=== PATIENT | female | born 1940 | race Caucasian/White ===

== ENCOUNTER 2020-01-30 03:41 | Inpatient (IN) | payer MEDICARE, OTHER ==
--- NOTE | 2020-01-30 04:22 | ED ---
General Adult HPI - General Chief complaint: Weakness Stated complaint: Dizziness, Weakness Time Seen by Provider: 01/30/20 04:09 Source: patient, EMS Mode of arrival: EMS Limitations: no limitations - History of Present Illness Initial comments: This patient is 79-year-old woman who presents to be evaluated for constellation of symptoms. She notes that she was feeling somewhat dizzy or lightheaded, she was having some nausea, and she states that her vision seemed off. She was seeing double. The symptoms occurred approximate 1-2 hours ago. She denies chest pain. She may have had a little bit of diaphoresis. Patient called EMS and brought here for evaluation. In addition, patient states she is feeling anxious and is having some bilateral perioral numbness. -: hour(s) Location: face Severity scale (1-10): 0 Consistency: constant Improves with: none Worsens with: none Associated Symptoms: diaphoresis, nausea/vomiting - Related Data Home Medications Medication Instructions Recorded Confirmed Acetaminophen-Codeine 300-30mg 1 tab PO Q6H PRN 01/30/20 01/30/20 [Tylenol w/codeine #3] Calcium Carbonate [Calcium] 600 mg PO DAILY 01/30/20 01/30/20 Etanercept [Enbrel Sureclick] 50 mg SQ SA 01/30/20 01/30/20 Fexofenadine HCl [Jackeline Allergy] 90 mg PO BID 01/30/20 01/30/20 Ondansetron [Zofran] 4 mg PO Q8H PRN 01/30/20 01/30/20 Previous Rx's Medication Instructions Recorded Aspirin 81 mg PO DAILY #30 chew 02/02/20 Atorvastatin [Lipitor] 40 mg PO HS #30 tab 02/02/20 Nitroglycerin Sl Tabs [Nitrostat] 0.4 mg SUBLINGUAL Q5M PRN #20 tab 02/02/20 Ticagrelor [Brilinta] 90 mg PO BID #30 tab 02/02/20 amLODIPine [Norvasc] 5 mg PO DAILY #30 tab 02/02/20 lisinopriL [Zestril] 20 mg PO DAILY #30 tab 02/02/20 Allergies Allergy/AdvReac Type Severity Reaction Status Date / Time Sulfa (Sulfonamide Allergy Rash/Hives Verified 01/30/20 08:51 Antibiotics) Review of Systems ROS Statement: Those systems with pertinent positive or pertinent negative responses have been documented in the HPI. ROS Other: All systems not noted in ROS Statement are negative. Constitutional: Denies: fever, chills, weakness Eyes: Reports: vision change. Denies: eye pain ENT: Denies: ear pain Respiratory: Reports: dyspnea. Denies: cough, wheezes Cardiovascular: Denies: chest pain, palpitations, orthopnea, edema, syncope Gastrointestinal: Reports: nausea. Denies: abdominal pain, vomiting Past Medical History Past Medical History: Hypertension Additional Past Medical History / Comment(s): Neuropathy, Arthritis History of Any Multi-Drug Resistant Organisms: None Reported Past Surgical History: Hysterectomy, Orthopedic Surgery Smoking Status: Never smoker Past Alcohol Use History: None Reported Past Drug Use History: None Reported - Past Family History Mother Family Medical History: Myocardial Infarction ([place]) Father Family Medical History: CVA/TIA General Exam General appearance: alert, in no apparent distress Head exam: Present: atraumatic, normocephalic, normal inspection Eye exam: Present: normal appearance, PERRL, EOMI. Absent: scleral icterus, conjunctival injection, nystagmus ENT exam: Present: normal oropharynx Neck exam: Present: normal inspection, full ROM Respiratory exam: Present: normal lung sounds bilaterally. Absent: respiratory distress, wheezes, rales, rhonchi, stridor Cardiovascular Exam: Present: regular rate, normal rhythm, normal heart sounds. Absent: systolic murmur, diastolic murmur, rubs, gallop GI/Abdominal exam: Present: soft. Absent: distended, tenderness, guarding, rebound, rigid, mass Extremities exam: Present: normal inspection, normal capillary refill. Absent: pedal edema, calf tenderness Back exam: Present: normal inspection. Absent: CVA tenderness (R), CVA tenderness (L) Neurological exam: Present: alert, oriented X3, CN II-XII intact. Absent: motor sensory deficit Skin exam: Present: warm, dry, intact, normal color. Absent: rash Course Vital Signs 01/30/20 01/30/20 01/30/20 04:01 05:56 09:01 Temperature 97.8 F 97.8 F Pulse Rate 73 71 85 Respiratory 18 18 16 Rate Blood Pressure 184/80 166/80 152/76 O2 Sat by Pulse 100 96 97 Oximetry EKG Findings - EKG Results: EKG: interpreted by NOÉ, sinus rhythm (Rate 72 bpm), normal axis, normal QRS - Blocks, [place], Hypertrophy, ST Abn: Repolarization changes or abnormalities: nonspecific abnormality, ST segment, and/or T wave Medical Decision Making - Medical Decision Making This patient is 79-year-old woman with constellation of symptoms including lightheadedness, dyspnea, nausea, [id number] numbness and diplopia. After my initial evaluation, I did send the patient for CT and also labs. The CT does not reveal evidence of stroke. On reevaluation, the patient's symptoms have all resolved. She states that she is no longer having diplopia. Workup does reveal minimally elevated troponin and patient will be kept for serial cardiac enzymes and telemetry monitoring. - Lab Data Result diagrams: 02/02/20 06:46 02/02/20 06:46 Lab Results 01/30/20 01/30/20 01/30/20 Range/Units 04:45 04:45 04:45 WBC 9.0 (3.8-10.6) k/uL RBC 4.48 (3.80-5.40) m/uL Hgb 13.4 (11.4-16.0) gm/dL Hct 41.1 (34.0-46.0) % MCV 91.6 (80.0-100.0) fL MCH 30.0 (25.0-35.0) pg MCHC 32.7 (31.0-37.0) g/dL RDW 12.9 (11.5-15.5) % Plt Count 216 (150-450) k/uL Neutrophils % 82 % Lymphocytes % 11 % Monocytes % 5 % Eosinophils % 1 % Basophils % 0 % Neutrophils # 7.4 (1.3-7.7) k/uL Lymphocytes # 1.0 (1.0-4.8) k/uL Monocytes # 0.5 (0-1.0) k/uL Eosinophils # 0.1 (0-0.7) k/uL Basophils # 0.0 (0-0.2) k/uL PT 10.2 (9.0-12.0) sec INR 1.0 (<1.2) APTT 20.7 L (22.0-30.0) sec Sodium (137-145) mmol/L Potassium (3.5-5.1) mmol/L Chloride (98-107) mmol/L Carbon Dioxide (22-30) mmol/L Anion Gap mmol/L BUN (7-17) mg/dL Creatinine (0.52-1.04) mg/dL Est GFR (CKD-EPI)AfAm (>60 ml/min/1.73 sqM) Est GFR (CKD-EPI)NonAf (>60 ml/min/1.73 sqM) Glucose (74-99) mg/dL Lactic Ac Sepsis Rflx Plasma Lactic Acid Burt (0.7-2.0) mmol/L Calcium (8.4-10.2) mg/dL Magnesium (1.6-2.3) mg/dL Total Bilirubin (0.2-1.3) mg/dL AST (14-36) U/L ALT (4-34) U/L Alkaline Phosphatase (38-126) U/L Troponin I (0.000-0.034) ng/mL Total Protein (6.3-8.2) g/dL Albumin (3.5-5.0) g/dL Urine Color Yellow Urine Appearance Clear (Clear) Urine pH 6.5 (5.0-8.0) Ur Specific Carlin 1.013 (1.001-1.035) Urine Protein Negative (Negative) Urine Glucose (UA) Negative (Negative) Urine Ketones 1+ H (Negative) Urine Blood Negative (Negative) Urine Nitrite Negative (Negative) Urine Bilirubin Negative (Negative) Urine Urobilinogen <2.0 (<2.0) mg/dL Ur Leukocyte Esterase Large H (Negative) Urine RBC 4 (0-5) /hpf Urine WBC 8 H (0-5) /hpf Ur Squamous Epith Cells 1 (0-4) /hpf Urine Bacteria Rare H (None) /hpf 01/30/20 01/30/20 01/30/20 Range/Units 04:45 04:45 04:45 WBC (3.8-10.6) k/uL RBC (3.80-5.40) m/uL Hgb (11.4-16.0) gm/dL Hct (34.0-46.0) % MCV (80.0-100.0) fL MCH (25.0-35.0) pg MCHC (31.0-37.0) g/dL RDW (11.5-15.5) % Plt Count (150-450) k/uL Neutrophils % % Lymphocytes % % Monocytes % % Eosinophils % % Basophils % % Neutrophils # (1.3-7.7) k/uL Lymphocytes # (1.0-4.8) k/uL Monocytes # (0-1.0) k/uL Eosinophils # (0-0.7) k/uL Basophils # (0-0.2) k/uL PT (9.0-12.0) sec INR (<1.2) APTT (22.0-30.0) sec Sodium 131 L (137-145) mmol/L Potassium 3.3 L (3.5-5.1) mmol/L Chloride 95 L (98-107) mmol/L Carbon Dioxide 24 (22-30) mmol/L Anion Gap 12 mmol/L BUN 24 H (7-17) mg/dL Creatinine 0.63 (0.52-1.04) mg/dL Est GFR (CKD-EPI)AfAm >90 (>60 ml/min/1.73 sqM) Est GFR (CKD-EPI)NonAf 87 (>60 ml/min/1.73 sqM) Glucose 161 H (74-99) mg/dL Lactic Ac Sepsis Rflx Plasma Lactic Acid Burt 2.2 H* (0.7-2.0) mmol/L Calcium 10.3 H (8.4-10.2) mg/dL Magnesium 1.2 L (1.6-2.3) mg/dL Total Bilirubin 0.7 (0.2-1.3) mg/dL AST 30 (14-36) U/L ALT 27 (4-34) U/L Alkaline Phosphatase 76 (38-126) U/L Troponin I 0.148 H* (0.000-0.034) ng/mL Total Protein 7.2 (6.3-8.2) g/dL Albumin 4.4 (3.5-5.0) g/dL Urine Color Urine Appearance (Clear) Urine pH (5.0-8.0) Ur Specific Carlin (1.001-1.035) Urine Protein (Negative) Urine Glucose (UA) (Negative) Urine Ketones (Negative) Urine Blood (Negative) Urine Nitrite (Negative) Urine Bilirubin (Negative) Urine Urobilinogen (<2.0) mg/dL Ur Leukocyte Esterase (Negative) Urine RBC (0-5) /hpf Urine WBC (0-5) /hpf Ur Squamous Epith Cells (0-4) /hpf Urine Bacteria (None) /hpf 01/30/20 Range/Units 05:40 WBC (3.8-10.6) k/uL RBC (3.80-5.40) m/uL Hgb (11.4-16.0) gm/dL Hct (34.0-46.0) % MCV (80.0-100.0) fL MCH (25.0-35.0) pg MCHC (31.0-37.0) g/dL RDW (11.5-15.5) % Plt Count (150-450) k/uL Neutrophils % % Lymphocytes % % Monocytes % % Eosinophils % % Basophils % % Neutrophils # (1.3-7.7) k/uL Lymphocytes # (1.0-4.8) k/uL Monocytes # (0-1.0) k/uL Eosinophils # (0-0.7) k/uL Basophils # (0-0.2) k/uL PT (9.0-12.0) sec INR (<1.2) APTT (22.0-30.0) sec Sodium (137-145) mmol/L Potassium (3.5-5.1) mmol/L Chloride (98-107) mmol/L Carbon Dioxide (22-30) mmol/L Anion Gap mmol/L BUN (7-17) mg/dL Creatinine (0.52-1.04) mg/dL Est GFR (CKD-EPI)AfAm (>60 ml/min/1.73 sqM) Est GFR (CKD-EPI)NonAf (>60 ml/min/1.73 sqM) Glucose (74-99) mg/dL Lactic Ac Sepsis Rflx Y Plasma Lactic Acid Burt (0.7-2.0) mmol/L Calcium (8.4-10.2) mg/dL Magnesium (1.6-2.3) mg/dL Total Bilirubin (0.2-1.3) mg/dL AST (14-36) U/L ALT (4-34) U/L Alkaline Phosphatase (38-126) U/L Troponin I (0.000-0.034) ng/mL Total Protein (6.3-8.2) g/dL Albumin (3.5-5.0) g/dL Urine Color Urine Appearance (Clear) Urine pH (5.0-8.0) Ur Specific Carlin (1.001-1.035) Urine Protein (Negative) Urine Glucose (UA) (Negative) Urine Ketones (Negative) Urine Blood (Negative) Urine Nitrite (Negative) Urine Bilirubin (Negative) Urine Urobilinogen (<2.0) mg/dL Ur Leukocyte Esterase (Negative) Urine RBC (0-5) /hpf Urine WBC (0-5) /hpf Ur Squamous Epith Cells (0-4) /hpf Urine Bacteria (None) /hpf Critical Care Time Critical Care Time: Yes (40 minutes) Disposition Clinical Impression: Acute coronary syndrome with high troponin, Transient diplopia, Hypomagnesemia, Hyponatremia Disposition: ADMITTED IP TO THIS [facility] Condition: Serious
[2020-01-30] MEDS ORDERED: ONDANSETRON 4 MG/2 ML VIAL IVP STA ×2 (04:59→07:08)
[2020-01-30 05:06] LABS: Basophils % (A) 0 %; Eosinophils # (A) 0.1 k/uL (0-0.7); Eosinophils % (A) 1 %; HCT 41.1 % (34.0-46.0); HGB 13.4 gm/dL (11.4-16.0); Lymphocytes % (A) 11 %; MCHC 32.7 g/dL (31.0-37.0); MCV 91.6 fL (80.0-100.0); Mean Platelet Volume 7.9; Monocytes # (A) 0.5 k/uL (0-1.0); Monocytes % (A) 5 %; Neutrophils # (A) 7.4 k/uL (1.3-7.7); Neutrophils % (A) 82 %; Platelet Count 216 k/uL (150-450); RBC 4.48 m/uL (3.80-5.40); RDW 12.9 % (11.5-15.5)
--- NOTE | 2020-01-30 05:07 | XR ---
EXAMINATION TYPE: XR chest 1V DATE OF EXAM: 01/30/2020 COMPARISON: NONE HISTORY: Weakness TECHNIQUE: FINDINGS: There are multiple old right-sided healed rib fractures. Lungs are clear of infiltrate. The re is no heart failure. Thoracic aorta is atheromatous. There are chest leads. Costophrenic angles ar e clear. There are old upper left side rib fractures also. IMPRESSION: No active cardiopulmonary disease. Minimal fibrotic changes. No heart failure.
[2020-01-30 05:19] LABS: Appearance,Urine Clear (Clear); Bacteria,Urine Rare /hpf; Bilirubin,Urine Negative (Negative); Blood,Urine Negative (Negative); Color,Urine Yellow; Glucose,Urine (UA) Negative (Negative); Ketones,Urine 1+ (Negative); Leukocyte Esterase,Urine Large (Negative); Nitrite,Urine Negative (Negative); PH, Urine 6.5 (5.0-8.0); Protein,Urine Negative (Negative); RBC,Urine 4 /hpf (0-5); Specific Gravity,Urine 1.013 (1.001-1.035); Squamous Epithelial Cell,Urine 1 /hpf (0-4); Urobilinogen,Urine <2.0 mg/dL (<2.0); WBC,Urine 8 /hpf (0-5)
[2020-01-30 05:21] LABS: ALT 27 U/L (4-34); AST 30 U/L (14-36); African American GFR (CKD) >90 (>60 ml/min/1.73 sqM); Albumin 4.4 g/dL (3.5-5.0); Alkaline Phosphatase 76 U/L (38-126); Anion Gap 12 mmol/L; Blood Urea Nitrogen 24 mg/dL (7-17); Calcium 10.3 mg/dL (8.4-10.2); Carbon Dioxide 24 mmol/L (22-30); Chloride 95 mmol/L (98-107); Glucose 161 mg/dL (74-99); Magnesium 1.2 mg/dL (1.6-2.3); Non-African American GFR(CKD) 87 (>60 ml/min/1.73 sqM); Potassium 3.3 mmol/L (3.5-5.1); Sodium 131 mmol/L (137-145); Total Bilirubin 0.7 mg/dL (0.2-1.3); Total Protein 7.2 g/dL (6.3-8.2)
--- NOTE | 2020-01-30 05:24 | CT ---
EXAMINATION TYPE: CT brain wo con DATE OF EXAM: 01/30/2020 COMPARISON: None HISTORY: Dizziness, N&V CT DLP: 1085 mGycm Automated exposure control for dose reduction was used. Images were obtained of the brain without contrast. There is extensive hypodensity in the periventricular white matter. There is no mass effect nor midli ne shift. There is no sign of intracranial hemorrhage. There is cerebral atrophy. Calvarium is intact . IMPRESSION: Cerebral atrophy. Extensive white matter hypodensity consistent with chronic small vessel ischemia.
[2020-01-30 05:25] LABS: Prothrombin Time 10.2 sec (9.0-12.0)
--- NOTE | 2020-01-30 05:27 | CT ---
EXAMINATION TYPE: CT angio head neck DATE OF EXAM: 01/30/2020 COMPARISON: None HISTORY: dizziness, N&V CT DLP: 327.8 mGycm Automated exposure control for dose reduction was used. CONTRAST: Performed with IV Contrast, patient injected with 65 mL of Isovue 370. Images were obtained from the aortic arch to the vertex of the brain with IV contrast. There are 3-D post processed images. There is normal branching pattern of the great vessels on the aortic arch. There is bilateral arteria l flow in the subclavian arteries. There is bilateral arterial flow in the common internal and skylights assembler al carotid arteries. The carotid artery bifurcations are widely patent. There is bilateral arterial f low in the vertebral arteries. There is arterial flow in the vertebrobasilar artery system. There is no evidence of carotid artery aneurysm or dissection. There is no evidence of stenosis. There is arterial flow in the anterior middle and posterior cerebral arteries. There is normal contra st opacification of the venous sinuses. I see no sign of intracranial aneurysm or neovascularity. The re is normal opacification of the venous sinuses. There is no mass effect. There is no evidence of in tracranial arterial stenosis. IMPRESSION: Negative CT angiogram of the neck. Negative CT angiogram of the brain.
[2020-01-30] MEDS ORDERED: SODIUM CHLORIDE 0.9% 500 ML 500 ML IV STA (05:44)
[2020-01-30] MEDS ORDERED: MAGNESIUM SULFATE-D5W PMX 1 GM in DEXTROSE/WATER 1 100ML.BAG IVPB ONE (05:44)
[2020-01-30] MEDS ORDERED: POTASSIUM CHLORIDE ER 20 MEQ TAB.ER PO STA ×2 (05:45→15:37)
[2020-01-30 06:08] LABS: Partial Thromboplastin Time 20.7 sec (22.0-30.0)
[2020-01-30] MEDS ORDERED: NITROGLYCERIN OINT 1 INCH/GM PACKET TOPICAL STA (06:34)
[2020-01-30] MEDS ORDERED: HEPARIN SODIUM,PORCINE 5,000 UNIT/ML 1 ML VIAL IV ONE (08:18)
[2020-01-30] MEDS ORDERED: NITROGLYCERIN SL TABS 0.4 MG TAB SUBLINGUAL PRN (08:18)
[2020-01-30] MEDS: HEPARIN SOD,PORK IN 0.45% NACL 25,000 UNIT in 0.45% NACL 1 250ML.BAG IV SCH (08:59)
--- NOTE | 2020-01-30 12:32 | P.CRDCN ---
History of Present Illness Consult date: 01/30/20 History of present illness: CHIEF COMPLAINT: Elevated troponins HISTORY OF PRESENT ILLNESS: 79-year-old female with a history of hypertension and hyperlipidemia who presented to the emergency room with a chief complaint of lightheadedness nausea, and double vision. Patient states she follows in the office with Dr. Redd. Patient reports she woke up this morning and was feeling lightheaded and nauseous. She states her lightheadedness has improved but she is still having some nausea. She also reports having some double vision this morning which has resolved. She denies any chest pain or pressure. Denies shortness of breath. Denies palpitations. Patient reports she was supposed to have a stress test done but it was canceled on a few occasions and she has not had it completed yet. She denies alcohol use or history of smoking. DIAGNOSTICS: EKG reveals sinus rhythm with ST depression Chest xray negative for acute process Laboratory data: W BC 9.0. Hemoglobin 13.4. Platelet count 216. Sodium 131. Potassium 3.3. BUN 24. Creatinine 0.63. Lactic acid 2.2. Repeat 1.1. Magnesium 1.2. Troponin 0.148. 1.050. 1.270. Current home cardiac medications include Zocor 5 mg daily, hydrochlorothiazide 25 mg daily, and Vasotec 10 mg daily REVIEW OF SYSTEMS: CONSTITUTIONAL: Denies fever or chills. HEENT: Denies blurred vision, vision changes, or eye pain. Denies hemoptysis CARDIOVASCULAR: Denies chest pain, orthopnea, PND or palpitations RESPIRATORY: No shortness of breath. GASTROINTESTINAL: Denies abdominal pain. Denies nausea or vomiting. HEMATOLOGIC: Denies bleeding disorders. GENITOURINARY: Denies any blood in urine. SKIN: Denies pruitis. Denies rash. PHYSICAL EXAM: VITAL SIGNS: Reviewed. GENERAL: Well-developed in no acute distress. HEENT: Head is normocephalic. Pupils are equal, round. Sclerae anicteric. Mucous membranes of the mouth are moist. Neck supple. No JVD or thyromegaly LUNGS: Respirations even and unlabored. Lungs essentially clear to auscultation bilaterally. HEART: Regular rate and rhythm. S1 and S2 heard. ABDOMEN: Soft. Nondistended. Nontender. EXTREMITIES: Normal range of motion. No clubbing or cyanosis. Peripheral pulses intact. No lower extremity edema NEUROLOGIC: Awake and alert. Oriented x 3. ASSESSMENT: Non-ST elevated myocardial infarction Hypertension Hyperlipidemia PLAN: Continue IV heparin drip Resume home antihypertensive medications. Monitor blood pressure Begin aspirin 81 mg daily Continue nitro paste every 6 hours Obtain 2-D echo to assess cardiac structure and function Nothing by mouth at midnight Patient will be reevaluated tomorrow morning for possible cardiac catheterization Nurse practitioner note has been reviewed by physician. Signing provider agrees with the documented findings, assessment, and plan of care. Past Medical History Past Medical History: Hypertension Additional Past Medical History / Comment(s): Neuropathy, Arthritis History of Any Multi-Drug Resistant Organisms: None Reported Past Surgical History: Hysterectomy, Orthopedic Surgery Smoking Status: Never smoker Past Alcohol Use History: None Reported Past Drug Use History: None Reported Medications and Allergies Home Medications Medication Instructions Recorded Confirmed Type Acetaminophen-Codeine 300-30mg 1 tab PO Q6H PRN 01/30/20 01/30/20 History [Tylenol w/codeine #3] Calcium Carbonate [Calcium] 600 mg PO DAILY 01/30/20 01/30/20 History Enalapril Maleate [Vasotec] 10 mg PO DAILY 01/30/20 01/30/20 History Etanercept [Enbrel Sureclick] 50 mg SQ SA 01/30/20 01/30/20 History Fexofenadine HCl [Jackeline Allergy] 90 mg PO BID 01/30/20 01/30/20 History Nitrofurantoin Monohyd/M-Cryst 100 mg PO W/BRKFST 01/30/20 01/30/20 History [Macrobid] Ondansetron [Zofran] 4 mg PO Q8H PRN 01/30/20 01/30/20 History Simvastatin [Zocor] 5 mg PO HS 01/30/20 01/30/20 History hydroCHLOROthiazide [Hydrodiuril] 25 mg PO DAILY 01/30/20 01/30/20 History Allergies Allergy/AdvReac Type Severity Reaction Status Date / Time Sulfa (Sulfonamide Allergy Rash/Hives Verified 01/30/20 08:51 Antibiotics) Physical Exam Vitals: Vital Signs Temp Pulse Resp BP Pulse Ox 01/30/20 09:01 97.8 F 85 16 152/76 97 01/30/20 05:56 71 18 166/80 96 01/30/20 04:01 97.8 F 73 18 184/80 100 Intake and Output 01/29/20 01/30/20 01/30/20 22:59 06:59 14:59 Other: Weight 58.967 kg Results 01/30/20 04:45 01/30/20 04:45 Cardiac Enzymes 01/30/20 01/30/20 01/30/20 Range/Units 04:45 04:45 08:37 AST 30 (14-36) U/L Troponin I 0.148 H* 1.050 H* (0.000-0.034) ng/mL 01/30/20 Range/Units 11:21 AST (14-36) U/L Troponin I 1.270 H* (0.000-0.034) ng/mL Coagulation 01/30/20 Range/Units 04:45 PT 10.2 (9.0-12.0) sec APTT 20.7 L (22.0-30.0) sec CBC 01/30/20 Range/Units 04:45 WBC 9.0 (3.8-10.6) k/uL RBC 4.48 (3.80-5.40) m/uL Hgb 13.4 (11.4-16.0) gm/dL Hct 41.1 (34.0-46.0) % Plt Count 216 (150-450) k/uL Comprehensive Metabolic Panel 01/30/20 Range/Units 04:45 Sodium 131 L (137-145) mmol/L Potassium 3.3 L (3.5-5.1) mmol/L Chloride 95 L (98-107) mmol/L Carbon Dioxide 24 (22-30) mmol/L BUN 24 H (7-17) mg/dL Creatinine 0.63 (0.52-1.04) mg/dL Glucose 161 H (74-99) mg/dL Calcium 10.3 H (8.4-10.2) mg/dL AST 30 (14-36) U/L ALT 27 (4-34) U/L Alkaline Phosphatase 76 (38-126) U/L Total Protein 7.2 (6.3-8.2) g/dL Albumin 4.4 (3.5-5.0) g/dL Current Medications Generic Name Dose Route Start Last Admin Trade Name Freq PRN Reason Stop Dose Admin Aspirin 81 mg 01/31/20 09:00 Aspirin PO DAILY [facility] Heparin Sodium/Sodium Chloride 250 mls @ 7.076 mls/hr 01/30/20 08:30 01/30/20 08:59 25,000 unit/ Sodium Chloride IV 12 units/kg/hr .Q24H MARCUS 7.076 mls/hr Administration Protocol 12 UNITS/KG/HR Lisinopril 20 mg 01/30/20 11:45 Zestril PO DAILY [facility] Nitroglycerin 0.4 mg 01/30/20 08:18 Nitrostat SUBLINGUAL Q5M PRN Chest Pain Intake and Output 01/29/20 01/30/20 01/30/20 22:59 06:59 14:59 Other: Weight 58.967 kg 01/30/20 04:45 01/30/20 04:45
[2020-01-30] MEDS: lisinopriL 20 MG TAB PO SCH (13:07)
[2020-01-30] MEDS ORDERED: POTASSIUM CHLORIDE ER 20 MEQ TAB.ER PO SCH (17:00)
[2020-01-30] MEDS ORDERED: lisinopriL 20 MG TAB PO STA (21:12)
[2020-01-30] MEDS: ATORVASTATIN 10 MG TAB PO SCH (21:25)
[2020-01-30] MEDS: DOCUSATE 100 MG CAP PO PRN (21:25)
[2020-01-30] MEDS: hydroCHLOROthiazide 25 MG TAB PO SCH (21:25)
[2020-01-30] MEDS: MELATONIN 3 MG TABLET PO PRN (21:26)
[2020-01-31 06:37] LABS: Cholesterol 173 mg/dL (<200); HDL Cholesterol 76 mg/dL (40-60); LDL Cholesterol,Calculated 85 mg/dL (0-99); Triglycerides 59 mg/dL (<150)
[2020-01-31] MEDS: ASPIRIN 81 MG PO SCH (08:43)
[2020-01-31] MEDS: hydroCHLOROthiazide 25 MG TAB PO SCH (08:43)
[2020-01-31] MEDS: lisinopriL 20 MG TAB PO SCH (08:43)
[2020-01-31] MEDS: FAMOTIDINE 20 MG/2 ML VIAL IV SCH ×2 (08:43→20:55)
[2020-01-31] MEDS ORDERED: ASPIRIN 325 MG TAB PO SCH (09:00)
--- NOTE | 2020-01-31 09:19 | ECHOF ---
Referral Reason:LV function MEASUREMENTS -------- HEIGHT: 157.5 cm WEIGHT: 59.0 kg BP: 166/80 IVSd: 1.2 cm (0.6 - 1.1) LVIDd: 3.3 cm (3.9 - 5.3) LVPWd: 1.4 cm (0.6 - 1.1) EDV(Teich): 43 ml IVSs: 1.6 cm LVIDs: 1.8 cm LVPWs: 1.6 cm %IVS Thck: 35 % ESV(Teich): 10 ml EF(Teich): 76 % %FS: 44 % SV(Teich): 33 ml RVIDd: 3.2 cm (< 3.3) IVC: 22.15 mm RA Diam: 3.7 cm SALOMON Planimetry: 1.6 cm LALs A4C: 4.7 cm LAAs A4C: 17.7 cm LAESV A-L A4C: 56 ml LAESV MOD A4C: 55 ml LALs A2C: 5.4 cm LAAs A2C: 17.5 cm LAESV A-L A2C: 48 ml LAESV MOD A2C: 47 ml LAESV(A-L): 56 ml LAESV Index (A-L): 34.91 ml/m Ao Diam: 2.6 cm (2.0 - 3.7) AV Cusp: 1.0 cm (1.5 - 2.6) EPSS: 0.1 cm MV E William: 1.26 m/s MV DecT: 139 ms MV Dec Frontier: 9.1 m/s MV A William: 1.46 m/s MV E/A Ratio: 0.86 MV PHT: 40 ms LVOT Vmax: 1.28 m/s LVOT maxP.57 mmHg AV Vmax: 1.74 m/s AV maxP.10 mmHg AR Vmax: 4.40 m/s AR maxP.56 mmHg AR PHT: 372 ms AR Dec Time: 1281 ms AR Dec Frontier: 3.4 m/s TR Vmax: 3.69 m/s TR maxP.61 mmHg RAP: 20.00 mmHg RVSP: 74.61 mmHg MV EF SLOPE: 50.94 mm/s (70 - 150) MV EXCURSION: 12.41 mm (> 18.000) FINDINGS -------- This was a technically adequate study. The left ventricular size is normal. There is mild concentric left ventricular hypertrophy. Overa ll left ventricular systolic function is normal with, an EF between 55 - 60 %. Both the mean atrial pressure as well as the LV end diastolic pressure is elevated 16.87. The right ventricle is normal in size. LA is moderately dilated 34-39 ml/m2 The right atrial size is normal. Interatrial and interventricular septum intact. The aortic valve is trileaflet and appears structurally normal. 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 There is mild aortic regurgitation. There is no evidence of aortic stenosis. Moderate mitral regurgitation is present. Moderate to severe tricuspid regurgitation present. There is severe pulmonary hypertension. The r ight ventricular systolic pressure, as measured by Doppler, is 74.61mmHg. There is no pulmonic regurgitation present. The aortic root size is normal. The inferior vena cava is dilated with poor inspiratory collapse which is consistent with estimated r ight atrial pressure of 20 mmHg. There is no pericardial effusion. CONCLUSIONS -------- 1. The left ventricular size is normal. 2. There is mild concentric left ventricular hypertrophy. 3. Overall left ventricular systolic function is normal with, an EF between 55 - 60 %. 4. Both the mean atrial pressure as well as the LV end diastolic pressure is elevated 16.87. 5. LA is moderately dilated 34-39 ml/m2 6. There is mild aortic valve sclerosis. 7. There is mild aortic regurgitation. 8. Moderate mitral regurgitation is present. 9. Moderate to severe tricuspid regurgitation present. 10. There is modetae pulmonary hypertension. 11. The right ventricular systolic pressure, as measured by Doppler, is 74.61mmHg is 60 mm 12. The inferior vena cava is dilated with poor inspiratory collapse which is consistent with estimat ed right atrial pressure of 20 mmHg. IT AUDITOR: Emmy Mckee RDCS
--- NOTE | 2020-01-31 10:30 | P.PN ---
Subjective Progress Note Date: 01/31/20 CHIEF COMPLAINT: Elevated troponins HISTORY OF PRESENT ILLNESS: Patient examined this morning the bedside. Patient denies chest pain. Denies shortness of breath. Denies dizziness this morning. Vital signs are stable. Echocardiogram completed yesterday reveals ejection fraction between 55 and 60%, mild aortic regurg, moderate mitral regurgitation, moderate to severe tricuspid regurgitation and moderate pulmonary hypertension. PHYSICAL EXAM: VITAL SIGNS: Reviewed. GENERAL: Well-developed in no acute distress. HEENT: Head is normocephalic. Pupils are equal, round. Sclerae anicteric. Mucous membranes of the mouth are moist. Neck supple. No JVD or thyromegaly LUNGS: Respirations even and unlabored. Lungs essentially clear to auscultation bilaterally. HEART: Regular rate and rhythm. S1 and S2 heard. ABDOMEN: Soft. Nondistended. Nontender. EXTREMITIES: Normal range of motion. No clubbing or cyanosis. Peripheral pulses intact. No lower extremity edema NEUROLOGIC: Awake and alert. Oriented x 3. ASSESSMENT: Non-ST elevated myocardial infarction Hypertension Hyperlipidemia Moderate to severe tricuspid regurgitation Moderate pulmonary hypertension PLAN: Continue IV heparin drip Continue current cardiac medications Resume diet today. Nothing by mouth at midnight Patient to undergo cardiac cath tomorrow with Dr. Yen Stop heparin drip at 0600 Nurse practitioner note has been reviewed by physician. Signing provider agrees with the documented findings, assessment, and plan of care. Objective - Vital Signs Vital signs: Vital Signs Temp 99.2 F 01/31/20 08:00 Pulse 70 01/31/20 08:00 Resp 16 01/31/20 08:00 BP 129/60 01/31/20 08:00 Pulse Ox 97 01/31/20 08:00 Intake & Output 01/30/20 01/31/20 01/31/20 18:59 06:59 18:59 Intake Total 526 Output Total 750 300 Balance 526 -750 -300 Weight 58.967 kg 52.8 kg Intake: Intake, IV Titration 50 Amount Heparin Sod,Pork in 0.45% 50 NaCl 25,000 unit In 0.45 % NaCl 1 250ml.bag @ 12 UNITS/KG/HR 7.076 mls/hr IV .Q24H MARCUS Rx#: [id number] Oral 476 Output: Urine 750 300 Other: Voiding Method Bedside Commode Bedside Commode # Voids 3 1 2 # Bowel Movements 1 2 - Labs CBC & Chem 7: 01/30/20 04:45 01/30/20 04:45 Labs: Abnormal Lab Results - Last 24 Hours (Table) 01/30/20 01/30/20 01/30/20 Range/Units 11:21 12:11 21:15 APTT 45.9 H (22.0-30.0) sec D-Dimer 0.69 H (<0.60) mg/L FEU Troponin I 1.270 H* (0.000-0.034) ng/mL HDL Cholesterol (40-60) mg/dL 01/31/20 01/31/20 Range/Units 05:47 05:47 APTT 42.2 H (22.0-30.0) sec D-Dimer (<0.60) mg/L FEU Troponin I (0.000-0.034) ng/mL HDL Cholesterol 76 H (40-60) mg/dL
--- NOTE | 2020-01-31 17:28 | P.HPIM ---
History of Present Illness This is a pleasant 79 years old female with past medical history of hypertension and arthritis.she is a pt of . She presents because yesterday she felt double vision which lasted for an hour and it is associated with nausea and sweating which happened about 2:00 in the morning after she woke up. So she decided to come to the emergency room Patient denies headache, blurred vision is improved now, no weakness or numbness , no blurred vision currently, no slurred speech Patient denies chest pain or dyspnea, no abdominal pain, no change in urine or bowel habits. No fever Vitas looks stable. CBC is unremarkable. INR is 1.0. Troponin is elevated at 0.1, 1.0, 1.2, low sodium 131 and potassium 3.3, creatinine normal 0.6, lactic acid is high-risk 2.2 came back to normal at 1.1, magnesium level I.2. Liver enzymes not elevated D-dimer is at 0.6 Chest x-ray: No acute process. CTA of the brain is negative for head and neck. CT of the brain: Negligible process. Patient is on heparin drip, and aspirin Review of Systems CONSTITUTIONAL: No fever, no malaise, no fatigue. HEENT: No recent visual problems or hearing problems. Denied any sore throat. CARDIOVASCULAR: No orthopnea, PND, no palpitations, no syncope. PULMONARY: No shortness of breath, no cough, no hemoptysis. GASTROINTESTINAL: No diarrhea, no nausea, no vomiting, no abdominal pain. Normoactive bowel sounds. NEUROLOGICAL: No headaches, no weakness, no numbness. HEMATOLOGICAL: Denies any bleeding or petechiae. GENITOURINARY: Denies any burning micturition, frequency, or urgency. MUSCULOSKELETAL/RHEUMATOLOGICAL: Denies any joint pain, swelling, or any muscle pain. ENDOCRINE: Denies any polyuria or polydipsia. Past Medical History Past Medical History: Hypertension Additional Past Medical History / Comment(s): Neuropathy, Arthritis History of Any Multi-Drug Resistant Organisms: None Reported Past Surgical History: Hysterectomy, Orthopedic Surgery Additional Past Surgical History / Comment(s): bilat shoulder surgey Smoking Status: Never smoker Past Alcohol Use History: None Reported Past Drug Use History: None Reported - Past Family History Mother Family Medical History: Myocardial Infarction (DE) Father Family Medical History: CVA/TIA Medications and Allergies Home Medications Medication Instructions Recorded Confirmed Type Acetaminophen-Codeine 300-30mg 1 tab PO Q6H PRN 01/30/20 01/30/20 History [Tylenol w/codeine #3] Calcium Carbonate [Calcium] 600 mg PO DAILY 01/30/20 01/30/20 History Enalapril Maleate [Vasotec] 10 mg PO DAILY 01/30/20 01/30/20 History Etanercept [Enbrel Sureclick] 50 mg SQ SA 01/30/20 01/30/20 History Fexofenadine HCl [Jackeline Allergy] 90 mg PO BID 01/30/20 01/30/20 History Nitrofurantoin Monohyd/M-Cryst 100 mg PO W/BRKFST 01/30/20 01/30/20 History [Macrobid] Ondansetron [Zofran] 4 mg PO Q8H PRN 01/30/20 01/30/20 History Simvastatin [Zocor] 5 mg PO HS 01/30/20 01/30/20 History hydroCHLOROthiazide [Hydrodiuril] 25 mg PO DAILY 01/30/20 01/30/20 History Allergies Allergy/AdvReac Type Severity Reaction Status Date / Time Sulfa (Sulfonamide Allergy Rash/Hives Verified 01/30/20 08:51 Antibiotics) Physical Exam Vitals: Vital Signs Temp Pulse Pulse Resp BP BP Pulse Ox 01/31/20 03:30 98.1 F 75 16 144/67 96 01/31/20 03:11 18 01/30/20 23:00 97.9 F 79 18 133/63 96 01/30/20 19:50 97.8 F 84 20 165/67 97 01/30/20 19:45 18 01/30/20 16:00 86 16 141/65 97 01/30/20 12:00 90 16 163/75 98 01/30/20 09:01 97.8 F 85 16 152/76 97 Intake and Output 01/30/20 01/31/20 01/31/20 22:59 06:59 14:59 Intake Total 236 Output Total 150 600 Balance 86 -600 Intake: Oral 236 Output: Urine 150 600 Other: Voiding Method Bedside Commode Bedside Commode # Voids 1 1 2 # Bowel Movements 1 2 Weight 52.8 kg GENERAL: The patient is alert and oriented x3, not in any acute distress. Well developed, well nourished. HEENT: Pupils are round and equally reacting to light. EOMI. No scleral icterus. No conjunctival pallor. Normocephalic, atraumatic. No pharyngeal erythema. No thyromegaly. CARDIOVASCULAR: S1 and S2 present. No murmurs, rubs, or gallops. PULMONARY: Chest is clear to auscultation, no wheezing or crackles. ABDOMEN: Soft, nontender, nondistended, normoactive bowel sounds. No palpable organomegaly. MUSCULOSKELETAL: No joint swelling or deformity. EXTREMITIES: No cyanosis, clubbing, or pedal edema. NEUROLOGICAL: Gross neurological examination did not reveal any focal deficits. SKIN: No rashes. No petechiae Results CBC & Chem 7: 01/30/20 04:45 01/30/20 04:45 Labs: Abnormal Lab Results - Last 24 Hours (Table) 01/30/20 01/30/20 01/30/20 Range/Units 08:37 11:21 12:11 APTT (22.0-30.0) sec D-Dimer 0.69 H (<0.60) mg/L FEU Troponin I 1.050 H* 1.270 H* (0.000-0.034) ng/mL HDL Cholesterol (40-60) mg/dL 01/30/20 01/31/20 01/31/20 Range/Units 21:15 05:47 05:47 APTT 45.9 H 42.2 H (22.0-30.0) sec D-Dimer (<0.60) mg/L FEU Troponin I (0.000-0.034) ng/mL HDL Cholesterol 76 H (40-60) mg/dL Thrombosis Risk Factor Assmnt - Choose All That Apply Each Risk Factor Represents 3 Points: Age 75 years or older Other congenital or acquired thrombophilia - If yes, enter type in comment: No Thrombosis Risk Factor Assessment Total Risk Factor Score: 3 Thrombosis Risk Factor Assessment Level: Moderate Risk Assessment and Plan Assessment: Elevated troponin, non STEMI Mild hyponatremia Elevated lactic acid came back to normal Double vision for 1 hour yesterday, resolved. Rule out TIA. Electrolyte abnormalities with low potassium and magnesium Hypertension Arthritis Plan: This is a pleasant 79 years old female who presents with non-STEMI, continue with heparin drip, continue with aspirin. Check echocardiogram. Cardiology consult Also she had double vision for 1 hour yesterday, was concern for TIA, I explained to the patient the risk of progression to stroke, I told her there is no neurologist in the hospital and she appears to be transferred to a tertiary care center for neurological evaluation and she opted to wait until Saturday where our hospital neurologist will be back, in the meantime we'll check carotid Doppler, echocardiogram, lipid profile, TSH and hemoglobin A1c. She was started on aspirin and we will continue with that, she got a dose on the day of admission Labs and medication were reviewed.. Continue same treatment. Continue with symptomatic treatment. Resume home medication. Monitor lytes and vitals. DVT and GI prophylaxis. Further recommendations of the clinical course of the patient DVT prophylaxis: heparin GI Prophylaxis: Pepcid Prognosis is guarded
[2020-01-31] MEDS: MELATONIN 3 MG TABLET PO PRN (20:55)
[2020-01-31] MEDS: ATORVASTATIN 10 MG TAB PO SCH (20:55)
[2020-01-31] MEDS: HEPARIN SOD,PORK IN 0.45% NACL 25,000 UNIT in 0.45% NACL 1 250ML.BAG IV SCH (21:00)
[2020-02-01] MEDS: ASPIRIN 81 MG PO SCH (04:34)
[2020-02-01] MEDS ORDERED: Acetaminophen-Codeine 300-30mg TAB PO PRN (05:00)
[2020-02-01] MEDS ORDERED: SODIUM CHLORIDE 0.9% 1,000 ML in EMPTY BAG 1 BAG IV ONE (06:00)
[2020-02-01] MEDS ORDERED: NITROGLYCERIN SL TABS 0.4 MG TAB SUBLINGUAL PRN ×2 (06:00→10:48)
[2020-02-01] MEDS ORDERED: ASPIRIN 325 MG TAB PO ONE (06:00)
[2020-02-01] MEDS ORDERED: ATORVASTATIN 80 MG TAB PO ONE (06:00)
[2020-02-01] MEDS ORDERED: ALPRAZolam 0.5 MG TAB PO PRN (06:00)
[2020-02-01] MEDS ORDERED: ALPRAZolam 0.25 MG TAB PO PRN (06:00)
[2020-02-01] MEDS: hydroCHLOROthiazide 25 MG TAB PO SCH (06:02)
[2020-02-01] MEDS: lisinopriL 20 MG TAB PO SCH (06:02)
[2020-02-01] MEDS: FAMOTIDINE 20 MG/2 ML VIAL IV SCH ×2 (06:02→20:58)
[2020-02-01] MEDS: HEPARIN SOD,PORK IN 0.45% NACL 25,000 UNIT in 0.45% NACL 1 250ML.BAG IV SCH (08:48)
[2020-02-01] MEDS ORDERED: LORATADINE 10 MG TAB PO SCH ×2 (09:00→21:00)
[2020-02-01] MEDS ORDERED: IV FLUID CONTINUATION 1,000 ML IV ONE (09:31)
[2020-02-01] MEDS ORDERED: MIDAZOLAM 2 MG/2 ML VIAL IV ONE (09:44)
[2020-02-01] MEDS ORDERED: LIDOCAINE 1% INJ 10MG/ML (20 ML MDV) SQ ONE (09:46)
[2020-02-01] MEDS ORDERED: TICAGRELOR 90 MG TAB PO ONE (10:14)
[2020-02-01] MEDS ORDERED: NITROGLYCERIN 1000MCG/10ML SYRINGE INTRACORON ONE (10:28)
[2020-02-01] MEDS ORDERED: IOPAMIDOL-370 125ML BTL INJ ONE (10:34)
[2020-02-01] MEDS ORDERED: IOPAMIDOL-370 100ML BTL INJ ONE (10:39)
[2020-02-01] MEDS ORDERED: MAG HYDROX/AL HYDROX/SIMETH 30 ML CUP PO PRN (10:48)
[2020-02-01] MEDS ORDERED: RX INFO: IV CONTRAST WAS GIVEN 1 EACH MISC MISCELLANE PRN (10:48)
[2020-02-01] MEDS ORDERED: ZOLPIDEM 5 MG TAB PO PRN (10:48)
[2020-02-01] MEDS ORDERED: ATROPINE SULFATE 0.1 MG/ML 10ML SYRINGE IV PRN (10:48)
--- NOTE | 2020-02-01 10:56 | P.PRCINT ---
Percutaneous Coronary Int. - Percutaneous Coronary Intervention Percutaneous Coronary Intervention: Procedures performed: Left coronary angiography, PCI of proximal LAD with a Xience 3.0 x 15mm JEMAL, post dilated with a 3.5 NC balloon, Angioseal Procedure performed by: Dr Gurwinder Hutchins DO Indications: Non-STEMI, coronary artery disease HPI: Patient is a pleasant 79-year-old female with history of hypertension, hyperlipidemia, pulmonary hypertension and tricuspid regurgitation who presented secondary to chest pain and was found to have non-STEMI. A diagnostic heart catheterization was performed by my partner to further assess, please see separate dictation for full details. The patient was found to have mild disease of the RCA, normal left main and mild circumflex disease with a proximal LAD focal 80% stenosis. I was asked to perform intervention to the LAD. Conscious sedation: Conscious sedation was performed under the direct supervion of myself using Versed and Fentanyl for a total of 46 mins. Description of procedure: The risks, benefits and alternatives of heart catheterization and PCI were explained in detail to the patient before the procedure and informed consent was obtained. Patient had diagnostic coronary angiography performed by my partner and was left on the catheterization table. Patient had been prepped and draped in the usual fashion and a 6Fr sheath had been placed in the right femoral artery by my partner. A decision was made to intervene on the proximal LAD. Heparin was given. A 6Fr Voda 3.5 guide was used to engage the left main. A 0.014 BMW wire was placed in the distal vessel. Next predilation was performed using a 2.5 x 12 balloon. A 3.0 x 15 Xience JEMAL stent was then placed. The stent was postdilated with a 3.5 x 12 mm noncompliant balloon. Angiograms were obtained in multiple views. Pre intervention there was 80 % stenosis and VANESSA 3 flow and post intervention there was 0 % residual stenosis, and VANESSA 3 flow, mild distal step down however no evidence of any dissection. The wire was then removed and final angiograms were obtained. A right femoral angiogram was performed which showed adequate anatomy for closure. A 6-Wolof Angio-Seal was placed with hemostasis achieved. The patient tolerated the procedure well. The patient was transferred to the post catheterization holding area in stable condition. Conclusions: 1. Successful PCI of proximal LAD with a 3.0 x 15 mm Xience JEMAL, postdilated with a 3.5 noncompliant balloon. 2. Non-STEMI Plan: 1. Aggressive risk factor modifications per most recent ACC/AHA guidelines. 2. Continue dual antiplatelets for 12 months.
--- NOTE | 2020-02-01 11:07 | CC ---
CARDIAC CATHETERIZATION REPORT PROCEDURE: Cardiac catheterization. INDICATION: Unstable angina. REFERRING PHYSICIAN: Dr. Emerson. PROCEDURE NOTE: After obtaining informed consent, left heart catheterization and coronary angiogram was performed via the right femoral artery using standard Chelita catheters. Patient tolerated the procedure well without any obvious immediate complications. ANESTHESIA: The patient received moderate conscious sedation. Total sedation time was 9 minutes. FINDINGS: HEMODYNAMICS: Left ventricular end-diastolic pressure is 10 to 12 mm. There is no significant gradient across the aortic valve. LEFT VENTRICULOGRAM: Not performed. ANGIOGRAPHIC DATA: The left main coronary artery is a normal-sized vessel, appears calcified but is free of significant stenosis. Divides into left anterior descending coronary artery and circumflex coronary artery. Proximal LAD shows a 70-80 percent focal stenosis. Circumflex coronary artery and its branches are free of significant disease. Right coronary artery is a dominant vessel with significant stenosis. CONCLUSION: A 70-80% focal stenosis involving the left anterior descending. PLAN: Patient will undergo angioplasty with stent placement of the same. She has calcified coronaries. MMODL / IJN: [id number] /
--- NOTE | 2020-02-01 11:10 | LTR ---
Dave Emerson M.D. RE: Chanel Jarrett Dear Dr. Emerson: I performed cardiac catheterization on Chanel Jarrett. A detail catheterization note is enclosed for your records. In brief cardiac catheterization reveals a focal 70-80% stenosis involving proximal LAD and the patient will undergo angioplasty with stent placement of the same. Thank you for giving us the privilege to participate in the care of this pleasant lady. Sincerely, Heron Yen M.D. LEFTY / CHACORTA: [id number] /
[2020-02-01] MEDS: NITROFURANTOIN MONOHYD/M-CRYST 100 MG CAP PO SCH (12:21)
[2020-02-01 13:03] LABS: African American GFR (CKD) >90 (>60 ml/min/1.73 sqM); Anion Gap 7 mmol/L; Blood Urea Nitrogen 13 mg/dL (7-17); Calcium 8.3 mg/dL (8.4-10.2); Carbon Dioxide 26 mmol/L (22-30); Chloride 92 mmol/L (98-107); Glucose 102 mg/dL (74-99); Non-African American GFR(CKD) >90 (>60 ml/min/1.73 sqM); Potassium 3.3 mmol/L (3.5-5.1); Sodium 125 mmol/L (137-145)
[2020-02-01 13:07] LABS: Basophils % (A) 0 %; Eosinophils % (A) 1 %; HCT 36.5 % (34.0-46.0); HGB 11.9 gm/dL (11.4-16.0); Lymphocytes # (A) 1.1 k/uL (1.0-4.8); Lymphocytes % (A) 12 %; MCHC 32.6 g/dL (31.0-37.0); MCV 92.1 fL (80.0-100.0); Monocytes # (A) 0.8 k/uL (0-1.0); Monocytes % (A) 8 %; Neutrophils # (A) 7.2 k/uL (1.3-7.7); Neutrophils % (A) 78 %; Platelet Count 206 k/uL (150-450); RBC 3.96 m/uL (3.80-5.40); RDW 13.1 % (11.5-15.5); WBC 9.2 k/uL (3.8-10.6)
[2020-02-01 13:49] VITALS: BMI 21.4
--- NOTE | 2020-02-01 13:53 | US ---
EXAMINATION TYPE: US carotid duplex BILAT DATE OF EXAM: 02/01/2020 COMPARISON: NONE CLINICAL HISTORY: 79-year-old female double vision TECHNIQUE: Carotid duplex ultrasound examination. Indirect Doppler criteria was utilized. FINDINGS: EXAM MEASUREMENTS: RIGHT: Peak Systolic Velocity (PSV) cm/sec ----- Right CCA: 90.0 ----- Right ICA: 97.3 ----- Right ECA: 87.1 ICA/CCA ratio: 1.1 RIGHT: End Diastole cm/sec ----- Right CCA: 0 ----- Right ICA: 5.7 ----- Right ECA: 4.2 LEFT: Peak Systolic Velocity (PSV) cm/sec ----- Left CCA: 89.4 ----- Left ICA: 109.4 ----- Left ECA: 100.2 ICA/CCA ratio: 1.2 LEFT: End Diastole cm/sec ----- Left CCA: 10.6 ----- Left ICA: 0 ----- Left ECA: 0 VERTEBRALS (direction of flow): Right Vertebral: Antegrade Left Vertebral: Antegrade Rhythm: Normal Blackener notes: Vessels dive deep. No significant stenosis seen IMPRESSION: No hemodynamically significant internal carotid artery stenosis on either side. Criteria for Assigning % of Stenosis / Diameter reduction (Estimation based on the indirect measurements of the internal carotid artery velocities (ICA PSV). 1. Normal (no stenosis)=ICA PSV < 125 cm/s: ratio < 2.0: ICA EDV<40 cm/s. 2. Less than 50% stenosis=ICA PSV < 125 cm/s: ratio < 2.0: ICA EDV<40 cm/s. 3. 50 to 69% stenosis=ICA PSV of 125 to 230 cm/s: ration 2.0 ? 4.0: ICA EDV 40-100 cm/s. 4. Greater than 70% stenosis to near occlusion= ICA PSV > 230 cm/s: ratio > 4.0: ICA EDV > 100 cm/s. 5. Near occlusion= ICA PSV velocities may be low or undetectable: variable ratio and ICA EDV. 6. Total occlusion=unable to detect flow.
--- NOTE | 2020-02-01 15:45 | P.CNNES ---
History of Present Illness Consult date: 02/01/20 Requesting physician: Ajit E Sheet Reason for Consult: doulbe vision History of Present Illness: This is a 79-year-old right-handed female with medical history of hypertension and arthritis (Osteoarthritis and Rheumatoid) that presented to the emergency department on 01/30/2020 for double vision that lasted the 1 hour. He stated double vision the was associate with nausea and sweating which happened at 2:00 in the morning after waking-up. She stated that that the she noticed that she's having diplopia as her initial presentation and the diplopia was on both eyes and that was [id number]. When she covered either eye that did not resolve. Patient denies blurry vision associated with this. There is no headache associated with this. She felt the later diaphoretic and had a vomiting episode upon arrival with EMS. She also had oral numbness. She didn't have any weakness or any difficulty getting her words out. She didn't complain of dizziness upon asking her but was reported that that she was having dizziness and lightheadedness. The episode lasted 1 hour and after that she did have any further diplopia or numbness around her mouth. Currently she feels like she is back at baseline. Workup in the hospital consisted of: Initial vital sign is blood pressure of 184/80, heart rate of 73, temperature of 97.8 Fahrenheit, respiratory rate of 18 and pulse ox of 100 at room air. The patient had CT of the head which was reported as cerebral atrophy. Extensive white matter hypodensity consistent with chronic small vessel ischemia. I personally reviewed the CT of the head and I didn't see any acute ischemia hemorrhage I didn't appreciate the small vessel ischemic changes. CT Angiogram of the head and neck was reported as negative.. EKG was reported as normal sinus rhythm. Possible left atrial enlargement. Ventricular rate of 72. Nonspecific ST and T-wave abnormality. Bilateral carotid duplex was reported as no hemodynamically significant internal carotid artery stenosis on either side. Patient had elevated troponin levels: Initially 0.148 then the repeated was 1.050. Patient was started on heparin drip patient was taken for cardiac cath. She had PCI of proximal LAD on 02/01/20 Of note patient is not on any aspirin or Plavix at home. She is on simvastatin but she does not recall the dose. She does not have any history of strokes or TIA as in the past. Patient also complaining of numbness and tingling of bilateral feet up to the midcalf that's been going on for last 2 months. She sometimes has lower extremity and edema that she noticed. There is no associated lower back pain with this but does have chronic lower back pain intermittently without any radiation to the back. Currently she has no lower back pain that. She denies any urinary bowel incontinence. Review of Systems Review of system: The 12 point system was reviewed and apparent positive and negative per HPI. Past Medical History Past Medical History: Hypertension Additional Past Medical History / Comment(s): Neuropathy, Arthritis History of Any Multi-Drug Resistant Organisms: None Reported Past Surgical History: Hysterectomy, Orthopedic Surgery Additional Past Surgical History / Comment(s): bilat shoulder surgey Smoking Status: Never smoker Past Alcohol Use History: None Reported Past Drug Use History: None Reported - Past Family History Mother Family Medical History: Myocardial Infarction ([place]) Father Family Medical History: CVA/TIA Medications and Allergies Home Medications Medication Instructions Recorded Confirmed Type Acetaminophen-Codeine 300-30mg 1 tab PO Q6H PRN 01/30/20 01/30/20 History [Tylenol w/codeine #3] Calcium Carbonate [Calcium] 600 mg PO DAILY 01/30/20 01/30/20 History Enalapril Maleate [Vasotec] 10 mg PO DAILY 01/30/20 01/30/20 History Etanercept [Enbrel Sureclick] 50 mg SQ SA 01/30/20 01/30/20 History Fexofenadine HCl [Jackeline Allergy] 90 mg PO BID 01/30/20 01/30/20 History Nitrofurantoin Monohyd/M-Cryst 100 mg PO W/BRKFST 01/30/20 01/30/20 History [Macrobid] Ondansetron [Zofran] 4 mg PO Q8H PRN 01/30/20 01/30/20 History Simvastatin [Zocor] 5 mg PO HS 01/30/20 01/30/20 History hydroCHLOROthiazide [Hydrodiuril] 25 mg PO DAILY 01/30/20 01/30/20 History Allergies Allergy/AdvReac Type Severity Reaction Status Date / Time Sulfa (Sulfonamide Allergy Rash/Hives Verified 01/30/20 08:51 Antibiotics) Physical Examination - Vital Signs Vital Signs: Vital Signs Temp Pulse Resp BP Pulse Ox 02/01/20 11:18 83 16 158/72 98 02/01/20 11:03 87 16 166/78 95 02/01/20 10:48 82 16 172/74 98 02/01/20 08:00 98.1 F 70 16 149/68 98 02/01/20 04:00 80 18 150/68 94 L 02/01/20 00:00 74 18 144/66 98 01/31/20 20:00 98.0 F 75 16 138/64 97 01/31/20 16:00 16 Intake and Output 02/01/20 02/01/20 02/01/20 06:59 14:59 22:59 Intake Total 73.414 206 Output Total 500 Balance 73.414 -294 Intake: IV 100 Intake, IV Titration 73.414 106 Amount Heparin Sod,Pork in 0.45% 73.414 NaCl 25,000 unit In 0.45 % NaCl 1 250ml.bag @ 12 UNITS/KG/HR 7.076 mls/hr IV .Q24H [facility] Rx#: [id number] Sodium Chloride 0.9% 1, 106 000 ml In Empty Bag 1 bag @ 1 ML/KG/HR 52.8 mls/hr IV .[id number] ONE Rx#: [id number] Output: Urine 500 Other: Voiding Method Bedside Commode Bedside Commode # Voids 3 Weight 53.1 kg 53.1 kg GENERAL: The patient is lying in bed and is not in acute distress. CHEST: The heart rate is regular rate rhythm. No murmurs to auscultation. No carotid bruit bilaterally. LUNG: Clear to auscultation bilaterally no wheezing noted throughout. Not labored breathing. ABDOMEN/GI: Bowel sounds present in all 4 quadrants. No tenderness to palpation throughout. NEUROLOGICAL: Higher mental function: The patient is awake, alert, oriented to self, place and time. Patient is following commands. No aphasia and no neglect. Cranial nerves: The pupils are round, equal and reactive to light and accommodation. Visual lozada are full to confrontation throughout. Extraocular movement is intact no nystagmus is noted. Facial sensation is normal to touch throughout. The facial strength is normal throughout. Hearing is normal bilaterally to hand rub. Tongue is midline and moved [id number] without any difficulty. No dysarthria is noted. Shoulder shrug is normal bilaterally. Motor: Gait defered since patient just had cardiac procedure. The strength in right lower extremity could not be assessed because of recent procedure. Otherwise strength is 5 over 5 throughout. Normal tone and bulk. Cerebellum: Normal finger to nose bilaterally. Sensation: Sensation is normal to touch throughout. Reflexes (right/left): Unable to assess right lower extremity because of recent procedure. Otherwise 2+ throughout except left patellar is 3+ and ankle is 1+. Plantars are downgoing bilaterally. - Constitutional General appearance: cooperative Results Calcium of 10.3. Magnesium is 1.2. Initial sodium 131 repeated is 125. Initial troponin was 0.148 repeated is 1.05 TSH of 2.19 Lipid panel of LDL of 85, HDL 76, TG 59, Cholestrol 85 Initial crack study the PT is 10.2, INR 1.0, PTT of 20.7. 2-D echo was done and was reported as mild concentric left ventricular hypertrophy. Ejection fraction 55-60%. Both the mean atrial pressure as well as the left ventricular end-diastolic pressure is elevated. Left atrial is moderately dilated. Moderate to severe tricuspid regurgitation present. Moderate pulmonary hypertension. - Laboratory Findings CBC and BMP: 02/01/20 03:43 02/01/20 03:43 Abnormal Lab Findings: Abnormal Labs 01/30/20 01/30/20 01/30/20 04:45 04:45 04:45 APTT 20.7 L D-Dimer Sodium 131 L Potassium 3.3 L Chloride 95 L BUN 24 H Creatinine Glucose 161 H Plasma Lactic Acid Burt Calcium 10.3 H Magnesium 1.2 L Troponin I HDL Cholesterol Urine Ketones 1+ H Ur Leukocyte Esterase Large H Urine WBC 8 H Urine Bacteria Rare H 01/30/20 01/30/20 01/30/20 04:45 04:45 08:37 APTT D-Dimer Sodium Potassium Chloride BUN Creatinine Glucose Plasma Lactic Acid Burt 2.2 H* Calcium Magnesium Troponin I 0.148 H* 1.050 H* HDL Cholesterol Urine Ketones Ur Leukocyte Esterase Urine WBC Urine Bacteria 01/30/20 01/30/20 01/30/20 11:21 12:11 21:15 APTT 45.9 H D-Dimer 0.69 H Sodium Potassium Chloride BUN Creatinine Glucose Plasma Lactic Acid Burt Calcium Magnesium Troponin I 1.270 H* HDL Cholesterol Urine Ketones Ur Leukocyte Esterase Urine WBC Urine Bacteria 01/31/20 01/31/20 01/31/20 05:47 05:47 21:31 APTT 42.2 H 33.5 H D-Dimer Sodium Potassium Chloride BUN Creatinine Glucose Plasma Lactic Acid Burt Calcium Magnesium Troponin I HDL Cholesterol 76 H Urine Ketones Ur Leukocyte Esterase Urine WBC Urine Bacteria 02/01/20 02/01/20 03:43 03:43 APTT 55.4 H D-Dimer Sodium 125 L Potassium 3.3 L Chloride 92 L BUN Creatinine 0.49 L Glucose 102 H Plasma Lactic Acid Burt Calcium 8.3 L Magnesium Troponin I HDL Cholesterol Urine Ketones Ur Leukocyte Esterase Urine WBC Urine Bacteria Assessment and Plan Assessment: Transient episode of diplopia possibly due to cardiac etiology, NON-STEMI. Peripheral neuropathy (2month episode of numbness and tingling of bilateral feet) Electrolyte imbalance (Hyponatremia--unsure if chronic or acute, hypercalcemia) PCI of the proximal LAD (02/01/20) Non-STEMI Elevated hypertension Significant history of Arthritis (Osteoarthritis and Rheumatoid) Plan: CT of the head which was reported as cerebral atrophy. Extensive white matter hypodensity consistent with chronic small vessel ischemia. I personally reviewed the CT of the head and I didn't see any acute ischemia hemorrhage I didn't appreciate the small vessel ischemic changes. CT Angiogram of the head and neck was reported as negative.. Bilateral carotid duplex was reported as no hemodynamically significant internal carotid artery stenosis on either side. 2-D echo was done and was reported as mild concentric left ventricular hypertrophy. Ejection fraction 55-60%. Both the mean atrial pressure as well as the left ventricular end-diastolic pressure is elevated. Left atrial is moderately dilated. Moderate to severe tricuspid regurgitation present. Moderate pulmonary hypertension. TSH of 2.19 Lipid panel of LDL of 85, HDL 76, TG 59, Cholestrol 85. Currently the patient is on aspirin 81 mg, Brilinta 90mg bid and Lipitor 10mg. From a neurology perspective Aspirin is sufficient for secondary stroke prophylaxis (since was not on antiplateletes at home) but will defer use of antiplatelet to cardiology. Regarding the patient's history of a two-month numbness of her lower feet up to the ankles associate with numbness and sometimes swelling of the lower extremity likely she has peripheral neuropathy. Patient was notified that the she needs an EMG with nerve conduction as an outpatient. I'll start the patient on gabapentin 100 mg a daily at bedtime and can go up 100 mg every 8 up until 300 mg at night to see if the patient tolerated the medication that helps. Patient did state that she has arthritis that significant and sometimes she gets some back pain without any radiation or bladder bowel problems she did have hyperalert reflexia she was told that that she likely needs imaging of her lower back possibly consider MRI lumbar spine to rule out any myelopathy and spondylosis. Regarding the patient hyponatremia and the mild the hypercalcemia will lead defer the management to the primary team. I will order ionized calcium. Regarding the patient and Non-STEMI and we'll defer to cardiology. Thank you for the consult. Anjum Steiner M.D. Neuro-hospitalist Time with Patient: Greater than 30
[2020-02-01 19:48] LABS: Hemoglobin A1C 5.8 % (4.0-6.0)
[2020-02-01] MEDS: DOCUSATE 100 MG CAP PO PRN (20:58)
[2020-02-01] MEDS: ATORVASTATIN 10 MG TAB PO SCH (20:59)
[2020-02-01] MEDS: MELATONIN 3 MG TABLET PO PRN (20:59)
[2020-02-01] MEDS: TICAGRELOR 90 MG TAB PO SCH (20:59)
--- NOTE | 2020-02-01 21:44 | P.PN ---
Subjective This is a pleasant 79 years old female with past medical history of hypertension and arthritis.she is a pt of . She presents because yesterday she felt double vision which lasted for an hour and it is associated with nausea and sweating which happened about 2:00 in the morning after she woke up. So she decided to come to the emergency room Patient denies headache, blurred vision is improved now, no weakness or numbness, no blurred vision currently, no slurred speech Patient denies chest pain or dyspnea, no abdominal pain, no change in urine or bowel habits. No fever Vitas looks stable. CBC is unremarkable. INR is 1.0. Troponin is elevated at 0.1, 1.0, 1.2, low sodium 131 and potassium 3.3, creatinine normal 0.6, lactic acid is high-risk 2.2 came back to normal at 1.1, magnesium level I.2. Liver enzymes not elevated D-dimer is at 0.6 Chest x-ray: No acute process. CTA of the brain is negative for head and neck. CT of the brain: Negligible process. Patient is on heparin drip, and aspirin Patient is awake and alert, no chest pain or dyspnea, no more episodes of blurred vision She had noticed STEMI and she underwent cardiac cath with stent placement in the LAD, she is currently on aspirin and Plavix and heparin drip was stopped Neurologist evaluated the patient for her double vision, workup has been negat akbar so far including CT of the brain, CTA of the head and neck and carotid duplex. No further workup and neurologist recommended to continue with aspirin 81 mg 4 prophylaxis for future stroke as she was not on aspirin at home , The top of that she will be also on Plavix for cardiac reason which will help further prevent a stroke also Patient was having back pain with hyperreflexia by neurologist recommended MRI of the spine, we will discuss with the neurologist about his recommendations to be done as inpatient or outpatient. Objective - Vital Signs Vital signs: Vital Signs Temp 98.2 F 02/01/20 16:00 Pulse 85 02/01/20 16:00 Resp 16 02/01/20 16:00 BP 175/74 02/01/20 16:00 Pulse Ox 95 02/01/20 16:00 Intake & Output 01/31/20 02/01/20 02/01/20 18:59 06:59 18:59 Intake Total 656 331.433 656 Output Total 1050 500 Balance -394 331.433 156 Weight 53.1 kg 53.1 kg Intake: IV 100 Intake, IV Titration 476 331.433 556 Amount Heparin Sod,Pork in 0.45% 56 331.433 NaCl 25,000 unit In 0.45 % NaCl 1 250ml.bag @ 12 UNITS/KG/HR 7.076 mls/hr IV .Q24H [facility] Rx#: [id number] Sodium Chloride 0.9% 1, 420 556 000 ml In Empty Bag 1 bag @ 1 ML/KG/HR 52.8 mls/hr IV .[id number] [facility] Rx#: [id number] Oral 180 Output: Urine 1050 500 Other: Voiding Method Bedside Commode Bedside Commode Bedside Commode # Voids 1 3 # Bowel Movements 2 - Exam GENERAL: The patient is alert and oriented x3, not in any acute distress. Well developed, well nourished. HEENT: Pupils are round and equally reacting to light. EOMI. No scleral icterus. No conjunctival pallor. Normocephalic, atraumatic. No pharyngeal erythema. No thyromegaly. CARDIOVASCULAR: S1 and S2 present. No murmurs, rubs, or gallops. PULMONARY: Chest is clear to auscultation, no wheezing or crackles. ABDOMEN: Soft, nontender, nondistended, normoactive bowel sounds. No palpable o rganomegaly. MUSCULOSKELETAL: No joint swelling or deformity. EXTREMITIES: No cyanosis, clubbing, or pedal edema. NEUROLOGICAL: Gross neurological examination did not reveal any focal deficits. SKIN: No rashes. No petechiae - Labs CBC & Chem 7: 02/01/20 03:43 02/01/20 03:43 Labs: Abnormal Lab Results - Last 24 Hours (Table) 01/31/20 02/01/20 02/01/20 Range/Units 21:31 03:43 03:43 APTT 33.5 H 55.4 H (22.0-30.0) sec Sodium 125 L (137-145) mmol/L Potassium 3.3 L (3.5-5.1) mmol/L Chloride 92 L (98-107) mmol/L Creatinine 0.49 L (0.52-1.04) mg/dL Glucose 102 H (74-99) mg/dL Calcium 8.3 L (8.4-10.2) mg/dL Assessment and Plan Assessment: Elevated troponin, non STEMI Episodes of back pain with hyperreflexia Elevated lactic acid came back to normal Double vision for 1 hour yesterday, resolved. Neurologist recommended to continue with aspirin Electrolyte abnormalities with low potassium and magnesium Hypertension Arthritis Plan: This is a pleasant 79 years old female who presents with non-STEMI, status post stent of the LAD, continue with aspirin and Plavix and other medication per car diologist Neurologist recommended to continue with aspirin now for her TIA. However his recommending MRI for back pain and hyperreflexia Labs and medication were reviewed.. Continue same treatment. Continue with symptomatic treatment. Resume home medication. Monitor lytes and vitals. DVT and GI prophylaxis. Further recommendations of the clinical course of the patient DVT prophylaxis: heparin GI Prophylaxis: Pepcid Prognosis is guarded
[2020-02-01] MEDS ORDERED: Potassium Replacement Protocol 1 EACH MISC MISCELLANE PRN (21:45)
[2020-02-02] MEDS: POTASSIUM CHLORIDE ER 20 MEQ TAB.ER PO SCH ×2 (00:44→00:47)
[2020-02-02 04:21] VITALS: TEMP 98.4
[2020-02-02 07:19] LABS: Basophils % (A) 0 %; Eosinophils % (A) 0 %; HCT 37.9 % (34.0-46.0); HGB 12.4 gm/dL (11.4-16.0); Lymphocytes # (A) 0.9 k/uL (1.0-4.8); Lymphocytes % (A) 11 %; MCH 29.4 pg (25.0-35.0); MCHC 32.7 g/dL (31.0-37.0); MCV 89.9 fL (80.0-100.0); Mean Platelet Volume 7.6; Monocytes # (A) 0.5 k/uL (0-1.0); Monocytes % (A) 6 %; Neutrophils # (A) 6.9 k/uL (1.3-7.7); Neutrophils % (A) 80 %; Platelet Count 194 k/uL (150-450); RBC 4.22 m/uL (3.80-5.40); RDW 12.9 % (11.5-15.5); WBC 8.7 k/uL (3.8-10.6)
[2020-02-02 07:34] LABS: African American GFR (CKD) >90 (>60 ml/min/1.73 sqM); Anion Gap 9 mmol/L; Blood Urea Nitrogen 12 mg/dL (7-17); Calcium 8.5 mg/dL (8.4-10.2); Carbon Dioxide 28 mmol/L (22-30); Chloride 89 mmol/L (98-107); Glucose 99 mg/dL (74-99); Non-African American GFR(CKD) >90 (>60 ml/min/1.73 sqM); Potassium 3.5 mmol/L (3.5-5.1); Sodium 126 mmol/L (137-145)
[2020-02-02] MEDS: hydroCHLOROthiazide 25 MG TAB PO SCH (08:40)
[2020-02-02] MEDS: lisinopriL 20 MG TAB PO SCH (08:40)
[2020-02-02] MEDS: TICAGRELOR 90 MG TAB PO SCH (08:40)
[2020-02-02] MEDS: NITROFURANTOIN MONOHYD/M-CRYST 100 MG CAP PO SCH (08:40)
[2020-02-02] MEDS: FAMOTIDINE 20 MG/2 ML VIAL IV SCH (08:40)
[2020-02-02 08:46] VITALS: RESP 16
[2020-02-02] MEDS ORDERED: ASPIRIN 81 MG PO SCH (09:00)
[2020-02-02] MEDS ORDERED: HEPARIN SODIUM,PORCINE 5,000 UNIT/ML 1 ML VIAL SQ SCH (09:00)
--- NOTE | 2020-02-02 12:51 | P.PN ---
Subjective Progress Note Date: 02/02/20 CHIEF COMPLAINT: Elevated troponins HISTORY OF PRESENT ILLNESS: Patient is s/p cardiac cath with stent placement to the LAD. Patient examined this morning at the bedside. Patient denies chest pain. Denies shortness of breath. Vital signs are stable. PHYSICAL EXAM: VITAL SIGNS: Reviewed. GENERAL: Well-developed in no acute distress. HEENT: Head is normocephalic. Pupils are equal, round. Sclerae anicteric. Mucous membranes of the mouth are moist. Neck supple. No JVD or thyromegaly LUNGS: Respirations even and unlabored. Lungs essentially clear to auscultation bilaterally. HEART: Regular rate and rhythm. S1 and S2 heard. ABDOMEN: Soft. Nondistended. Nontender. EXTREMITIES: Normal range of motion. No clubbing or cyanosis. Peripheral pulses intact. No lower extremity edema NEUROLOGIC: Awake and alert. Oriented x 3. ASSESSMENT: Non-ST elevated myocardial infarction Hypertension Hyperlipidemia Moderate to severe tricuspid regurgitation Moderate pulmonary hypertension PLAN: Continue current cardiac medications Patient may be discharged home today and follow up outpatient with Dr. Redd Nurse practitioner note has been reviewed by physician. Signing provider agrees with the documented findings, assessment, and plan of care. Objective - Vital Signs Vital signs: Vital Signs Temp 98.4 F 02/02/20 04:00 Pulse 85 02/02/20 08:00 Resp 16 02/02/20 11:58 BP 143/70 02/02/20 08:00 Pulse Ox 97 02/02/20 08:00 Intake & Output 02/01/20 02/02/20 02/02/20 18:59 06:59 18:59 Intake Total 656 240 Output Total 500 800 Balance 156 -800 240 Weight 53.1 kg 52.2 kg Intake: IV 100 Intake, IV Titration 556 Amount Sodium Chloride 0.9% 1, 556 000 ml In Empty Bag 1 bag @ 1 ML/KG/HR 52.8 mls/hr IV .[id number] [facility] Rx#: [id number] Oral 240 Output: Urine 500 800 Other: Voiding Method Bedside Commode Bedside Commode Bedside Commode # Voids 2 - Labs CBC & Chem 7: 02/02/20 06:46 02/02/20 06:46 Labs: Abnormal Lab Results - Last 24 Hours (Table) 02/01/20 02/01/20 02/01/20 Range/Units 03:43 21:24 21:24 Lymphocytes # (1.0-4.8) k/uL Sodium 125 L 126 L (137-145) mmol/L Potassium 3.3 L 3.0 L (3.5-5.1) mmol/L Chloride 92 L 89 L (98-107) mmol/L Creatinine 0.49 L (0.52-1.04) mg/dL Glucose 102 H (74-99) mg/dL Calcium 8.3 L (8.4-10.2) mg/dL Ionized Calcium Brooke 4.4 L (4.5-5.3) mg/dL 02/02/20 02/02/20 Range/Units 06:46 06:46 Lymphocytes # 0.9 L (1.0-4.8) k/uL Sodium 126 L (137-145) mmol/L Potassium (3.5-5.1) mmol/L Chloride 89 L (98-107) mmol/L Creatinine 0.47 L (0.52-1.04) mg/dL Glucose (74-99) mg/dL Calcium (8.4-10.2) mg/dL Ionized Calcium Brooke (4.5-5.3) mg/dL
[2020-02-02] MEDS ORDERED: amLODIPine 5 MG TAB PO SCH (14:00)
--- NOTE | 2020-02-02 14:24 | P.PN ---
Subjective Progress Note Date: 02/02/20 The patient was seen at bedside and the she stated that she's doing well as she hasn't had any further episodes of diplopia. Denies any headache episodes denies any weakness numbness. Denies any dizziness episodes. Objective - Vital Signs Vital signs: Vital Signs Temp 98.4 F 02/02/20 04:00 Pulse 85 02/02/20 08:00 Resp 16 02/02/20 11:58 BP 143/70 02/02/20 08:00 Pulse Ox 97 02/02/20 08:00 Intake & Output 02/01/20 02/02/20 02/02/20 18:59 06:59 18:59 Intake Total 656 240 Output Total 500 800 Balance 156 -800 240 Weight 53.1 kg 52.2 kg Intake: IV 100 Intake, IV Titration 556 Amount Sodium Chloride 0.9% 1, 556 000 ml In Empty Bag 1 bag @ 1 ML/KG/HR 52.8 mls/hr IV .[id number] ONE Rx#: [id number] Oral 240 Output: Urine 500 800 Other: Voiding Method Bedside Commode Bedside Commode Bedside Commode # Voids 2 - Exam GENERAL: The patient is lying in bed and is not in acute distress. CHEST: The heart rate is regular rate rhythm. No murmurs to auscultation. No carotid bruit bilaterally. LUNG: Clear to auscultation bilaterally no wheezing noted throughout. Not labored breathing. ABDOMEN/GI: Bowel sounds present in all 4 quadrants. No tenderness to palpation throughout. NEUROLOGICAL: Higher mental function: The patient is awake, alert, oriented to self, place and time. Patient is following commands. No aphasia and no neglect. Cranial nerves: The pupils are round, equal and reactive to light and accommodation. Visual lozada are full to confrontation throughout. Extraocular movement is intact no nystagmus is noted. Facial sensation is normal to touch throughout. The facial strength is normal throughout. Hearing is normal bilaterally to hand rub. Tongue is midline and moved [id number] without any difficulty. No dysarthria is noted. Shoulder shrug is normal bilaterally. Motor: Gait defered since patient just had cardiac procedure. The strength in right lower extremity could not be assessed because of recent procedure. Otherwise strength is 5 over 5 throughout. Normal tone and bulk. Cerebellum: Normal finger to nose bilaterally. Sensation: Sensation is normal to touch throughout. Reflexes (right/left): Unable to assess right lower extremity because of recent procedure. Otherwise 2+ throughout except left patellar is 3+ and ankle is 1+. Plantars are downgoing bilaterally. - Labs CBC & Chem 7: 02/02/20 06:46 02/02/20 06:46 Labs: Abnormal Lab Results - Last 24 Hours (Table) 02/01/20 02/01/20 02/02/20 Range/Units 21:24 21:24 06:46 Lymphocytes # (1.0-4.8) k/uL Sodium 126 L 126 L (137-145) mmol/L Potassium 3.0 L (3.5-5.1) mmol/L Chloride 89 L 89 L (98-107) mmol/L Creatinine 0.47 L (0.52-1.04) mg/dL Ionized Calcium Brooke 4.4 L (4.5-5.3) mg/dL 02/02/20 Range/Units 06:46 Lymphocytes # 0.9 L (1.0-4.8) k/uL Sodium (137-145) mmol/L Potassium (3.5-5.1) mmol/L Chloride (98-107) mmol/L Creatinine (0.52-1.04) mg/dL Ionized Calcium Brooke (4.5-5.3) mg/dL Assessment and Plan Assessment: Transient episode of diplopia possibly due to cardiac etiology, NON-STEMI. Peripheral neuropathy (2month episode of numbness and tingling of bilateral feet) Electrolyte imbalance (Hyponatremia and hypocalcemia) PCI of the proximal LAD (02/01/20) Non-STEMI Elevated hypertension Significant history of Arthritis (Osteoarthritis and Rheumatoid) Plan: CT of the head which was reported as cerebral atrophy. Extensive white matter hypodensity consistent with chronic small vessel ischemia. I personally reviewed the CT of the head and I didn't see any acute ischemia hemorrhage I didn't appreciate the small vessel ischemic changes. CT Angiogram of the head and neck was reported as negative.. Bilateral carotid duplex was reported as no hemodynamically significant internal carotid artery stenosis on either side. 2-D echo was done and was reported as mild concentric left ventricular hypertrophy. Ejection fraction 55-60%. Both the mean atrial pressure as well as the left ventricular end-diastolic pressure is elevated. Left atrial is moderately dilated. Moderate to severe tricuspid regurgitation present. Moderate pulmonary hypertension. TSH of 2.19 Lipid panel of LDL of 85, HDL 76, TG 59, Cholestrol 85. Currently the patient is on aspirin 81 mg, Brilinta 90mg bid and Lipitor 40mg. From a neurology perspective Aspirin is sufficient for secondary stroke prophylaxis (since was not on antiplateletes at home) but will defer use of antiplatelet to cardiology. Patient calcium level is 8.3 and ionized calcium is 4.4. Regarding the patient's history of a two-month numbness of her lower feet up to the ankles associate with numbness and sometimes swelling of the lower extremity likely she has peripheral neuropathy. Patient was notified that the she needs an EMG with nerve conduction as an outpatient. I'll start the patient on gabapentin 100 mg a daily at bedtime and can go up 100 mg every 8 up until 300 mg at night to see if the patient tolerated the medication that helps. Patient did state that she has arthritis that significant and sometimes she gets some back pain without any radiation or bladder bowel problems she did have hyperalert reflexia she was told that that she likely needs imaging of her lower back possibly consider MRI lumbar spine to rule out any myelopathy and spondylosis as outpatient. We'll defer the electrolyte imbalance correction to the primary team. Regarding the patient and Non-STEMI and we'll defer to cardiology. Patient was notified to follow up with a neurologist as an outpatient as well as sand conditioner. She said that showed he has an sand conditioner that she sees and that we'll try to schedule an earlier appointment. No further workup is needed at. Patient is clear from neurology. We will sign off. Anjum Steiner M.D. Neuro-hospitalist Time with Patient: Greater than 30
[2020-02-02] MEDS ORDERED: GABAPENTIN 100 MG CAP PO SCH (14:30)
[2020-02-02 14:41] VITALS: BP 168/72; PULSE 91
[2020-02-02] MEDS ORDERED: ATORVASTATIN 40 MG TAB PO SCH (21:00)
[2020-02-02] MEDS ORDERED: FAMOTIDINE 20 MG TAB PO SCH (21:00)
== END 2020-02-02 16:07 | disposition home or self-care (01) | DRG 247 ==
LOC: EC 03:41 → 3SCARD 08:18
PROVIDERS: ADMIT Hospitalist; ATTEND Hospitalist
PROC: 027034Z Dilation of Coronary Artery, One Artery with Drug-eluting Intraluminal Device, Percutaneous Approach (ICD-10-PCS; principal; 2020-02-01 09:00)
PROC: B2111ZZ Fluoroscopy of Multiple Coronary Arteries using Low Osmolar Contrast (ICD-10-PCS; 2020-02-01 09:00)
PROC: 4A023N7 Measurement of Cardiac Sampling and Pressure, Left Heart, Percutaneous Approach (ICD-10-PCS; 2020-02-01 09:00)
DX: I21.4 Non-ST elevation (NSTEMI) myocardial infarction (principal); E87.1 Hypo-osmolality and hyponatremia; I27.20 Pulmonary hypertension, unspecified; I25.110 Atherosclerotic heart disease of native coronary artery with unstable angina pectoris; M19.90 Unspecified osteoarthritis, unspecified site; H53.2 Diplopia; E83.42 Hypomagnesemia; E78.5 Hyperlipidemia, unspecified; I10 Essential (primary) hypertension; G62.9 Polyneuropathy, unspecified; R29.2 Abnormal reflex; I08.3 Combined rheumatic disorders of mitral, aortic and tricuspid valves; M54.5 Low back pain; E83.51 Hypocalcemia; M06.9 Rheumatoid arthritis, unspecified; G89.29 Other chronic pain; Z79.82 Long term (current) use of aspirin; Z79.02 Long term (current) use of antithrombotics/antiplatelets; Z79.899 Other long term (current) drug therapy; Z88.2 Allergy status to sulfonamides; Z90.710 Acquired absence of both cervix and uterus; Z82.49 Family history of ischemic heart disease and other diseases of the circulatory system; Z98.890 Other specified postprocedural states; Z82.3 Family history of stroke; Z79.1 Long term (current) use of non-steroidal anti-inflammatories (NSAID); Z79.891 Long term (current) use of opiate analgesic
CPT/HCPCS: 36415; 70450; 70496; 70498; 71045; 80048; 80051; 80053; 80061; 81001; 82330; 82607; 83036; 83605; 83735; 84443; 84484; 85025; 85347; 85379; 85610; 85730; 93005; 93306; 93458; 93880; 96365; 96367; 96375; 96376; 99291

== ENCOUNTER 2024-10-25 16:03 | Inpatient (IN) | payer MEDICARE, OTHER ==
--- NOTE | 2024-10-25 16:35 | ED ---
Chest Pain HPI - General Chief Complaint: Chest Pain Stated Complaint: Abd/Chest pain Time Seen by Provider: 10/25/24 16:23 Source: patient, RN notes reviewed, old records reviewed Mode of arrival: ambulatory Limitations: no limitations - History of Present Illness Initial Comments: This is a 84-year-old female to the ER for evaluation of believe he woke up with pain that was in her normal today. History of CAD history of stent coming in with chest pain back pain, no shortness of breath noted. No recent cough congestion fever, no travel history no recent illnesses. Patient been feeling well lately on fatigued doing normal activities of daily living. Pain started today she has history of arthritis believes this pain is different than her norm al daily pains MD Complaint: chest pain, other (Abdominal pain back pain) -: hour(s) Onset: during rest, awoke with symptoms Pain Location: left chest, epigastric Pain Radiation: back Severity: moderate Severity scale (1-10): 6 Quality: aching Consistency: constant Improves With: nothing Worsens With: nothing Anginal Symptoms: sense of impending doom Other Symptoms: palpitations Treatments Prior to Arrival: none - Related Data Home Medications Medication Instructions Recorded Confirmed Calcium Carbonate [Calcium] 600 mg PO DAILY 01/30/20 10/25/24 Etanercept [Enbrel Sureclick] 50 mg SQ TH 01/30/20 10/25/24 Fexofenadine HCl [Jackeline Allergy] 90 mg PO BID 01/30/20 10/25/24 Cholecalciferol [Vitamin D3 (25 50 mcg PO DAILY 10/25/24 10/25/24 Mcg = 1000 Iu)] Metoprolol Tartrate [Lopressor] 25 mg PO HS 10/25/24 10/25/24 Metoprolol Tartrate [Lopressor] 50 mg PO DAILY 10/25/24 10/25/24 Previous Rx's Medication Instructions Recorded Atorvastatin [Lipitor] 40 mg PO HS #30 tab 02/02/20 Nitroglycerin Sl Tabs [Nitrostat] 0.4 mg SUBLINGUAL Q5M PRN #20 tab 02/02/20 amLODIPine [Norvasc] 5 mg PO DAILY #30 tab 02/02/20 lisinopriL [Zestril] 20 mg PO DAILY #30 tab 02/02/20 Amoxic-Pot Clav 875-125Mg 1 tab PO BID #10 tab 11/01/24 [Augmentin 875-125] Aspirin 81 mg PO DAILY tab 11/01/24 Psyllium Husk 100% [Metamucil 6 gm PO DAILY #7 packet 11/01/24 Packet] Allergies Allergy/AdvReac Type Severity Reaction Status Date / Time Sulfa (Sulfonamide Allergy Rash/Hives Verified 10/25/24 18:34 Antibiotics) Review of Systems ROS Statement: Those systems with pertinent positive or pertinent negative responses have been documented in the HPI. ROS Other: All systems not noted in ROS Statement are negative. EKG Findings - EKG Comments: EKG Findings:: EKG is sinus 97 NM 140 QRS 88 QTc 400 - EKG Results: EKG: interpreted by NOÉ Past Medical History Past Medical History: Hypertension Additional Past Medical History / Comment(s): Neuropathy, Arthritis History of Any Multi-Drug Resistant Organisms: None Reported Past Surgical History: Hysterectomy, Orthopedic Surgery Additional Past Surgical History / Comment(s): bilat shoulder surgey Past Psychological History: No Psychological Hx Reported Smoking Status: Never smoker Past Alcohol Use History: None Reported Past Drug Use History: None Reported - Past Family History Mother Family Medical History: Myocardial Infarction (NH) Father Family Medical History: CVA/TIA General Exam Limitations: no limitations General appearance: alert, in no apparent distress Head exam: Present: atraumatic, normocephalic, normal inspection Eye exam: Present: normal appearance, PERRL, EOMI. Absent: scleral icterus, conjunctival injection, periorbital swelling ENT exam: Present: normal exam, mucous membranes moist Neck exam: Present: normal inspection. Absent: tenderness, meningismus, lymphadenopathy Respiratory exam: Present: normal lung sounds bilaterally. Absent: respiratory distress, wheezes, rales, rhonchi, stridor Cardiovascular Exam: Present: regular rate, normal rhythm, normal heart sounds. Absent: systolic murmur, diastolic murmur, rubs, gallop, clicks GI/Abdominal exam: Present: soft, normal bowel sounds. Absent: distended, tenderness, guarding, rebound, rigid Extremities exam: Present: normal inspection, full ROM, normal capillary refill. Absent: tenderness, pedal edema, joint swelling, calf tenderness Back exam: Present: normal inspection Neurological exam: Present: alert, oriented X3, CN II-XII intact Psychiatric exam: Present: normal affect, normal mood Skin exam: Present: warm, dry, intact, normal color. Absent: rash Course Vital Signs 10/25/24 10/25/24 10/25/24 16:10 20:04 21:07 Temperature 98.1 F Pulse Rate 98 88 87 Respiratory 18 18 18 Rate Blood Pressure 157/75 138/73 142/74 O2 Sat by Pulse 97 97 97 Oximetry - Reevaluation(s) Reevaluation #1: 10/25/24 16:43 Medical records reviewed Reevaluation #2: 10/25/24 19:53 Patient still has back pain chest pain here in the ER no abdominal tenderness noted Reevaluation #3: 10/25/24 19:53 Patient informed of results questions answered Reevaluation #4: Was pt. sent in by a medical professional or institution (PANKAJ [place], MENTAL HEALTH ADVANCED PRACTICE NURSE, urgent care, hospital, or intermediate...) When possible be specific @ -no Did you speak to anyone other than the patient for history (EMS, parent, family, police, friend...)? What history was obtained from this source @ -no Did you review nursing and triage notes (agree or disagree)? Why? @ -agree Are old charts reviewed (outside hosp., previous admission, EMS record, old EKG, old radiological studies, urgent care reports/EKG's, intermediate records)? Report findings @ -yes Differential Diagnosis (chest pain, altered mental status, abdominal pain women, abdominal pain men, vaginal bleeding, weakness, fever, dyspnea, syncope, headache, dizziness, GI bleed, back pain, seizure, CVA, palpatations, mental health, musculoskeletal)? @ -prior EKG interpreted by me (3pts min.). @ -yes X-rays interpreted by me (1pt min.). @ -no CT interpreted by me (1pt min.). @ -yes has positive acute cholecystitis U/S interpreted by me (1pt. min.). @ -yes positive acute cholecystitis What testing was considered but not performed or refused? (CT, X-rays, U/S, labs)? Why? @ -none What meds were considered but not given or refused? Why? @ -none Did you discuss the management of the patient with other professionals (professionals i.e. PANKAJ [facility], MENTAL HEALTH ADVANCED PRACTICE NURSE, lab, RT, psych nurse, school social worker, cnc technician, te acher, operations officer, director of casework department)? Give summary @ -no Was smoking cessation discussed for >3mins.? @ -no Was critical care preformed (if so, how long)? @ -no Were there social determinants of health that impacted care today? How? (Homelessness, low income, unemployed, alcoholism, drug addiction, transportation, low edu. Level, literacy, decrease access to med. care, senior living, rehab)? @ -none Was there de-escalation of care discussed even if they declined (Discuss DNR or withdrawal of care, Hospice)? DNR status @ -no What co-morbidities impacted this encounter? (DM, HTN, Smoking, COPD, CAD, Cancer, CVA, ARF, Chemo, Hep., AIDS, mental health diagnosis, sleep apnea, morbid obesity)? @ -none Was patient admitted / discharged? Hospital course, mention meds given and route, prescriptions, significant lab abnormalities, going to OR and other pertinent info. @ - 84 female be admitted for chest pain observation in the setting of ACS history of ACS and stent, patient also having some abdominal pain and back pain and suspicion for cholecystitis Admitted Undiagnosed new problem with uncertain prognosis? @ -no Drug Therapy requiring intensive monitoring for toxicity (Heparin, Nitro, Insu sruthi, Cardizem)? @ -no Were any procedures done? @ -no Diagnosis/symptom? @ -Chest pain acute cholecystitis Acute, or Chronic, or Acute on Chronic? @ -Acute Uncomplicated (without systemic symptoms) or Complicated (systemic symptoms)? @ -Complicated Side effects of treatment? @ -no Exacerbation, Progression, or Severe Exacerbation? @ -exacerbation Poses a threat to life or bodily function? How? (Chest pain, [place], NH, pneumonia, PE, COPD, DKA, ARF, appy, cholecystitis, CVA, Diverticulitis, Homicidal, Suicidal, threat to staff... and all critical care pts) @ -yes extremes of age Reevaluation #5: Differential Chest Pain: Stable Angina, Unstable Angina, STEMI, NSTEMI Aortic Dissection, Pneumothorax, Musculoskeletal, Esophageal Spasm GERD, Cholecystitis, Pancreatitis, Zoster, this is not meant to be an all-inclusive list. Differential Back Pain: Strain, zoster, cauda equina syndrome, epidural abscess, vertebral osteomyelitis, discitis, fracture, subluxation, disc herniation, DJD, spinal stenosis, dissection, AAA, pancreatitis, peptic ulcer disease, pyelonephritis, kidney stone, this is not meant to be an all-inclusive list. - Consultations Consultation #1: Spoke with Dr. Monroe agrees to admit this patient Chest Pain MDM - MDM 84 female be admitted for chest pain observation in the setting of ACS history of ACS and stent, patient also having some abdominal pain and back pain and suspicion for cholecystitis Disposition Clinical Impression: Hypomagnesemia, Chest pain, Abdominal pain, Back pain, Cholecystitis Disposition: ADMITTED IP TO THIS HOSP Is patient prescribed a controlled substance at d/c from ED?: No Time of Disposition: 20:00
[2024-10-25] MEDS: SODIUM CHLORIDE 0.9% 500 ML 500 ML IV STA (16:55)
[2024-10-25] MEDS: ONDANSETRON 4 MG/2 ML VIAL IVP STA (16:56)
[2024-10-25] MEDS: MORPHINE SULFATE 4 MG/ML SYRINGE IV STA (16:58)
--- NOTE | 2024-10-25 17:14 | XR ---
EXAMINATION TYPE: XR chest 2V DATE OF EXAM: 10/25/2024 5:09 PM COMPARISON: Prior chest radiograph 01/30/2020. CLINICAL INDICATION: Female, 84 years old with history of Chest Pain; [facility] TECHNIQUE: XR chest 2V Frontal and lateral views of the chest. FINDINGS: Lungs/Pleura: There is no evidence of pleural effusion, focal consolidation, or pneumothorax. Pulmonary vascularity: Unremarkable. Heart/mediastinum: Cardiomediastinal silhouette is unremarkable. Musculoskeletal: No acute osseous pathology. Old left-sided bilateral fracture deformities. Other findings: None IMPRESSION: No acute cardiopulmonary disease/process. [facility], , 10/25/2024 5:12 PM
[2024-10-25 17:15] LABS: Basophils # (A) 0.03 10*3/uL (0.00-0.10); Basophils % (A) 0.3 %; Eosinophils # (A) 0.06 10*3/uL (0.04-0.35); Eosinophils % (A) 0.6 %; HCT 36.1 % (37.2-46.3); HGB 12.2 g/dL (12.0-15.0); Lymphocytes # (A) 1.09 10*3/uL (0.90-5.00); Lymphocytes % (A) 10.2 %; MCH 30.5 pg (27.0-32.0); MCHC 33.8 g/dL (32.0-37.0); MCV 90.3 fL (80.0-97.0); Mean Platelet Volume 10.8 fL (9.5-12.2); Monocytes # (A) 0.87 10*3/uL (0.20-1.00); Monocytes % (A) 8.2 %; Neutrophils # (A) 8.58 10*3/uL (1.80-7.70); Neutrophils % (A) 80.4 %; Platelet Count 208 10*3/uL (140-440); RDW 13.5 % (11.5-14.5); WBC 10.66 10*3/uL (4.50-10.00)
[2024-10-25 17:27] LABS: ALT 18 U/L (4-34); AST 23 U/L (14-36); African American GFR (CKD) 71 (>60 ml/min/1.73 sqM); Albumin 4.2 g/dL (3.5-5.0); Alkaline Phosphatase 85 U/L (38-126); Anion Gap 10 mmol/L; Blood Urea Nitrogen 36 mg/dL (7-17); Carbon Dioxide 27 mmol/L (22-30); Chloride 98 mmol/L (98-107); Glucose 135 mg/dL (74-99); Lipase 87 U/L (23-300); Magnesium 1.5 mg/dL (1.6-2.3); Non-African American GFR(CKD) 62 (>60 ml/min/1.73 sqM); Sodium 135 mmol/L (137-145); Total Bilirubin 0.5 mg/dL (0.2-1.3); Total Protein 7.2 g/dL (6.3-8.2)
[2024-10-25 17:36] LABS: INR 0.9 (<1.2); NT-Pro-B-Type Natriuretic Pept 493 pg/mL; Partial Thromboplastin Time 22.1 sec (22.0-30.0); Prothrombin Time 10.3 sec (10.0-12.5)
[2024-10-25] MEDS: MAGNESIUM OXIDE 400 MG TAB PO STA ×2 (18:04→18:05)
--- NOTE | 2024-10-25 18:16 | CT ---
EXAMINATION TYPE: CT abdomen pelvis w con DATE OF EXAM: 10/25/2024 6:05 PM COMPARISON: None. CLINICAL INDICATION: Female, 84 years old with history of pain; pain TECHNIQUE: Axial CT abdomen pelvis w con;Sagittal and coronal reformats were created on a separate w orkstation. Contrast used:100 mL of Isovue 370 with IV Contrast, (none if empty) Oral contrast used: without Oral Contrast (none if empty) CT DLP: 681 mGycm, Automated exposure control for dose reduction was used. FINDINGS: LOWER CHEST: Unremarkable ABDOMEN LIVER: Unremarkable GALLBLADDER AND BILE DUCTS: Distended gallbladder with cholelithiasis and mild gallbladder wall thick ening/edema. No significant acute pericholecystic fluid. Mild dilatation of the intrahepatic bile idalmis ts and CBD is within normal limits given patient's age. PANCREAS: Unremarkable. SPLEEN: Unremarkable. ADRENAL GLANDS: Unremarkable. KIDNEYS AND URETERS: No evidence of hydronephrosis or renal calculus. The ureters are unremarkable. PELVIS BLADDER: No evidence for wall thickening or mass given limitations of exam. REPRODUCTIVE: The uterus is surgically absent. ABDOMEN & PELVIS STOMACH AND BOWEL: Stomach and duodenum are unremarkable. Moderate diffuse colonic stool burden. Scat tered clonic diverticula without acute diverticulitis. No evidence of bowel obstruction. PERITONEUM/RETROPERITONEUM: No evidence of pneumoperitoneum or free fluid. VASCULATURE: No evidence of aortic aneurysm. MUSCULOSKELETAL: Age-indeterminate likely moderate chronic compression deformity of the L5 vertebral body. Left hip arthroplasty. Osseous structures appear demineralized. LYMPH NODES: No gross evidence for lymphadenopathy. SOFT TISSUE/ABDOMINAL WALL: Unremarkable IMPRESSION: 1. Distended gallbladder with cholelithiasis and mild gallbladder wall thickening/edema. Findings ar e suggestive of acute cholecystitis in the appropriate clinical setting. Recommend further evaluation with nuclear medicine HIDA scan if clinically warranted. 2. Additional nonacute findings as above. [facility], , 10/25/2024 6:13 PM
--- NOTE | 2024-10-25 18:19 | CT ---
EXAMINATION TYPE: CT angio chest DATE OF EXAM: 10/25/2024 6:04 PM COMPARISON: None. CLINICAL INDICATION: Female, 84 years old with history of PE; pain TECHNIQUE/CONTRAST: CTA scan of the thorax is performed with IV Contrast, patient injected with 100 mL of Isovue 370, MIP images are created and reviewed these are created on a separate workstation.. CT DLP: 206.7 mGycm, Automated exposure control for dose reduction was used. FINDINGS: Pulmonary Artery: There is no evidence for a filling defect within the pulmonary vasculature to sugge st acute pulmonary embolism. The pulmonary artery is of normal size. Lungs/Pleura: No evidence of focal consolidation, pleural effusion or pneumothorax. Lower lobe linear scarring/atelectasis. Airway: Large airways are patent. Heart: Heart is within normal limits for size. Coronary artery calcifications. Vasculature: No evidence of aortic aneurysm. Mediastinum: No gross evidence of adenopathy. Musculoskeletal: Severe kyphotic curvature of the thoracic spine. Severe age-indeterminate but likely chronic compression deformity of the T5 vertebral body, with mild associated retropulsion. Moderate compression deformity of the T6 vertebral body. Osseous structures appear demineralized. Multilevel t horacic spine degenerative changes. Soft Tissues/lymph nodes: Unremarkable. Lower neck: No significant findings. Upper Abdomen: No significant findings. IMPRESSION: 1. No evidence of acute pulmonary embolism or acute pulmonary pathology. 2. Linear scarring/atelectasis in the lower lobes. 3. Coronary artery calcifications. 4. Age-indeterminate possible chronic severe compression deformity of the T5 vertebral body. Conside r correlation with any outside imaging if available. [facility], , 10/25/2024 6:17 PM
--- NOTE | 2024-10-25 19:07 | US ---
EXAMINATION TYPE: US gallbladder DATE OF EXAM: 10/25/2024 COMPARISON: CT 10/25/2024 CLINICAL INDICATION: Female, 84 years old with history of pain; Chest and back pain, nausea, dizzines s. Patient denies any prior abdominal history TECHNIQUE: Grayscale and color Doppler imaging of the right upper quadrant was performed. FINDINGS: EXAM MEASUREMENTS: Liver Length: 12.3 cm Gallbladder Wall: 0.2 cm CBD: 0.2 cm Right Kidney: 8.3 x 4.3 x 3.6 cm PUBLIC WELFARE WORKER NOTES: Pancreas: wnl Liver: wnl Gallbladder: Multiple, mobile, echogenic foci seen within. GB = 11.0 x 4.5 x 5.7 cm; Pericholecystic fluid seen Evidence for sonographic Cano's sign: No CBD: wnl Right Kidney: wnl IMPRESSION: Distended gallbladder lumen with cholelithiasis, gallbladder wall thickening and trace adjacent peric holecystic fluid. Solutions Development Analyst reports a negative Cano's sign. Findings are equivocal for acute cholecystitis and the need for further evaluation with nuclear medicine HIDA scan should be determin ed clinically. [facility], , 10/25/2024 7:04 PM
[2024-10-25] MEDS: AMPICILLIN-SULBACTAM 3 GM in SODIUM CHLORIDE 0.9% 100 ML IVPB STA (19:38)
[2024-10-25] MEDS ORDERED: NALOXONE 0.4 MG/ML 1 ML VIAL IV PRN (19:51)
[2024-10-25] MEDS: SODIUM CHLORIDE 0.9% 1,000 ML IV SCH (22:35)
[2024-10-25] MEDS: PANTOPRAZOLE 40 MG/10 ML VIAL IV SCH (22:37)
[2024-10-25] MEDS: LORATADINE 10 MG TAB PO SCH (22:43)
[2024-10-25] MEDS: METOPROLOL TARTRATE 25 MG TAB PO SCH (22:48)
[2024-10-25] MEDS: ATORVASTATIN 40 MG TAB PO SCH (22:48)
[2024-10-26 08:11] LABS: Basophils # (A) 0.03 X 10*3/uL (0.00-0.10); Basophils % (A) 0.3 %; Eosinophils # (A) 0.05 X 10*3/uL (0.04-0.35); Eosinophils % (A) 0.5 %; HCT 32.3 % (37.2-46.3); HGB 10.4 g/dL (12.0-15.0); Lymphocytes # (A) 1.28 X 10*3/uL (0.90-5.00); Lymphocytes % (A) 13.7 %; MCH 30.1 pg (27.0-32.0); MCHC 32.2 g/dL (32.0-37.0); MCV 93.6 FL (80.0-97.0); Mean Platelet Volume 11.4 FL (9.5-12.2); Monocytes # (A) 1.07 X 10*3/uL (0.20-1.00); Monocytes % (A) 11.5 %; NRBC Per 100 WBC 0 X 10*3/uL (0.00-0.01); Neutrophils # (A) 6.89 X 10*3/uL (1.80-7.70); Neutrophils % (A) 73.8 %; Platelet Count 186 X 10*3/uL (140-440); RBC 3.45 X 10*6/uL (4.10-5.20); RDW 13.7 % (11.5-14.5); WBC 9.34 X 10*3/uL (4.50-10.00)
[2024-10-26 08:18] LABS: ALT 16 U/L (8-44); AST 17 U/L (13-35); Albumin 3.8 g/dL (3.8-4.9); Albumin/Globulin Ratio 1.65 Ratio (1.60-3.17); Alkaline Phosphatase 66 U/L (41-126); Blood Urea Nitrogen 29.6 mg/dL (9.0-27.0); Calcium 8.9 mg/dL (8.7-10.3); Carbon Dioxide 24.4 mmol/L (21.6-31.8); Chloride 103 mmol/L (96-109); Globulin 2.3 g/dL (1.6-3.3); Glucose 107 mg/dL (70-110); Lipase 25 U/L (14-63); Phosphorus 3.5 mg/dL (2.4-5.1); Potassium 4.4 mmol/L (3.5-5.5); Sodium 137 mmol/L (135-145); Total Bilirubin 0.5 mg/dL (0.3-1.2); Total Protein 6.1 g/dL (6.2-8.2)
[2024-10-26] MEDS: PIPERACILLIN-TAZOBACTAM 3.375 GM in SODIUM CHLORIDE 0.9% 100 ML IVPB SCH (09:27)
[2024-10-26] MEDS: METOPROLOL TARTRATE 50 MG TAB PO SCH (09:35)
[2024-10-26] MEDS: CALCIUM CARBONATE 500 MG CHEWABLE PO SCH (09:35)
[2024-10-26] MEDS: ASPIRIN 81 MG PO SCH (09:35)
[2024-10-26] MEDS: lisinopriL 20 MG TAB PO SCH (09:35)
[2024-10-26] MEDS: amLODIPine 5 MG TAB PO SCH (09:35)
[2024-10-26] MEDS: CHOLECALCIFEROL 25 MCG (1000 IU) TABLET PO SCH (09:36)
[2024-10-26] MEDS: NITROFURANTOIN MONOHYD/M-CRYST 100 MG CAP PO SCH (09:36)
[2024-10-26] MEDS: LIDOCAINE 4% PATCH TOPICAL SCH (09:54)
--- NOTE | 2024-10-26 11:42 | P.CRDCN ---
History of Present Illness History of present illness: HISTORY OF PRESENT ILLNESS: This is a 84-year-old female with a past medical history significant for coronary artery disease with previous stenting, hypertension, hyperlipidemia, and arthritis. Patient follows in the office with Dr. Redd. We have been asked to see the patient in consultation for chest pain. Patient examined at the bedside. Patient presented to the hospital with a chief complaint of chest discomfort and pain in the middle of her back. She states that she has arthr itis and usually hurts all over. However this pain was different. This morning she continues to report pain in the middle of her back. She denies shortness of breath. Denies fever or cough. General surgery has been consulted to evaluate for gallbladder disease. DIAGNOSTICS: - EKG reveals sinus mechanism with no signs of acute ischemia. - Chest xray negative for acute process. - Laboratory data: WBC 9.34. Hemoglobin 10.4. Platelet count 186. D-dimer 6.43. Sodium 137. Potassium 4.4. BUN 29. Creatinine 0.8. Magnesium 1.5. Troponin negative x 2. proBNP 493. - Current home cardiac medications include metoprolol tartrate 50 mg in the morning and 25 mg at night, lisinopril 20 mg daily, amlodipine 5 mg daily, Lipitor 40 mg at night. - Most recent echocardiogram obtained in February 2024 revealed normal LV size, moderate mitral and aortic regurgitation, moderate pulm hypertension - Cardiac catheterization history: 2019 with stenting of the mid LAD - Patient underwent Lexiscan stress test in February 2024 which was negative for ischemia REVIEW OF SYSTEMS: At the time of my exam: CONSTITUTIONAL: Denies fever or chills. HEENT: Denies blurred vision, vision changes, or eye pain. Denies hemoptysis CARDIOVASCULAR: Denies chest pain. Denies orthopnea. Denies PND. Denies palpitat ions RESPIRATORY: Denies shortness of breath. GASTROINTESTINAL: Denies abdominal pain. Denies nausea or vomiting. HEMATOLOGIC: Denies bleeding disorders. GENITOURINARY: Denies any blood in urine. SKIN: Denies pruitis. Denies rash. PHYSICAL EXAM: VITAL SIGNS: Reviewed. GENERAL: Well-developed in no acute distress. HEENT: Head is normocephalic. Pupils are equal, round. Sclerae anicteric. Mucous membranes of the mouth are moist. Neck supple. No JVD or thyromegaly LUNGS: Respirations even and unlabored. Lungs essentially clear to auscultation bilaterally. HEART: Regular rate and rhythm. S1 and S2 heard. Systolic murmur noted ABDOMEN: Soft. Nondistended. Nontender. EXTREMITIES: Normal range of motion. No clubbing or cyanosis. Peripheral pulses intact. No lower extremity edema NEUROLOGIC: Awake and alert. Oriented x 3. ASSESSMENT: Chest pain, troponin negative x 2, acute coronary syndrome ruled out Possible acute cholecystitis Coronary artery disease with previous stenting Hypertension Hyperlipidemia History of arthritis PLAN: An acute coronary event has been ruled out Obtain 2D echo to assess cardiac structure and function Resume home cardiac medications as listed above Add aspirin 81 mg daily Patient is tentatively scheduled for cholecystectomy tomorrow with general s urgery. Patient is at moderate risk to proceed from a cardiac standpoint however there are no absolute contraindications. Further recommendations pending patient course Nurse practitioner note has been reviewed by physician. Signing provider agrees with the documented findings, assessment, and plan of care documented by [employer] as a scribe. Past Medical History Past Medical History: Hypertension Additional Past Medical History / Comment(s): Neuropathy, Arthritis History of Any Multi-Drug Resistant Organisms: None Reported Past Surgical History: Hysterectomy, Joint Replacement, Orthopedic Surgery Additional Past Surgical History / Comment(s): bilat shoulder surgery, left total hip replacement 2022 at [facility] Past Psychological History: No Psychological Hx Reported Smoking Status: Never smoker Past Alcohol Use History: None Reported Past Drug Use History: None Reported - Past Family History Mother Family Medical History: Myocardial Infarction ([place]) Father Family Medical History: CVA/TIA Medications and Allergies Home Medications Medication Instructions Recorded Confirmed Type Calcium Carbonate [Calcium] 600 mg PO DAILY 01/30/20 10/25/24 History Etanercept [Enbrel Sureclick] 50 mg SQ TH 01/30/20 10/25/24 History Fexofenadine HCl [Jackeline Allergy] 90 mg PO BID 01/30/20 10/25/24 History Atorvastatin [Lipitor] 40 mg PO HS #30 tab 02/02/20 10/25/24 Rx Nitroglycerin Sl Tabs [Nitrostat] 0.4 mg SUBLINGUAL Q5M PRN #20 tab 02/02/20 10/25/24 Rx amLODIPine [Norvasc] 5 mg PO DAILY #30 tab 02/02/20 10/25/24 Rx lisinopriL [Zestril] 20 mg PO DAILY #30 tab 02/02/20 10/25/24 Rx Cholecalciferol [Vitamin D3 (25 50 mcg PO DAILY 10/25/24 10/25/24 History Mcg = 1000 Iu)] Metoprolol Tartrate [Lopressor] 25 mg PO HS 10/25/24 10/25/24 History Metoprolol Tartrate [Lopressor] 50 mg PO DAILY 10/25/24 10/25/24 History Nitrofurantoin Monohyd/M-Cryst 100 mg PO DAILY 10/25/24 10/25/24 History [Macrobid] Allergies Allergy/AdvReac Type Severity Reaction Status Date / Time Sulfa (Sulfonamide Allergy Rash/Hives Verified 10/25/24 18:34 Antibiotics) Physical Exam Vitals: Vital Signs Temp Pulse Pulse Resp BP BP BP 10/26/24 06:50 98.1 F 82 16 111/50 10/26/24 01:15 98.6 F 74 17 123/63 10/25/24 22:35 98.4 F 90 19 175/50 10/25/24 21:07 87 18 142/74 10/25/24 20:04 88 18 138/73 10/25/24 16:10 98.1 F 98 18 157/75 Pulse Ox 10/26/24 06:50 97 10/26/24 01:15 96 10/25/24 22:35 97 10/25/24 21:07 97 10/25/24 20:04 97 10/25/24 16:10 97 Intake and Output 10/25/24 10/26/24 10/26/24 22:59 06:59 14:59 Other: Voiding Method Toilet Toilet Diaper Diaper # Voids 2 2 Weight 55.338 kg Results 10/26/24 03:22 10/26/24 03:22 Cardiac Enzymes 10/25/24 10/25/24 10/26/24 Range/Units 16:53 16:53 03:22 AST 23 17 (14-36) U/L Troponin I <0.012 (0.000-0.034) ng/mL 10/26/24 Range/Units 09:31 AST (14-36) U/L Troponin I <0.012 (0.000-0.034) ng/mL Coagulation 10/25/24 Range/Units 16:53 PT 10.3 (10.0-12.5) sec APTT 22.1 (22.0-30.0) sec CBC 10/25/24 10/26/24 Range/Units 16:53 03:22 WBC 10.66 H 9.34 (4.50-10.00) 10*3/uL RBC 4.00 L 3.45 L (4.10-5.20) 10*6/uL Hgb 12.2 10.4 L (12.0-15.0) g/dL Hct 36.1 L 32.3 L (37.2-46.3) % Plt Count 208 186 (140-440) 10*3/uL Comprehensive Metabolic Panel 10/25/24 10/26/24 Range/Units 16:53 03:22 Sodium 135 L 137 (137-145) mmol/L Potassium 4.0 4.4 (3.5-5.1) mmol/L Chloride 98 103 (98-107) mmol/L Carbon Dioxide 27 24.4 (22-30) mmol/L BUN 36 H 29.6 H (7-17) mg/dL Creatinine 0.88 0.8 (0.52-1.04) mg/dL Glucose 135 H 107 (74-99) mg/dL Calcium 10.0 8.9 (8.4-10.2) mg/dL AST 23 17 (14-36) U/L ALT 18 16 (4-34) U/L Alkaline Phosphatase 85 66 (38-126) U/L Total Protein 7.2 6.1 L (6.3-8.2) g/dL Albumin 4.2 3.8 (3.5-5.0) g/dL Current Medications Generic Name Dose Route Start Last Admin Trade Name Freq PRN Reason Stop Dose Admin Amlodipine Besylate 5 mg 10/26/24 09:00 10/26/24 09:35 Amlodipine 5 Mg Tab PO 5 mg DAILY MARCUS Administration Aspirin 81 mg 10/26/24 09:15 10/26/24 09:35 Aspirin 81 Mg PO 81 mg DAILY MARCUS Administration Atorvastatin Calcium 40 mg 10/25/24 22:30 10/25/24 22:48 Atorvastatin 40 Mg Tab PO 40 mg HS MARCUS Administration Calcium Carbonate/Glycine 500 mg 10/26/24 09:00 10/26/24 09:35 Calcium Carbonate 500 Mg Chewable PO 500 mg DAILY [facility] Administration Cholecalciferol 50 mcg 10/26/24 09:00 10/26/24 09:36 Cholecalciferol 25 Mcg (1000 Iu) Tablet PO 50 mcg DAILY [facility] Administration Hydromorphone HCl 1 mg 10/25/24 19:51 Hydromorphone 1 Mg/Ml 1 Ml Syringe IVP Q3HR PRN Severe Pain (Scale 7 to 10) Sodium Chloride 1,000 mls @ 75 mls/hr 10/25/24 20:00 10/26/24 09:27 Saline 0.9% IV 75 mls/hr .[id number] MARCUS Administration Piperacillin Sod/Tazobactam 100 mls @ 25 mls/hr 10/26/24 09:00 10/26/24 09:27 Sod 3.375 gm/ Sodium Chloride IVPB 25 mls/hr Q8HR MARCUS Administration Protocol Lidocaine 1 patch 10/26/24 09:30 10/26/24 09:54 Lidocaine 4% Patch TOPICAL 1 patch DAILY [facility] Administration Protocol Lisinopril 20 mg 10/26/24 09:00 10/26/24 09:35 Lisinopril 20 Mg Tab PO 20 mg DAILY [facility] Administration Loratadine 10 mg 10/25/24 09:00 10/26/24 09:36 Loratadine 10 Mg Tab PO 10 mg DAILY [facility] Administration Metoprolol Tartrate 25 mg 10/25/24 22:45 10/25/24 22:48 Metoprolol Tartrate 25 Mg Tab PO 25 mg HS [facility] Administration Metoprolol Tartrate 50 mg 10/26/24 09:00 10/26/24 09:35 Metoprolol Tartrate 50 Mg Tab PO 50 mg DAILY [facility] Administration Naloxone HCl 0.2 mg 10/25/24 19:51 Naloxone 0.4 Mg/Ml 1 Ml Vial IV Q2M PRN Opioid Reversal Nitrofurantoin Macrocrystals 100 mg 10/26/24 09:00 10/26/24 09:36 Nitrofurantoin Monohyd/M-Cryst 100 Mg Cap PO 100 mg DAILY [facility] Administration Protocol Enbrel (Etanercept) 1 each 10/29/24 09:00 Sureclick 50 Mg/Ml SQ Pen Injector [facility] Ondansetron HCl 4 mg 10/25/24 19:51 Ondansetron 4 Mg/2 Ml Vial IVP Q8HR PRN Nausea And Vomiting Pantoprazole Sodium 40 mg 10/25/24 20:00 10/26/24 09:43 Pantoprazole 40 Mg/10 Ml Vial IV 40 mg DAILY MARCUS Administration Intake and Output 10/25/24 10/26/24 10/26/24 22:59 06:59 14:59 Other: Voiding Method Toilet Toilet Diaper Diaper # Voids 2 2 Weight 55.338 kg 10/26/24 03:22 10/26/24 03:22
--- NOTE | 2024-10-26 14:44 | P.GSCN ---
History of Present Illness Consult date: 10/26/24 History of present illness: CHIEF COMPLAINT: Back pain and chest pain HISTORY OF PRESENT ILLNESS: This is a 84-year-old female who presented to the hospital with complaints of back pain and chest pain. Patient reports that she had pain mostly on the left side of the back to the lower mid back. Also complained of chest pain that started on Saturday. Patient initially thought her pain was related to her arthritis. She does have known history of rheumatoid arthritis. But symptoms continued to progress and were slightly different than her usual arthritis pain. On evaluation patient had a CT scan abdomen and pelvis that reported a distended gallbladder gallstones with gallbladder wall thickening and suspected acute cholecystitis. Similar findings were noted on gallbladder ultrasound. Surgical service was consulted for cholecystitis. Patient was seen evaluated by cardiology and acute coronary syndrome was ruled out. Patient is tender on the right side of the abdomen during exam. She denies any nausea or vomiting. Denies any change in appetite. Denies any fever chills or sweats. She does report issues with constipation and last bowel movement was on Saturday. Patient has been placed on antibiotics for cholecystitis. Patient with a known history of myocardial infarction with coronary artery disease and cardiac stent about 3 years ago. She is not on any anticoagulation. Abdominal surgical history includes a hysterectomy. PAST MEDICAL HISTORY: See below PAST SURGICAL HISTORY: See below MEDICATIONS: See below ALLERGIES: See below SOCIAL HISTORY: No illicit drug use. REVIEW OF SYSTEMS: CONSTITUTIONAL: Denies fever or chills. HEENT: Denies blurred vision, vision changes, or eye pain. Denies hemoptysis CARDIOVASCULAR: Denies chest pain or pressure. RESPIRATORY: No shortness of breath. GASTROINTESTINAL: See HPI for pertinent findings HEMATOLOGIC: Denies bleeding disorders. GENITOURINARY: Denies any blood in urine or increased urinary frequency. SKIN: Denies pruitis. Denies rash. PHYSICAL EXAM: VITAL SIGNS: Reviewed GENERAL: Well-developed in no acute distress. HEENT: No sclera icterus. Extraocular movements grossly intact. Moist buccal mucosa. Head is atraumatic, normocephalic. No nasal drainage. ABDOMEN: Soft. Nondistended. Tenderness palpation right upper quadrant right mid abdomen and right lower abdomen NEUROLOGIC: Alert and oriented. Cranial nerves II through XII grossly intact. LABORATORY DATA: WBC 10.6 down to 9.34 Hgb 10.4 platelets 186 Sodium is 137 potassium is 4.4 creatinine 0.8 Troponins negative x 2 LFTs normal lipase 25 IMAGING: CT scan abdomen pelvis reports distended gallbladder with cholelithiasis and mild gallbladder wall thickening/edema. Findings are suggestive of acute cholecystitis. Gallbladder ultrasound reports distended gallbladder with cholelithiasis, gallbl adder wall thickening and trace pericholecystic fluid. Findings are equivocal of acute cholecystitis. Chest CTA no evidence of PE. Age indeterminant possible chronic severe compression deformity of T5 ASSESSMENT: 1. Acute cholecystitis PLAN: - Patient scheduled for robotic cholecystectomy tomorrow with Dr. Charisse Schmid for clear liquid diet today - N.p.o. after midnight - Patient is at moderate risk with no absolute contraindication for surgery per cardiology service Physician Sumac Tanner note has been reviewed by physician. Signing provider agrees with the documented findings, assessment, and plan of care. Attestation Patient seen and examined at bedside. Presented with chief complaint of back pain and chest pain. On exam, she is found to have abdominal pain in the right upper quadrant. Imaging reviewed with finding of distended gallbladder with cholelithiasis, gallbladder wall thickening and pericholecystic fluid. Clinically, patient does appear to have acute cholecystitis. Patient has been started on IV antibiotics. Sharmaine for diet today with n.p.o. after midnight. Pl an for robotic cholecystectomy tomorrow. Aracelis Olea DO Past Medical History Past Medical History: Hypertension Additional Past Medical History / Comment(s): Neuropathy, Arthritis History of Any Multi-Drug Resistant Organisms: None Reported Past Surgical History: Hysterectomy, Joint Replacement, Orthopedic Surgery Additional Past Surgical History / Comment(s): bilat shoulder surgery, left total hip replacement 2022 at [facility] Past Psychological History: No Psychological Hx Reported Smoking Status: Never smoker Past Alcohol Use History: None Reported Past Drug Use History: None Reported - Past Family History Mother Family Medical History: Myocardial Infarction ([place]) Father Family Medical History: CVA/TIA Medications and Allergies Home Medications Medication Instructions Recorded Confirmed Type Calcium Carbonate [Calcium] 600 mg PO DAILY 01/30/20 10/25/24 History Etanercept [Enbrel Sureclick] 50 mg SQ TH 01/30/20 10/25/24 History Fexofenadine HCl [Jackeline Allergy] 90 mg PO BID 01/30/20 10/25/24 History Atorvastatin [Lipitor] 40 mg PO HS #30 tab 02/02/20 10/25/24 Rx Nitroglycerin Sl Tabs [Nitrostat] 0.4 mg SUBLINGUAL Q5M PRN #20 tab 02/02/20 10/25/24 Rx amLODIPine [Norvasc] 5 mg PO DAILY #30 tab 02/02/20 10/25/24 Rx lisinopriL [Zestril] 20 mg PO DAILY #30 tab 02/02/20 10/25/24 Rx Cholecalciferol [Vitamin D3 (25 50 mcg PO DAILY 10/25/24 10/25/24 History Mcg = 1000 Iu)] Metoprolol Tartrate [Lopressor] 25 mg PO HS 10/25/24 10/25/24 History Metoprolol Tartrate [Lopressor] 50 mg PO DAILY 10/25/24 10/25/24 History Nitrofurantoin Monohyd/M-Cryst 100 mg PO DAILY 10/25/24 10/25/24 History [Macrobid] Allergies Allergy/AdvReac Type Severity Reaction Status Date / Time Sulfa (Sulfonamide Allergy Rash/Hives Verified 10/25/24 18:34 Antibiotics) Surgical - Exam Osteopathic Statement: *. No significant issues noted on an osteopathic structural exam other than those noted in the History and Physical/Consult. Vital Signs Temp Pulse Resp BP Pulse Ox 98.1 F 98 18 157/75 97 10/25/24 16:10 10/25/24 16:10 10/25/24 16:10 10/25/24 16:10 10/25/24 16:10 Results - Labs 10/26/24 03:22 10/26/24 03:22 Abnormal Lab Results - Last 24 Hours (Table) 10/25/24 10/25/24 10/25/24 Range/Units 16:53 16:53 16:53 WBC 10.66 H (4.50-10.00) 10*3/uL RBC 4.00 L (4.10-5.20) 10*6/uL Hgb (12.0-15.0) g/dL Hct 36.1 L (37.2-46.3) % Neutrophils # 8.58 H (1.80-7.70) 10*3/uL Monocytes # (0.20-1.00) X 10*3/uL D-Dimer 6.43 H (<0.60) mg/L FEU Sodium 135 L (137-145) mmol/L BUN 36 H (7-17) mg/dL BUN/Creatinine Ratio (12.00-20.00) Ratio Glucose 135 H (74-99) mg/dL Magnesium 1.5 L (1.6-2.3) mg/dL Total Protein (6.2-8.2) g/dL 10/26/24 10/26/24 Range/Units 03:22 03:22 WBC (4.50-10.00) 10*3/uL RBC 3.45 L (4.10-5.20) 10*6/uL Hgb 10.4 L (12.0-15.0) g/dL Hct 32.3 L (37.2-46.3) % Neutrophils # (1.80-7.70) 10*3/uL Monocytes # 1.07 H (0.20-1.00) X 10*3/uL D-Dimer (<0.60) mg/L FEU Sodium (137-145) mmol/L BUN 29.6 H (7-17) mg/dL BUN/Creatinine Ratio 37.00 H (12.00-20.00) Ratio Glucose (74-99) mg/dL Magnesium (1.6-2.3) mg/dL Total Protein 6.1 L (6.2-8.2) g/dL Diabetes panel 10/25/24 10/26/24 Range/Units 16:53 03:22 Sodium 135 L 137 (137-145) mmol/L Potassium 4.0 4.4 (3.5-5.1) mmol/L Chloride 98 103 (98-107) mmol/L Carbon Dioxide 27 24.4 (22-30) mmol/L BUN 36 H 29.6 H (7-17) mg/dL Creatinine 0.88 0.8 (0.52-1.04) mg/dL Glucose 135 H 107 (74-99) mg/dL Calcium 10.0 8.9 (8.4-10.2) mg/dL AST 23 17 (14-36) U/L ALT 18 16 (4-34) U/L Alkaline Phosphatase 85 66 (38-126) U/L Total Protein 7.2 6.1 L (6.3-8.2) g/dL Albumin 4.2 3.8 (3.5-5.0) g/dL Calcium panel 10/25/24 10/26/24 Range/Units 16:53 03:22 Calcium 10.0 8.9 (8.4-10.2) mg/dL Phosphorus 3.5 (2.4-5.1) mg/dL Albumin 4.2 3.8 (3.5-5.0) g/dL Pituitary panel 10/25/24 10/26/24 Range/Units 16:53 03:22 Sodium 135 L 137 (137-145) mmol/L Potassium 4.0 4.4 (3.5-5.1) mmol/L Chloride 98 103 (98-107) mmol/L Carbon Dioxide 27 24.4 (22-30) mmol/L BUN 36 H 29.6 H (7-17) mg/dL Creatinine 0.88 0.8 (0.52-1.04) mg/dL Glucose 135 H 107 (74-99) mg/dL Calcium 10.0 8.9 (8.4-10.2) mg/dL Adrenal panel 10/25/24 10/26/24 Range/Units 16:53 03:22 Sodium 135 L 137 (137-145) mmol/L Potassium 4.0 4.4 (3.5-5.1) mmol/L Chloride 98 103 (98-107) mmol/L Carbon Dioxide 27 24.4 (22-30) mmol/L BUN 36 H 29.6 H (7-17) mg/dL Creatinine 0.88 0.8 (0.52-1.04) mg/dL Glucose 135 H 107 (74-99) mg/dL Calcium 10.0 8.9 (8.4-10.2) mg/dL Total Bilirubin 0.5 0.5 (0.2-1.3) mg/dL AST 23 17 (14-36) U/L ALT 18 16 (4-34) U/L Alkaline Phosphatase 85 66 (38-126) U/L Total Protein 7.2 6.1 L (6.3-8.2) g/dL Albumin 4.2 3.8 (3.5-5.0) g/dL
--- NOTE | 2024-10-26 18:09 | P.HPIM ---
History of Present Illness H&P Date: 10/26/24 Chief Complaint: Pain Very pleasant 84-year-old patient who follows with Dr. Dave Emerson. Chronic medical conditions include osteoarthritis in multiple joints and keeps flaring up in different places. Hypertension. [place] 3 years ago with a stent. Patient has a flare of pain yesterday. In the back and the front in the abdomen. Decided to come in. Multiple locations. No fever no chills. No cough. Review of systems: GEN.: None EYES: None HEENT: None NECK: None RESPIRATORY: None CARDIOVASCULAR: As above e GASTROINTESTINAL: None GENITOURINARY: None MUSCULOSKELETAL: [Pain at multiple sites LYMPHATICS: None HEMATOLOGICAL: None PSYCHIATRY: None NEUROLOGICAL: None Social history: Lives alone. No smoking or alcohol. Physical examination: VITAL SIGNS: 98.1, 82, 16, 111 x 50, 97% room air GENERAL: BMI 22.3, sitting edge of the bed, not in distress. EYES: Pupils equal. Conjunctiva akira l. HEENT: External appearance of nose and ears normal, oral cavity grossly normal. NECK: JVD not raised; masses not palpable. HEART: First and second heart sounds are normal; no edema. LUNGS: Respiratory rate normal; clear to auscultation. ABDOMEN: Soft, some upper abdominal tenderness r, liver spleen not palpable, no masses palpable. PSYCH: Alert and oriented x3; mood and affect akira l. MUSCULOSKELETAL:No Clubbing/cyanosis;muscles-grossly intact. Tenderness to multiple joint NEUROLOGICAL: Cranial nerves grossly intact; no facial asymmetry, power and sensation grossly intact. LYMPHATICS: No lymph nodes palpable in the axilla and neck INVESTIGATIONS, reviewed in the clinical context: October 26: White count 9.3 hemoglobin 10.4 platelets 186 potassium 4.4 BUN 20 Lucas 9.6 creatinine 0.8 AST 17 ALT 16 Troponin I less than 0.012 x 2. proBNP 493 October 25: White count 10.6 EKG tracing personally reviewed by me-normal sinus rhythm nonspecific, ST-T wave changes Chest x-ray film personally reviewed by me-nonspecific CT abdomen pelvis with contrast: Distended gallbladder with gallstones. Mild gallbladder wall thickening/edema. Chest CTA: Coronary artery calcification. Negative for PE Assessment plan: - Probable acute cholecystitis. Surgery consulted. IV Zosyn. - Hyperlipidemia Lipitor - Essential hypertension Lopressor, Norvasc, Zestril - Primary osteoarthritis multiple joints Pain medication as needed - CAD with stent about 3 years ago Aspirin. Lopressor. Care was discussed with the patient. Cardiology and surgery consulted. IV fluids. Past Medical History Past Medical History: Hypertension Additional Past Medical History / Comment(s): Neuropathy, Arthritis History of Any Multi-Drug Resistant Organisms: None Reported Past Surgical History: Hysterectomy, Joint Replacement, Orthopedic Surgery Additional Past Surgical History / Comment(s): bilat shoulder surgery, left total hip replacement [address] [facility] Past Psychological History: No Psychological Hx Reported Smoking Status: Never smoker Past Alcohol Use History: None Reported Past Drug Use History: None Reported - Past Family History Mother Family Medical History: Myocardial Infarction ([place]) Father Family Medical History: CVA/TIA Medications and Allergies Home Medications Medication Instructions Recorded Confirmed Type Calcium Carbonate [Calcium] 600 mg PO DAILY 01/30/20 10/25/24 History Etanercept [Enbrel Sureclick] 50 mg SQ TH 01/30/20 10/25/24 History Fexofenadine HCl [Jackeline Allergy] 90 mg PO BID 01/30/20 10/25/24 History Atorvastatin [Lipitor] 40 mg PO HS #30 tab 02/02/20 10/25/24 Rx Nitroglycerin Sl Tabs [Nitrostat] 0.4 mg SUBLINGUAL Q5M PRN #20 tab 02/02/20 10/25/24 Rx amLODIPine [Norvasc] 5 mg PO DAILY #30 tab 02/02/20 10/25/24 Rx lisinopriL [Zestril] 20 mg PO DAILY #30 tab 02/02/20 10/25/24 Rx Cholecalciferol [Vitamin D3 (25 50 mcg PO DAILY 10/25/24 10/25/24 History Mcg = 1000 Iu)] Metoprolol Tartrate [Lopressor] 25 mg PO HS 10/25/24 10/25/24 History Metoprolol Tartrate [Lopressor] 50 mg PO DAILY 10/25/24 10/25/24 History Nitrofurantoin Monohyd/M-Cryst 100 mg PO DAILY 10/25/24 10/25/24 History [Macrobid] Allergies Allergy/AdvReac Type Severity Reaction Status Date / Time Sulfa (Sulfonamide Allergy Rash/Hives Verified 10/25/24 18:34 Antibiotics) Physical Exam Vitals: Vital Signs Temp Pulse Pulse Resp BP BP BP 10/26/24 06:50 98.1 F 82 16 111/50 10/26/24 01:15 98.6 F 74 17 123/63 10/25/24 22:35 98.4 F 90 19 175/50 10/25/24 21:07 87 18 142/74 10/25/24 20:04 88 18 138/73 10/25/24 16:10 98.1 F 98 18 157/75 Pulse Ox 10/26/24 06:50 97 10/26/24 01:15 96 10/25/24 22:35 97 10/25/24 21:07 97 10/25/24 20:04 97 10/25/24 16:10 97 Intake and Output 10/25/24 10/26/24 10/26/24 22:59 06:59 14:59 Other: Voiding Method Toilet Toilet Diaper Diaper # Voids 2 2 Weight 55.338 kg Results CBC & Chem 7: 10/26/24 03:22 10/26/24 03:22 Labs: Abnormal Lab Results - Last 24 Hours (Table) 10/25/24 10/25/24 10/25/24 Range/Units 16:53 16:53 16:53 WBC 10.66 H (4.50-10.00) 10*3/uL RBC 4.00 L (4.10-5.20) 10*6/uL Hgb (12.0-15.0) g/dL Hct 36.1 L (37.2-46.3) % Neutrophils # 8.58 H (1.80-7.70) 10*3/uL Monocytes # (0.20-1.00) X 10*3/uL D-Dimer 6.43 H (<0.60) mg/L FEU Sodium 135 L (137-145) mmol/L BUN 36 H (7-17) mg/dL BUN/Creatinine Ratio (12.00-20.00) Ratio Glucose 135 H (74-99) mg/dL Magnesium 1.5 L (1.6-2.3) mg/dL Total Protein (6.2-8.2) g/dL 10/26/24 10/26/24 Range/Units 03:22 03:22 WBC (4.50-10.00) 10*3/uL RBC 3.45 L (4.10-5.20) 10*6/uL Hgb 10.4 L (12.0-15.0) g/dL Hct 32.3 L (37.2-46.3) % Neutrophils # (1.80-7.70) 10*3/uL Monocytes # 1.07 H (0.20-1.00) X 10*3/uL D-Dimer (<0.60) mg/L FEU Sodium (137-145) mmol/L BUN 29.6 H (7-17) mg/dL BUN/Creatinine Ratio 37.00 H (12.00-20.00) Ratio Glucose (74-99) mg/dL Magnesium (1.6-2.3) mg/dL Total Protein 6.1 L (6.2-8.2) g/dL Thrombosis Risk Factor Assmnt - Choose All That Apply Any of the Below Risk Factors Present?: No Other Risk Factors: Yes Each Risk Factor Represents 3 Points: Age 75 years or older Other congenital or acquired thrombophilia - If yes, enter type in comment: No Thrombosis Risk Factor Assessment Total Risk Factor Score: 3 Thrombosis Risk Factor Assessment Level: Moderate Risk
[2024-10-26] MEDS: HYDROmorphone 1 MG/ML 1 ML SYRINGE IVP PRN (23:23)
[2024-10-27 05:04] LABS: Basophils # (A) 0.02 10*3/uL (0.00-0.10); Basophils % (A) 0.3 %; Eosinophils # (A) 0.05 10*3/uL (0.04-0.35); Eosinophils % (A) 0.6 %; HCT 33.1 % (37.2-46.3); HGB 10.7 g/dL (12.0-15.0); Lymphocytes # (A) 0.74 10*3/uL (0.90-5.00); Lymphocytes % (A) 9.4 %; MCHC 32.3 g/dL (32.0-37.0); MCV 92.7 fL (80.0-97.0); Mean Platelet Volume 11.2 fL (9.5-12.2); Monocytes # (A) 0.67 10*3/uL (0.20-1.00); Monocytes % (A) 8.5 %; Neutrophils # (A) 6.33 10*3/uL (1.80-7.70); Neutrophils % (A) 80.8 %; Platelet Count 171 10*3/uL (140-440); RBC 3.57 10*6/uL (4.10-5.20); RDW 13.6 % (11.5-14.5); WBC 7.84 10*3/uL (4.50-10.00)
[2024-10-27 05:18] LABS: African American GFR (CKD) 86 (>60 ml/min/1.73 sqM); Anion Gap 10 mmol/L; Blood Urea Nitrogen 24 mg/dL (7-17); Calcium 9.3 mg/dL (8.4-10.2); Carbon Dioxide 21 mmol/L (22-30); Chloride 103 mmol/L (98-107); Glucose 104 mg/dL (74-99); Non-African American GFR(CKD) 75 (>60 ml/min/1.73 sqM); Potassium 4.1 mmol/L (3.5-5.1); Sodium 134 mmol/L (137-145)
[2024-10-27] MEDS: IV FLUID CONTINUATION 1,000 ML IV ONE (13:26)
[2024-10-27] MEDS: ONDANSETRON 4 MG/2 ML VIAL IVP PRN (13:38)
[2024-10-27] MEDS ORDERED: SUGAMMADEX SODIUM 100 MG/ML SYR IV ONE (13:55)
[2024-10-27] MEDS ORDERED: fentaNYL (PF) 50 MCG/ML 2 ML AMP ONE (13:55)
[2024-10-27] MEDS ORDERED: MIDAZOLAM 2 MG/2 ML VIAL ONE (13:55)
[2024-10-27] MEDS ORDERED: GLYCOPYRROLATE 0.2 MG/ML 2 ML VIAL ONE (13:55)
[2024-10-27] MEDS ORDERED: ROCURONIUM 10 MG/ML (5 ML VIAL) IV ONE (13:55)
[2024-10-27] MEDS ORDERED: NEOSTIGMINE 1 MG/ML 10 ML VIAL ONE (13:55)
[2024-10-27] MEDS ORDERED: PROPOFOL 10 MG/ML 20 ML VIAL IV ONE (13:55)
[2024-10-27] MEDS ORDERED: KETOROLAC 15 MG/ML 1 ML VIAL ONE (13:55)
[2024-10-27] MEDS ORDERED: LIDOCAINE 1% INJ 10MG/ML (20 ML MDV) ONE (13:55)
[2024-10-27] MEDS: IV FLUID CONTINUATION 1,000 ML with ceFAZolin 2,000 MG IV ONE (14:13)
[2024-10-27] MEDS: LIDOCAINE 1%-EPI 1:100,000 20 ML VIAL SQ ONE (14:27)
--- NOTE | 2024-10-27 14:28 | P.PN ---
Progress Note - Text Progress Note Date: 10/27/24 Chief Complaint: Pain Very pleasant 84-year-old patient who follows with Dr. Dave Emerson. Chronic medical conditions include osteoarthritis in multiple joints and keeps flaring up in different places. Hypertension. [place] 3 years ago with a stent. Patient has a flare of pain yesterday. In the back and the front in the abdomen. Decided to come in. Multiple locations. No fever no chills. No cough. October 27: Have abdominal pain. Seen this afternoon. NPO. Going down for surgery. Patient is no bedside. iv zosyn Active Medications Amlodipine Besylate (Amlodipine 5 Mg Tab) 5 mg PO DAILY [facility] Last Admin: 10/27/24 08:36 Dose: 5 mg Aspirin (Aspirin 81 Mg) 81 mg PO DAILY [facility] Last Admin: 10/27/24 08:36 Dose: 81 mg Atorvastatin Calcium (Atorvastatin 40 Mg Tab) 40 mg PO HS [facility] Last Admin: 10/26/24 20:49 Dose: 40 mg Calcium Carbonate/Glycine (Calcium Carbonate 500 Mg Chewable) 500 mg PO DAILY [facility] Last Admin: 10/27/24 08:35 Dose: 500 mg Cholecalciferol (Cholecalciferol 25 Mcg (1000 Iu) Tablet) 50 mcg PO DAILY [facility] Last Admin: 10/27/24 08:35 Dose: 50 mcg Hydromorphone HCl (Hydromorphone 1 Mg/Ml 1 Ml Syringe) 1 mg IVP Q3HR PRN PRN Reason: Severe Pain (Scale 7 to 10) Last Admin: 10/26/24 23:23 Dose: 0.5 mg Sodium Chloride (Saline 0.9%) 1,000 mls @ 75 mls/hr IV .[id number] [facility] Last Admin: 10/26/24 22:08 Dose: Not Given Piperacillin Sod/Tazobactam (Sod 3.375 gm/ Sodium Chloride) 100 mls @ 25 mls/hr IVPB Q8HR [facility]; Protocol Last Admin: 10/27/24 08:33 Dose: 25 mls/hr Lidocaine (Lidocaine 4% Patch) 1 patch TOPICAL DAILY [facility]; Protocol Last Admin: 10/27/24 08:35 Dose: Not Given Lisinopril (Lisinopril 20 Mg Tab) 20 mg PO DAILY [facility] Last Admin: 10/27/24 08:35 Dose: 20 mg Loratadine (Loratadine 10 Mg Tab) 10 mg PO DAILY [facility] Last Admin: 10/27/24 08:36 Dose: 10 mg Metoprolol Tartrate (Metoprolol Tartrate 25 Mg Tab) 25 mg PO HS [facility] Last Admin: 10/26/24 20:49 Dose: 25 mg Metoprolol Tartrate (Metoprolol Tartrate 50 Mg Tab) 50 mg PO DAILY [facility] Last Admin: 10/27/24 08:36 Dose: 50 mg Naloxone HCl (Naloxone 0.4 Mg/Ml 1 Ml Vial) 0.2 mg IV Q2M PRN PRN Reason: Opioid Reversal Nitrofurantoin Macrocrystals (Nitrofurantoin Monohyd/M-Cryst 100 Mg Cap) 100 mg PO DAILY [facility]; Protocol Last Admin: 10/27/24 08:36 Dose: 100 mg Enbrel (Etanercept) Sureclick 50 Mg/Ml Pen Injector 1 each SQ TH [facility] Ondansetron HCl (Ondansetron 4 Mg/2 Ml Vial) 4 mg IVP Q8HR PRN PRN Reason: Nausea And Vomiting Last Admin: 10/27/24 13:38 Dose: 4 mg Pantoprazole Sodium (Pantoprazole 40 Mg/10 Ml Vial) 40 mg IV DAILY [facility] Last Admin: 10/27/24 08:33 Dose: 40 mg Social history: Lives alone. No smoking or alcohol. Physical examination: VITAL SIGNS:, 16, 149 x 68, 98% room GENERAL: BMI 22.3, resting in bed. EYES: Pupils equal. Conjunctiva akira l. HEENT: External appearance of nose and ears normal, oral cavity grossly normal. NECK: JVD not raised; masses not palpable. HEART: First and second heart sounds are normal; no edema. LUNGS: Respiratory rate normal; clear to auscultation. ABDOMEN: Soft, some upper abdominal tenderness r, liver spleen not palpable, no masses palpable. PSYCH: Alert and oriented x3; mood and affect akira l. MUSCULOSKELETAL:No Clubbing/cyanosis;muscles-grossly intact. Tenderness to multiple joint INVESTIGATIONS, reviewed in the clinical context: Note: White count 7.8 hemoglobin 10.7 platelets 171 sodium 134 potassium 4.1 creatinine 0.75 October 26: White count 9.3 hemoglobin 10.4 platelets 186 potassium 4.4 BUN 20 Lucas 9.6 creatinine 0.8 AST 17 ALT 16 Troponin I less than 0.012 x 2. proBNP 493 October 25: White count 10.6 EKG tracing personally reviewed by me-normal sinus rhythm nonspecific, ST-T wave changes Chest x-ray film personally reviewed by me-nonspecific CT abdomen pelvis with contrast: Distended gallbladder with gallstones. Mild gallbladder wall thickening/edema. Chest CTA: Coronary artery calcification. Negative for PE Assessment plan: - Probable acute cholecystitis: Pending surgery this afternoon. Surgery following. IV Zosyn. - Hyperlipidemia Lipitor - Essential hypertension Lopressor, Norvasc, Zestril - Primary osteoarthritis multiple joints Pain medication as needed - CAD with stent about 3 years ago Aspirin. Lopressor. Pending surgery this afternoon. Past Medical History Past Medical History: Hypertension Additional Past Medical History / Comment(s): Neuropathy, Arthritis History of Any Multi-Drug Resistant Organisms: None Reported Past Surgical History: Hysterectomy, Joint Replacement, Orthopedic Surgery Additional Past Surgical History / Comment(s): bilat shoulder surgery, left total hip replacement 2022 at [facility] Past Psychological History: No Psychological Hx Reported Smoking Status: Never smoker Past Alcohol Use History: None Reported Past Drug Use History: None Reported
--- NOTE | 2024-10-27 15:33 | P.OP ---
Date of Procedure: 10/27/24 Preoperative Diagnosis: Acute Cholecystitis Postoperative Diagnosis: Acute Cholecystitis Procedure(s) Performed: Robotic Cholecystectomy Anesthesia: STEPHAN Surgeon: Rashaad Mcqueen Estimated Blood Loss (ml): 25 Pathology: other (Gallbladder) Condition: stable Disposition: PACU Description of Procedure: The patient was brought to the operating suite and placed in the supine position. Anesthesia was given and endotracheal intubation was performed. The abdomen was prepped and draped in the usual sterile fashion. A timeout was performed. An incision was made at Hernandez's point and a #5 mm optiview was used to gain access to the abdominal cavity. The abdomen was insufflated. The patient was positioned. Additional working ports were placed and the 5 mm port was replaced with a 12 mm port. The robot was docked and the rest of the procedure was performed from the console. The gallbladder was retracted in normal fashion and the cystic duct and cystic artery were visualized and isolated. A critical view of safety was obtained. Two clips were placed both proximally and distally on the cystic duct and the cystic artery. The duct and artery were divided. Bovie electrocautery was used to take the gallbladder off of the liver bed. There was good hemostasis. The galbladder was removed through the 12 mm port. The ports were removed. Incisions were closed with #4- 0 monocryl suture. Skin glue was applied. The patient tolerated the procedure well and was sent to the PACU in stable condition.
[2024-10-27] MEDS: HYDROmorphone 0.5 MG/0.5 ML SYRINGE IVP PRN (15:37)
[2024-10-27] MEDS: HYDROcodone/APAP 10-325MG 1 EACH TAB PO PRN (22:04)
[2024-10-28 08:24] LABS: HCT 31.5 % (37.2-46.3); HGB 10.1 g/dL (12.0-15.0); MCH 29.9 pg (27.0-32.0); MCHC 32.1 g/dL (32.0-37.0); MCV 93.2 FL (80.0-97.0); Mean Platelet Volume 11.7 FL (9.5-12.2); NRBC Per 100 WBC 0 X 10*3/uL (0.00-0.01); Platelet Count 191 X 10*3/uL (140-440); RBC 3.38 X 10*6/uL (4.10-5.20); RDW 13.9 % (11.5-14.5)
[2024-10-28 08:36] LABS: ALT 321 U/L (8-44); AST 361 U/L (13-35); Albumin 3.3 g/dL (3.8-4.9); Albumin/Globulin Ratio 1.57 Ratio (1.60-3.17); Alkaline Phosphatase 297 U/L (41-126); BUN/Creat Ratio 23.64 Ratio (12.00-20.00); Bilirubin, Conjugated 1.95 mg/dL (0.20-0.40); Bilirubin,Unconjugated 0.85 mg/dL (0.20-1.00); Calcium 8.6 mg/dL (8.7-10.3); Carbon Dioxide 21.8 mmol/L (21.6-31.8); Chloride 104 mmol/L (96-109); Globulin 2.1 g/dL (1.6-3.3); Glucose 104 mg/dL (70-110); Potassium 4.3 mmol/L (3.5-5.5); Sodium 137 mmol/L (135-145); Total Bilirubin 2.8 mg/dL (0.3-1.2); Total Protein 5.4 g/dL (6.2-8.2)
[2024-10-28 10:04] LABS: Basophils # (A) 0.03 X 10*3/uL (0.00-0.10); Basophils % (A) 0.3 %; Eosinophils # (A) 0 X 10*3/uL (0.04-0.35); Eosinophils % (A) 0 %; Lymphocytes # (A) 0.57 X 10*3/uL (0.90-5.00); Lymphocytes % (A) 5.5 %; Monocytes # (A) 0.49 X 10*3/uL (0.20-1.00); Monocytes % (A) 4.8 %; Neutrophils # (A) 9.17 X 10*3/uL (1.80-7.70); RBC Morphology Normal (Normal)
--- NOTE | 2024-10-28 10:26 | CA ---
Transthoracic Echo Report Name: Chanel Jarrett Age: 84 Gender: F : 1940 Exam Date: 10/28/2024 08:05 Exam Location: [facility] Ht (in): 62 Wt (lb): 122 Ordering Physician: Sofi Moreira Attending/Referring Phys: [id number], Harish Psychiatric Nursing Assistant Ancelmo Musa, KASSI Procedure CPT: Indications: Valvular heart disease Cardiac Hx: Technical Quality: Good Contrast 1: Total Dose (mL): Contrast 2: Total Dose (mL): MEASUREMENTS (Male / Female) Normal Values 2D ECHO LV Diastolic Diameter PLAX 3.9 cm 4.2 - 5.9 / 3.9 - 5.3 cm LV Systolic Diameter PLAX 2.1 cm IVS Diastolic Thickness 0.7 cm 0.6 - 1.0 / 0.6 - 0.9 cm LVPW Diastolic Thickness 0.7 cm 0.6 - 1.0 / 0.6 - 0.9 cm LV Relative Wall Thickness 0.4 RV Internal Dim ED PLAX 3.1 cm LVOT Diameter 1.5 cm LA Systolic Diameter LX 2.9 cm 3.0 - 4.0 / 2.7 - 3.8 cm LA Volume 65.2 cm??? 18 - 58 / 22 - 52 cm??? LA Volume Index 41.8 cm???/m??? 16 - 28 cm???/m??? DOPPLER AV Peak Velocity 218.8 cm/s AV Peak Gradient 19.2 mmHg AV Mean Velocity 156.0 cm/s AV Mean Gradient 10.5 mmHg AV Velocity Time Integral 44.6 cm AI Peak Velocity 365.0 cm/s AI Peak Gradient 53.3 mmHg AI Pressure Half Time 291.5 ms MV Peak Velocity 174.1 cm/s MV Peak Gradient 12.1 mmHg MV Mean Velocity 92.7 cm/s MV Mean Gradient 4.1 mmHg MV Velocity Time Integral 36.8 cm MV Area PHT 3.2 cm??? TR Peak Velocity 353.9 cm/s TR Peak Gradient 50.1 mmHg Right Atrial Pressure 10.0 mmHg Pulmonary Artery Systolic Pressu 60.1 mmHg Right Ventricular Systolic Press 60.1 mmHg FINDINGS Left Ventricle Left ventricular ejection fraction is estimated at 60-65%. Normal left ventricular systolic function with no obvious regional wall motion abnormalities. Left ventricular cavity size normal. Left ventricular wall thickness normal. Right Ventricle Right ventricular dilatation. Severe pulmonary hypertension. Right ventricular systolic pressure estimated at 60 mm hg. Right Atrium Normal right atrial size. Left Atrium Moderately increased left atrial volume. Mitral Valve Mitral annular calcification. Mild mitral stenosis. Mild mitral regurgitation. Aortic Valve Trileaflet aortic valve.diffuse thickening (sclerosis) of the aortic valve cusps without reduced excursion. No aortic stenosis. Moderate aortic regurgitation. Tricuspid Valve Structurally normal tricuspid valve. No tricuspid stenosis. Moderate tricuspid regurgitation. Pulmonic Valve Structurally normal pulmonic valve. No pulmonic stenosis. Trace pulmonic regurgitation. Pericardium No pericardial effusion. Aorta Normal size aortic root and proximal ascending aorta. CONCLUSIONS LVEF 60% No obvious regional wall motion abnormality. Normal LV cavity size and wall thickness Mild RV dilatation with preserved systolic function. Severe pulmonary hypertension with RVSP of 60 mmHg Moderate LA dilation Calcified aortic valve with moderate aortic regurgitation Moderate tricuspid regurgitation Previewed by: Dr Fco Holman (Electronically Signed) Final Date: 28 October 2024 10:25
--- NOTE | 2024-10-28 13:53 | P.PN ---
Subjective Progress Note Date: 10/28/24 SURGICAL PROGRESS NOTE CHIEF COMPLAINT: Acute cholecystitis HISTORY OF PRESENT ILLNESS: Patient is postop day #1 robotic cholecystectomy. Her pain is controlled. Patient did report some nausea. Denies any flatus. Per nursing staff patient urinating without difficulty. Patient's abdomen is mildly distended. She did get to sit at bedside chair this afternoon. Afebrile. WBC 10.3 Hgb 10.1 total bilirubin LFTs elevated. Total bilirubin 2.8 AST 361 ALT 321 alk phos 297 PHYSICAL EXAM: VITAL SIGNS: Reviewed. GENERAL: Well-developed in no acute distress. HEENT: No sclera icterus. Extraocular movements grossly intact. Moist buccal mucosa. Head is atraumatic, normocephalic. ABDOMEN: Soft. Nondistended. Tender at incision sites NEUROLOGIC: Alert and oriented. Cranial nerves II through XII grossly intact. ASSESSMENT: 1. Acute cholecystitis 2. Elevated total bilirubin and LFTs PLAN: - Repeat CMP in a.m. - Continue antibiotics - Continue pain management - Encourage patient to increase activity level. Consult PT Physician Warehouse Material Handler note has been reviewed by physician. Signing provider agrees with the documented findings, assessment, and plan of care. Attestation Patient seen and examined at bedside. Postoperative day #1, robotic cholecystectomy. Patient up in chair. Continue to increase activity. Physical therapy evaluation. Continue IV antibiotics. Repeat CMP in the a.m. to follow liver enzymes. Aracelis Olea, Objective - Vital Signs Vital signs: Vital Signs Temp 99.3 F 10/28/24 07:00 Pulse 87 10/28/24 07:00 Resp 16 10/28/24 07:00 BP 112/48 10/28/24 07:00 Pulse Ox 95 10/28/24 07:00 FiO2 21 10/27/24 08:49 Intake & Output 10/27/24 10/28/24 10/28/24 18:59 06:59 18:59 Intake Total 1000 Output Total 15 Balance 985 Intake: IV 1000 Output: Estimated Blood Loss 15 Other: Voiding Method Toilet Bedpan # Voids 2 3 - Labs CBC & Chem 7: 10/28/24 04:29 10/28/24 04:29 Labs: Abnormal Lab Results - Last 24 Hours (Table) 10/28/24 10/28/24 Range/Units 04:29 04:29 WBC 10.30 H (4.50-10.00) X 10*3/uL RBC 3.38 L (4.10-5.20) X 10*6/uL Hgb 10.1 L (12.0-15.0) g/dL Hct 31.5 L (37.2-46.3) % Neutrophils # 9.17 H (1.80-7.70) X 10*3/uL Lymphocytes # 0.57 L (0.90-5.00) X 10*3/uL Eosinophils # 0 L (0.04-0.35) X 10*3/uL Est GFR (CKD-EPI) 50 L (>=60) BUN/Creatinine Ratio 23.64 H (12.00-20.00) Ratio Calcium 8.6 L (8.7-10.3) mg/dL Total Bilirubin 2.8 H (0.3-1.2) mg/dL Conjugated Bilirubin 1.95 H (0.20-0.40) mg/dL AST 361 H (13-35) U/L ALT 321 H (8-44) U/L Alkaline Phosphatase 297 H (41-126) U/L Total Protein 5.4 L (6.2-8.2) g/dL Albumin 3.3 L (3.8-4.9) g/dL Albumin/Globulin Ratio 1.57 L (1.60-3.17) Ratio
--- NOTE | 2024-10-28 18:32 | P.PN ---
Progress Note - Text Progress Note Date: 10/28/24 Chief Complaint: Pain Very pleasant 84-year-old patient who follows with Dr. Dave Emerson. Chronic medical conditions include osteoarthritis in multiple joints and keeps flaring up in different places. Hypertension. [place] 3 years ago with a stent. Patient has a flare of pain yesterday. In the back and the front in the abdomen. Decided to come in. Multiple locations. No fever no chills. No cough. October 27: Have abdominal pain. Seen this afternoon. NPO. Going down for surgery. Patient is no bedside. iv zosyn October 28: Patient seen this morning. Some abdominal pain. On regular diet by surgery. No flatus. No BM. Requesting to stay 1 more day. Lives by herself. Also noted increased. LFTs Active Medications Hydrocodone Bitart/Acetaminophen (Hydrocodone/Apap 10-325mg 1 Each Tab) 1 each PO Q6HR PRN PRN Reason: Moderate Breakthrough Pain Last Admin: 10/28/24 13:37 Dose: 1 each Amlodipine Besylate (Amlodipine 5 Mg Tab) 5 mg PO DAILY [facility] Last Admin: 10/28/24 08:52 Dose: 5 mg Aspirin (Aspirin 81 Mg) 81 mg PO DAILY [facility] Last Admin: 10/28/24 08:52 Dose: 81 mg Atorvastatin Calcium (Atorvastatin 40 Mg Tab) 40 mg PO HS [facility] Last Admin: 10/27/24 21:52 Dose: 40 mg Calcium Carbonate/Glycine (Calcium Carbonate 500 Mg Chewable) 500 mg PO DAILY [facility] Last Admin: 10/28/24 08:54 Dose: 500 mg Cholecalciferol (Cholecalciferol 25 Mcg (1000 Iu) Tablet) 50 mcg PO DAILY [facility] Last Admin: 10/28/24 08:54 Dose: 50 mcg Hydromorphone HCl (Hydromorphone 1 Mg/Ml 1 Ml Syringe) 1 mg IVP Q3HR PRN PRN Reason: Severe Pain (Scale 7 to 10) Last Admin: 10/26/24 23:23 Dose: 0.5 mg Sodium Chloride (Saline 0.9%) 1,000 mls @ 75 mls/hr IV .[id number] [facility] Last Admin: 10/28/24 16:17 Dose: 75 mls/hr Piperacillin Sod/Tazobactam (Sod 3.375 gm/ Sodium Chloride) 100 mls @ 25 mls/hr IVPB Q8HR [facility]; Protocol Last Admin: 10/28/24 16:33 Dose: 25 mls/hr Lidocaine (Lidocaine 4% Patch) 1 patch TOPICAL DAILY [facility]; Protocol Last Admin: 10/28/24 09:10 Dose: Not Given Lisinopril (Lisinopril 20 Mg Tab) 20 mg PO DAILY [facility] Last Admin: 10/28/24 08:52 Dose: 20 mg Loratadine (Loratadine 10 Mg Tab) 10 mg PO DAILY [facility] Last Admin: 10/28/24 08:52 Dose: 10 mg Metoprolol Tartrate (Metoprolol Tartrate 25 Mg Tab) 25 mg PO HS [facility] Last Admin: 10/27/24 21:52 Dose: 25 mg Metoprolol Tartrate (Metoprolol Tartrate 50 Mg Tab) 50 mg PO DAILY [facility] Last Admin: 10/28/24 08:54 Dose: 50 mg Naloxone HCl (Naloxone 0.4 Mg/Ml 1 Ml Vial) 0.2 mg IV Q2M PRN PRN Reason: Opioid Reversal Nitrofurantoin Macrocrystals (Nitrofurantoin Monohyd/M-Cryst 100 Mg Cap) 100 mg PO DAILY [facility]; Protocol Last Admin: 10/28/24 08:52 Dose: 100 mg Enbrel (Etanercept) Sureclick 50 Mg/Ml Pen Injector 1 each SQ TH [facility] Ondansetron HCl (Ondansetron 4 Mg/2 Ml Vial) 4 mg IVP Q8HR PRN PRN Reason: Nausea And Vomiting Last Admin: 10/28/24 11:04 Dose: 4 mg Pantoprazole Sodium (Pantoprazole 40 Mg/10 Ml Vial) 40 mg IV DAILY [facility] Last Admin: 10/28/24 08:54 Dose: 40 mg Social history: Lives alone. No smoking or alcohol. Physical examination: VITAL SIGNS:, 98, 92, 17, 112 x 59, 95% room air GENERAL: BMI 22.3, resting in bed. EYES: Pupils equal. Conjunctiva akira l. HEENT: External appearance of nose and ears normal, oral cavity grossly normal. NECK: JVD not raised; masses not palpable. HEART: First and second heart sounds are normal; no edema. LUNGS: Respiratory rate normal; clear to auscultation. ABDOMEN: Soft, some abdominal tenderness r, liver spleen not palpable, no masses palpable. PSYCH: Alert and oriented x3; mood and affect akira l. MUSCULOSKELETAL:No Clubbing/cyanosis;muscles-grossly intact. Tenderness to multiple joint INVESTIGATIONS, reviewed in the clinical context: October 28: White count 10.3 hemoglobin 10.1 potassium 4.3 creatinine 1.1 T3 61 ALT 321 alkaline phosphatase 297 total bilirubin 2.8 Note: White count 7.8 hemoglobin 10.7 platelets 171 sodium 134 potassium 4.1 creatinine 0.75 October 26: White count 9.3 hemoglobin 10.4 platelets 186 potassium 4.4 BUN 20 Lucas 9.6 creatinine 0.8 AST 17 ALT 16 Troponin I less than 0.012 x 2. proBNP 493 October 25: White count 10.6 EKG tracing personally reviewed by me-normal sinus rhythm nonspecific, ST-T wave changes Chest x-ray film personally reviewed by me-nonspecific CT abdomen pelvis with contrast: Distended gallbladder with gallstones. Mild gallbladder wall thickening/edema. Chest CTA: Coronary artery calcification. Negative for PE Assessment plan: - Probable acute cholecystitis: Robotic cholecystectomy, October 27 Regular diet - Hyperlipidemia Lipitor - Acute postop transaminitis. Repeat labs - Essential hypertension Lopressor, Norvasc, Zestril - Primary osteoarthritis multiple joints Pain medication as needed - CAD with stent about 3 years ago Aspirin. Lopressor. Diet advanced. Repeat LFTs. Past Medical History Past Medical History: Hypertension Additional Past Medical History / Comment(s): Neuropathy, Arthritis History of Any Multi-Drug Resistant Organisms: None Reported Past Surgical History: Hysterectomy, Joint Replacement, Orthopedic Surgery Additional Past Surgical History / Comment(s): bilat shoulder surgery, left total hip replacement 2022 at [facility] Past Psychological History: No Psychological Hx Reported Smoking Status: Never smoker Past Alcohol Use History: None Reported Past Drug Use History: None Reported
[2024-10-29 04:52] LABS: Basophils # (A) 0.03 10*3/uL (0.00-0.10); Basophils % (A) 0.2 %; Eosinophils % (A) 0.8 %; HCT 26.6 % (37.2-46.3); Lymphocytes % (A) 6.2 %; MCH 30.5 pg (27.0-32.0); MCHC 33.5 g/dL (32.0-37.0); MCV 91.1 fL (80.0-97.0); Mean Platelet Volume 10.7 fL (9.5-12.2); Monocytes # (A) 0.39 10*3/uL (0.20-1.00); Neutrophils # (A) 11.56 10*3/uL (1.80-7.70); Neutrophils % (A) 89.3 %; Platelet Count 168 10*3/uL (140-440); RBC 2.92 10*6/uL (4.10-5.20); WBC 12.94 10*3/uL (4.50-10.00)
[2024-10-29 05:02] LABS: ALT 150 U/L (4-34); AST 128 U/L (14-36); African American GFR (CKD) 57 (>60 ml/min/1.73 sqM); Albumin 2.6 g/dL (3.5-5.0); Alkaline Phosphatase 257 U/L (38-126); Anion Gap 8 mmol/L; Blood Urea Nitrogen 27 mg/dL (7-17); Calcium 8.1 mg/dL (8.4-10.2); Carbon Dioxide 21 mmol/L (22-30); Chloride 99 mmol/L (98-107); Globulin 2.5 g/dL; Glucose 90 mg/dL (74-99); Non-African American GFR(CKD) 50 (>60 ml/min/1.73 sqM); Potassium 3.7 mmol/L (3.5-5.1); Sodium 128 mmol/L (137-145); Total Bilirubin 1.9 mg/dL (0.2-1.3); Total Protein 5.1 g/dL (6.3-8.2)
[2024-10-29 05:04] LABS: HGB 8.9 g/dL (12.0-15.0)
[2024-10-29 11:29] LABS: Albumin 2.6 g/dL (3.5-5.0); Albumin/Globulin Ratio 1.1; Bilirubin,Unconjugated 0.7 mg/dL (0.0-1.1); Globulin 2.4 g/dL; Total Bilirubin 1.8 mg/dL (0.2-1.3)
--- NOTE | 2024-10-29 13:57 | P.PN ---
Subjective Progress Note Date: 10/29/24 SURGICAL PROGRESS NOTE CHIEF COMPLAINT: Acute cholecystitis HISTORY OF PRESENT ILLNESS: Patient is postop day #2 robotic cholecystectomy. Patient does report pain along both sides of the abdomen and into her back. She does report a little nausea that improved with Zofran. Denies any vomiting. Denies any flatus. Afebrile. Heart rate 106 this morning. WBC 10.3 up to 12.94 Hgb 10.1 down to 8.9 creatinine 1.05 total bilirubin 2.8 down to 1.8. Sodium 128 AST 361-129 ALT 321-166 alk phos 297-261 PHYSICAL EXAM: VITAL SIGNS: Reviewed. GENERAL: Well-developed in no acute distress. HEENT: No sclera icterus. Extraocular movements grossly intact. Moist buccal mucosa. Head is atraumatic, normocephalic. ABDOMEN: Soft. Mildly distended. Mild bruising noted left upper quadrant trocar site otherwise incision sites clean dry and intact. NEUROLOGIC: Alert and oriented. Cranial nerves II through XII grossly intact. ASSESSMENT: 1. Acute cholecystitis status post robotic cholecystectomy 2. Elevated total bilirubin and LFTs PLAN: - Continue antibiotics - Continue pain management - Encourage patient to increase activity level - Hyponatremia management per medicine service - Continue IV fluids - Continue regular diet - Repeat labs in a.m. [employer] note has been reviewed by physician. Signing provider agrees with the documented findings, assessment, and plan of care. Objective - Vital Signs Vital signs: Vital Signs Temp 98.1 F 10/29/24 07:02 Pulse 106 H 10/29/24 07:02 Resp 18 10/29/24 07:02 BP 147/58 10/29/24 07:02 Pulse Ox 94 L 10/29/24 07:02 FiO2 21 10/27/24 08:49 Intake & Output 10/28/24 10/29/24 10/29/24 18:59 06:59 18:59 Other: Voiding Method Toilet Toilet # Voids 5 3 - Labs CBC & Chem 7: 10/29/24 04:28 10/29/24 04:28 Labs: Abnormal Lab Results - Last 24 Hours (Table) 10/29/24 10/29/24 10/29/24 Range/Units 04:28 04:28 04:28 WBC 12.94 H (4.50-10.00) 10*3/uL RBC 2.92 L (4.10-5.20) 10*6/uL Hgb 8.9 L D (12.0-15.0) g/dL Hct 26.6 L (37.2-46.3) % Immature Gran # 0.06 H (0.00-0.04) 10*3/uL Neutrophils # 11.56 H (1.80-7.70) 10*3/uL Lymphocytes # 0.80 L (0.90-5.00) 10*3/uL Sodium 128 L (137-145) mmol/L Carbon Dioxide 21 L (22-30) mmol/L BUN 27 H (7-17) mg/dL Creatinine 1.05 H (0.52-1.04) mg/dL Calcium 8.1 L (8.4-10.2) mg/dL Total Bilirubin 1.9 H 1.8 H (0.2-1.3) mg/dL AST 128 H 129 H (14-36) U/L ALT 150 H 166 H (4-34) U/L Alkaline Phosphatase 257 H 261 H (38-126) U/L Total Protein 5.1 L 5.0 L (6.3-8.2) g/dL Albumin 2.6 L 2.6 L (3.5-5.0) g/dL
[2024-10-29] MEDS: ETANERCEPT SQ SCH (14:38)
--- NOTE | 2024-10-29 18:55 | P.PN ---
Progress Note - Text Progress Note Date: 10/29/24 Chief Complaint: Pain Very pleasant 84-year-old patient who follows with Dr. Dave Emerson. Chronic medical conditions include osteoarthritis in multiple joints and keeps flaring up in different places. Hypertension. [place] 3 years ago with a stent. Patient has a flare of pain yesterday. In the back and the front in the abdomen. Decided to come in. Multiple locations. No fever no chills. No cough. October 27: Have abdominal pain. Seen this afternoon. NPO. Going down for surgery. Patient is no bedside. iv zosyn October 28: Patient seen this morning. Some abdominal pain. On regular diet by surgery. No flatus. No BM. Requesting to stay 1 more day. Lives by herself. Also noted increased. LFTs October 29: Patient seen this morning. Has abdominal pain. Eating little. No bowel movement. Still having some pain. Spoke to nurse increase activity. IV Zosyn. Active Medications Hydrocodone Bitart/Acetaminophen (Hydrocodone/Apap 10-325mg 1 Each Tab) 1 each PO Q6HR PRN PRN Reason: Moderate Breakthrough Pain Last Admin: 10/29/24 14:49 Dose: 1 each Amlodipine Besylate (Amlodipine 5 Mg Tab) 5 mg PO DAILY [facility] Last Admin: 10/29/24 07:58 Dose: 5 mg Aspirin (Aspirin 81 Mg) 81 mg PO DAILY [facility] Last Admin: 10/29/24 07:58 Dose: 81 mg Atorvastatin Calcium (Atorvastatin 40 Mg Tab) 40 mg PO HS [facility] Last Admin: 10/28/24 20:27 Dose: 40 mg Calcium Carbonate/Glycine (Calcium Carbonate 500 Mg Chewable) 500 mg PO DAILY [facility] Last Admin: 10/29/24 07:57 Dose: 500 mg Cholecalciferol (Cholecalciferol 25 Mcg (1000 Iu) Tablet) 50 mcg PO DAILY [facility] Last Admin: 10/29/24 07:57 Dose: 50 mcg Hydromorphone HCl (Hydromorphone 1 Mg/Ml 1 Ml Syringe) 1 mg IVP Q3HR PRN PRN Reason: Severe Pain (Scale 7 to 10) Last Admin: 10/26/24 23:23 Dose: 0.5 mg Sodium Chloride (Saline 0.9%) 1,000 mls @ 75 mls/hr IV .[id number] [facility] Last Admin: 10/29/24 16:07 Dose: 75 mls/hr Piperacillin Sod/Tazobactam (Sod 3.375 gm/ Sodium Chloride) 100 mls @ 25 mls/hr IVPB Q8HR [facility]; Protocol Last Admin: 10/29/24 16:05 Dose: 25 mls/hr Lidocaine (Lidocaine 4% Patch) 1 patch TOPICAL DAILY [facility]; Protocol Last Admin: 10/29/24 10:42 Dose: Not Given Lisinopril (Lisinopril 20 Mg Tab) 20 mg PO DAILY [facility] Last Admin: 10/29/24 07:58 Dose: 20 mg Loratadine (Loratadine 10 Mg Tab) 10 mg PO DAILY [facility] Last Admin: 10/29/24 07:58 Dose: 10 mg Metoprolol Tartrate (Metoprolol Tartrate 25 Mg Tab) 25 mg PO HS [facility] Last Admin: 10/28/24 20:27 Dose: 25 mg Metoprolol Tartrate (Metoprolol Tartrate 50 Mg Tab) 50 mg PO DAILY [facility] Last Admin: 10/29/24 07:57 Dose: 50 mg Naloxone HCl (Naloxone 0.4 Mg/Ml 1 Ml Vial) 0.2 mg IV Q2M PRN PRN Reason: Opioid Reversal Nitrofurantoin Macrocrystals (Nitrofurantoin Monohyd/M-Cryst 100 Mg Cap) 100 mg PO DAILY [facility]; Protocol Last Admin: 10/29/24 07:56 Dose: 100 mg Enbrel (Etanercept) Sureclick 50 Mg/Ml Pen Injector 1 each SQ TH [facility] Last Admin: 10/29/24 14:38 Dose: Not Given Ondansetron HCl (Ondansetron 4 Mg/2 Ml Vial) 4 mg IVP Q8HR PRN PRN Reason: Nausea And Vomiting Last Admin: 10/28/24 11:04 Dose: 4 mg Pantoprazole Sodium (Pantoprazole 40 Mg/10 Ml Vial) 40 mg IV DAILY [facility] Last Admin: 10/29/24 07:56 Dose: 40 mg Social history: Lives alone. No smoking or alcohol. Physical examination: VITAL SIGNS:, 98.1, 102, 16, 145 x 64, 93% room air GENERAL: BMI 22.3, resting in bed. EYES: Pupils equal. Conjunctiva akira l. HEENT: External appearance of nose and ears normal, oral cavity grossly normal. NECK: JVD not raised; masses not palpable. HEART: First and second heart sounds are normal; no edema. LUNGS: Respiratory rate normal; clear to auscultation. ABDOMEN: Soft, some abdominal tenderness r, liver spleen not palpable, no masses palpable. PSYCH: Alert and oriented x3; mood and affect akira l. MUSCULOSKELETAL:No Clubbing/cyanosis;muscles-grossly intact. Tenderness to multiple joint INVESTIGATIONS, reviewed in the clinical context: October 29: White count 12.9 hemoglobin 8.9 potassium 3.7 BUN 27 creatinine 1.05. Sodium 128 October 28: White count 10.3 hemoglobin 10.1 potassium 4.3 creatinine 1.1 T3 61 ALT 321 alkaline phosphatase 297 total bilirubin 2.8 Note: White count 7.8 hemoglobin 10.7 platelets 171 sodium 134 potassium 4.1 creatinine 0.75 October 26: White count 9.3 hemoglobin 10.4 platelets 186 potassium 4.4 BUN 20 Lucas 9.6 creatinine 0.8 AST 17 ALT 16 Troponin I less than 0.012 x 2. proBNP 493 October 25: White count 10.6 EKG tracing personally reviewed by me-normal sinus rhythm nonspecific, ST-T wave changes Chest x-ray film personally reviewed by me-nonspecific CT abdomen pelvis with contrast: Distended gallbladder with gallstones. Mild gallbladder wall thickening/edema. Chest CTA: Coronary artery calcification. Negative for PE Assessment plan: - acute cholecystitis: Robotic cholecystectomy, October 27 Regular diet Has not had a bowel movement. Increase activity. - Hyponatremia. Encourage solid food intake - Hyperlipidemia Lipitor - Acute postop transaminitis. Repeat labs - Essential hypertension Lopressor, Norvasc, Zestril - Primary osteoarthritis multiple joints Pain medication as needed - CAD with stent about 3 years ago Aspirin. Lopressor. Increase activity. Continue Zosyn. Repeat labs. Past Medical History Past Medical History: Hypertension Additional Past Medical History / Comment(s): Neuropathy, Arthritis History of Any Multi-Drug Resistant Organisms: None Reported Past Surgical History: Hysterectomy, Joint Replacement, Orthopedic Surgery Additional Past Surgical History / Comment(s): bilat shoulder surgery, left total hip replacement 2022 at [facility] Past Psychological History: No Psychological Hx Reported Smoking Status: Never smoker Past Alcohol Use History: None Reported Past Drug Use History: None Reported
[2024-10-30 04:11] LABS: Basophils # (A) 0.03 10*3/uL (0.00-0.10); Basophils % (A) 0.2 %; Eosinophils # (A) 0.12 10*3/uL (0.04-0.35); Eosinophils % (A) 0.7 %; HCT 28.3 % (37.2-46.3); HGB 9.6 g/dL (12.0-15.0); Lymphocytes # (A) 0.84 10*3/uL (0.90-5.00); MCH 30.6 pg (27.0-32.0); MCHC 33.9 g/dL (32.0-37.0); MCV 90.1 fL (80.0-97.0); Mean Platelet Volume 10.7 fL (9.5-12.2); Monocytes # (A) 0.52 10*3/uL (0.20-1.00); Monocytes % (A) 3.1 %; Neutrophils # (A) 14.96 10*3/uL (1.80-7.70); Platelet Count 196 10*3/uL (140-440); RBC 3.14 10*6/uL (4.10-5.20); WBC 16.64 10*3/uL (4.50-10.00)
[2024-10-30 04:31] LABS: ALT 118 U/L (4-34); AST 77 U/L (14-36); African American GFR (CKD) 67 (>60 ml/min/1.73 sqM); Albumin 2.8 g/dL (3.5-5.0); Alkaline Phosphatase 422 U/L (38-126); Anion Gap 9 mmol/L; Blood Urea Nitrogen 22 mg/dL (7-17); Calcium 8.2 mg/dL (8.4-10.2); Carbon Dioxide 20 mmol/L (22-30); Chloride 102 mmol/L (98-107); Globulin 2.7 g/dL; Glucose 90 mg/dL (74-99); Non-African American GFR(CKD) 58 (>60 ml/min/1.73 sqM); Sodium 131 mmol/L (137-145); Total Bilirubin 1.3 mg/dL (0.2-1.3); Total Protein 5.5 g/dL (6.3-8.2)
[2024-10-30] MEDS: SENNOSIDES 8.6 MG TAB PO SCH (12:51)
[2024-10-30 13:29] VITALS: BMI 22.3
--- NOTE | 2024-10-30 14:12 | P.PN ---
Subjective Progress Note Date: 10/30/24 SURGICAL PROGRESS NOTE CHIEF COMPLAINT: Acute cholecystitis HISTORY OF PRESENT ILLNESS: Patient is postop day #3 robotic cholecystectomy. Patient continues to complain of pain on both upper sides of the abdomen rating up into the shoulder. She is having flatus. No bowel movement. Reports burping. She does report that her abdomen still feels distended. She has been mildly tachycardic. WBC did go up from 12-16. Hgb 9.6. Total bilirubin normalized at 1.3 LFTs trending down alk phos did go up from 261-422 afebrile. PHYSICAL EXAM: VITAL SIGNS: Reviewed. GENERAL: Well-developed in no acute distress. HEENT: No sclera icterus. Extraocular movements grossly intact. Moist buccal mucosa. Head is atraumatic, normocephalic. ABDOMEN: Soft. distended. Mild bruising noted left upper quadrant trocar site otherwise incision sites clean dry and intact. NEUROLOGIC: Alert and oriented. Cranial nerves II through XII grossly intact. ASSESSMENT: 1. Acute cholecystitis status post robotic cholecystectomy 2. Elevated total bilirubin and LFTs. Total bilirubin normalized PLAN: -Continue to monitor -Senokot added for constipation -Continue antibiotics -Encourage patient to increase activity level - Repeat CBC and CMP in a.m. Physician [employer] note has been reviewed by physician. Signing provider agrees with the documented findings, assessment, and plan of care. Attestation Patient seen and examined at bedside. Postoperative day #3, robotic cholecystectomy. Patient noted to have some elevation in leukocytosis today. No bowel movement as of yet. Abdomen is mildly distended with no tenderness on exam. She is afebrile. Bilirubin levels have normalized. Continue IV antibio tics. Continue to encourage ambulation. Patient given bowel regimen. Aracelis Olea DO Objective - Vital Signs Vital signs: Vital Signs Temp 98.2 F 10/30/24 07:00 Pulse 105 H 10/30/24 08:00 Resp 18 10/30/24 07:00 BP 134/63 10/30/24 07:00 Pulse Ox 95 10/30/24 07:00 FiO2 21 10/27/24 08:49 Intake & Output 10/29/24 10/30/24 10/30/24 18:59 06:59 18:59 Intake Total 480 Balance 480 Weight 55.338 kg Intake: Oral 480 Other: Voiding Method Toilet # Voids 6 4 1 - Labs CBC & Chem 7: 10/30/24 03:15 10/30/24 03:15 Labs: Abnormal Lab Results - Last 24 Hours (Table) 10/30/24 10/30/24 Range/Units 03:15 03:15 WBC 16.64 H (4.50-10.00) 10*3/uL RBC 3.14 L (4.10-5.20) 10*6/uL Hgb 9.6 L (12.0-15.0) g/dL Hct 28.3 L (37.2-46.3) % Immature Gran # 0.17 H (0.00-0.04) 10*3/uL Neutrophils # 14.96 H (1.80-7.70) 10*3/uL Lymphocytes # 0.84 L (0.90-5.00) 10*3/uL Sodium 131 L (137-145) mmol/L Carbon Dioxide 20 L (22-30) mmol/L BUN 22 H (7-17) mg/dL Calcium 8.2 L (8.4-10.2) mg/dL AST 77 H (14-36) U/L ALT 118 H (4-34) U/L Alkaline Phosphatase 422 H (38-126) U/L Total Protein 5.5 L (6.3-8.2) g/dL Albumin 2.8 L (3.5-5.0) g/dL
--- NOTE | 2024-10-30 17:46 | P.PN ---
Progress Note - Text Progress Note Date: 10/30/24 Chief Complaint: Pain Very pleasant 84-year-old patient who follows with Dr. Dave Emerson. Chronic medical conditions include osteoarthritis in multiple joints and keeps flaring up in different places. Hypertension. [place] 3 years ago with a stent. Patient has a flare of pain yesterday. In the back and the front in the abdomen. Decided to come in. Multiple locations. No fever no chills. No cough. October 27: Have abdominal pain. Seen this afternoon. NPO. Going down for surgery. Patient is no bedside. iv zosyn October 28: Patient seen this morning. Some abdominal pain. On regular diet by surgery. No flatus. No BM. Requesting to stay 1 more day. Lives by herself. Also noted increased. LFTs October 29: Patient seen this morning. Has abdominal pain. Eating little. No bowel movement. Still having some pain. Spoke to nurse increase activity. IV Zosyn. October 30: Abdomen feels a bit distended. Pain present. No nausea vomiting. Some improvement with oral intake. Was up in the chair. Did have the nurse to ambulate the patient. Increasing white count. Remains on IV Zosyn. Not ready for discharge Daily Active Medications Hydrocodone Bitart/Acetaminophen (Hydrocodone/Apap 10-325mg 1 Each Tab) 1 each PO Q6HR PRN PRN Reason: Moderate Breakthrough Pain Last Admin: 10/30/24 14:18 Dose: 1 each Amlodipine Besylate (Amlodipine 5 Mg Tab) 5 mg PO DAILY [facility] Last Admin: 10/30/24 08:23 Dose: 5 mg Aspirin (Aspirin 81 Mg) 81 mg PO DAILY [facility] Last Admin: 10/30/24 08:25 Dose: 81 mg Atorvastatin Calcium (Atorvastatin 40 Mg Tab) 40 mg PO HS [facility] Last Admin: 10/29/24 21:07 Dose: 40 mg Calcium Carbonate/Glycine (Calcium Carbonate 500 Mg Chewable) 500 mg PO DAILY [facility] Last Admin: 10/30/24 08:24 Dose: 500 mg Cholecalciferol (Cholecalciferol 25 Mcg (1000 Iu) Tablet) 50 mcg PO DAILY [facility] Last Admin: 10/30/24 08:24 Dose: 50 mcg Hydromorphone HCl (Hydromorphone 1 Mg/Ml 1 Ml Syringe) 1 mg IVP Q3HR PRN PRN Reason: Severe Pain (Scale 7 to 10) Last Admin: 10/26/24 23:23 Dose: 0.5 mg Sodium Chloride (Saline 0.9%) 1,000 mls @ 75 mls/hr IV .[id number] [facility] Last Admin: 10/30/24 16:32 Dose: 75 mls/hr Piperacillin Sod/Tazobactam (Sod 3.375 gm/ Sodium Chloride) 100 mls @ 25 mls/hr IVPB Q8HR [facility]; Protocol Last Admin: 10/30/24 16:36 Dose: 25 mls/hr Lidocaine (Lidocaine 4% Patch) 1 patch TOPICAL DAILY [facility]; Protocol Last Admin: 10/30/24 08:28 Dose: Not Given Lisinopril (Lisinopril 20 Mg Tab) 20 mg PO DAILY [facility] Last Admin: 10/30/24 08:25 Dose: 20 mg Loratadine (Loratadine 10 Mg Tab) 10 mg PO DAILY [facility] Last Admin: 10/30/24 08:25 Dose: 10 mg Metoprolol Tartrate (Metoprolol Tartrate 25 Mg Tab) 25 mg PO HS [facility] Last Admin: 10/29/24 21:07 Dose: 25 mg Metoprolol Tartrate (Metoprolol Tartrate 50 Mg Tab) 50 mg PO DAILY [facility] Last Admin: 10/30/24 08:24 Dose: 50 mg Naloxone HCl (Naloxone 0.4 Mg/Ml 1 Ml Vial) 0.2 mg IV Q2M PRN PRN Reason: Opioid Reversal Nitrofurantoin Macrocrystals (Nitrofurantoin Monohyd/M-Cryst 100 Mg Cap) 100 mg PO DAILY [facility]; Protocol Last Admin: 10/30/24 08:24 Dose: 100 mg Enbrel (Etanercept) Sureclick 50 Mg/Ml Pen Injector 1 each SQ TH [facility] Last Admin: 10/29/24 14:38 Dose: Not Given Ondansetron HCl (Ondansetron 4 Mg/2 Ml Vial) 4 mg IVP Q8HR PRN PRN Reason: Nausea And Vomiting Last Admin: 10/28/24 11:04 Dose: 4 mg Pantoprazole Sodium (Pantoprazole 40 Mg/10 Ml Vial) 40 mg IV DAILY [facility] Last Admin: 10/30/24 08:22 Dose: 40 mg Senna (Sennosides 8.6 Mg Tab) 8.6 mg PO BID [facility] Last Admin: 10/30/24 12:51 Dose: 8.6 mg Social history: Lives alone. No smoking or alcohol. Physical examination: VITAL SIGNS:, 98.1, 106, 17, 145 x 65, 92% room air GENERAL: BMI 22.3, resting in bed. EYES: Pupils equal. Conjunctiva akira l. HEENT: External appearance of nose and ears normal, oral cavity grossly normal. NECK: JVD not raised; masses not palpable. HEART: First and second heart sounds are normal; no edema. LUNGS: Respiratory rate normal; clear to auscultation. ABDOMEN: Soft, some abdominal distention and tenderness r, liver spleen not palpable, no masses palpable. PSYCH: Alert and oriented x3; mood and affect akira l. MUSCULOSKELETAL:No Clubbing/cyanosis;muscles-grossly intact. Tenderness to multiple joint INVESTIGATIONS, reviewed in the clinical context: October 30: White count 16.6 hemoglobin 9.6 potassium 4 creatinine 0.93 October 29: White count 12.9 hemoglobin 8.9 potassium 3.7 BUN 27 creatinine 1.05. Sodium 128 October 28: White count 10.3 hemoglobin 10.1 potassium 4.3 creatinine 1.1 T3 61 ALT 321 alkaline phosphatase 297 total bilirubin 2.8 Note: White count 7.8 hemoglobin 10.7 platelets 171 sodium 134 potassium 4.1 creatinine 0.75 October 26: White count 9.3 hemoglobin 10.4 platelets 186 potassium 4.4 BUN 20 Lucas 9.6 creatinine 0.8 AST 17 ALT 16 Troponin I less than 0.012 x 2. proBNP 493 October 25: White count 10.6 EKG tracing personally reviewed by me-normal sinus rhythm nonspecific, ST-T wave changes Chest x-ray film personally reviewed by me-nonspecific CT abdomen pelvis with contrast: Distended gallbladder with gallstones. Mild gallbladder wall thickening/edema. Chest CTA: Coronary artery calcification. Negative for PE Assessment plan: - acute cholecystitis: Robotic cholecystectomy, October 27 Regular diet Has not had a bowel movement. Increase activity - Acute leukocytosis. Continue with IV Zosyn. - Hyponatremia. Encourage solid food intake - Hyperlipidemia Lipitor - Acute postop transaminitis. Repeat labs - Essential hypertension Lopressor, Norvasc, Zestril - Primary osteoarthritis multiple joints Pain medication as needed - CAD with stent about 3 years ago Aspirin. Lopressor. Increase activity. Continue Zosyn. Past Medical History Past Medical History: Hypertension Additional Past Medical History / Comment(s): Neuropathy, Arthritis History of Any Multi-Drug Resistant Organisms: None Reported Past Surgical History: Hysterectomy, Joint Replacement, Orthopedic Surgery Additional Past Surgical History / Comment(s): bilat shoulder surgery, left total hip replacement 2022 at [facility] Past Psychological History: No Psychological Hx Reported Smoking Status: Never smoker Past Alcohol Use History: None Reported Past Drug Use History: None Reported
[2024-10-31 06:23] LABS: Basophils # (A) 0.05 10*3/uL (0.00-0.10); Basophils % (A) 0.3 %; Eosinophils # (A) 0.19 10*3/uL (0.04-0.35); Eosinophils % (A) 1.2 %; HCT 31.5 % (37.2-46.3); HGB 10.4 g/dL (12.0-15.0); Lymphocytes # (A) 1.05 10*3/uL (0.90-5.00); Lymphocytes % (A) 6.7 %; MCH 29.5 pg (27.0-32.0); MCV 89.2 fL (80.0-97.0); Mean Platelet Volume 9.8 fL (9.5-12.2); Monocytes % (A) 5.1 %; Neutrophils # (A) 13.51 10*3/uL (1.80-7.70); Neutrophils % (A) 85.9 %; Platelet Count 266 10*3/uL (140-440); RBC 3.53 10*6/uL (4.10-5.20); RDW 14.3 % (11.5-14.5); WBC 15.73 10*3/uL (4.50-10.00)
[2024-10-31 06:49] LABS: ALT 85 U/L (4-34); AST 54 U/L (14-36); African American GFR (CKD) 80 (>60 ml/min/1.73 sqM); Albumin 3.2 g/dL (3.5-5.0); Albumin/Globulin Ratio 1.1; Alkaline Phosphatase 545 U/L (38-126); Anion Gap 9 mmol/L; Blood Urea Nitrogen 18 mg/dL (7-17); Calcium 8.8 mg/dL (8.4-10.2); Carbon Dioxide 23 mmol/L (22-30); Chloride 100 mmol/L (98-107); Globulin 2.9 g/dL; Glucose 104 mg/dL (74-99); Non-African American GFR(CKD) 69 (>60 ml/min/1.73 sqM); Potassium 3.6 mmol/L (3.5-5.1); Sodium 132 mmol/L (137-145); Total Bilirubin 1.3 mg/dL (0.2-1.3); Total Protein 6.1 g/dL (6.3-8.2)
--- NOTE | 2024-10-31 12:21 | P.PN ---
Subjective Progress Note Date: 10/31/24 Patient seen and examined at bedside. States that she feels constipated. Has not had a bowel movement since admission. Objective - Vital Signs Vital signs: Vital Signs Temp 98.4 F 10/31/24 08:00 Pulse 85 10/31/24 08:00 Resp 17 10/31/24 08:00 BP 135/75 10/31/24 08:00 Pulse Ox 94 L 10/31/24 08:00 FiO2 21 10/27/24 08:49 Intake & Output 10/30/24 10/31/24 10/31/24 18:59 06:59 18:59 Intake Total 480 237 Balance 480 237 Weight 55.338 kg Intake: Oral 480 237 Other: Voiding Method Toilet # Voids 1 4 - Constitutional General appearance: Present: cooperative, no acute distress - Respiratory Details: No difficulty with respiration - Gastrointestinal Gastrointestinal Comment(s): Soft, appropriate tenderness, mild distention - Labs CBC & Chem 7: 10/31/24 06:04 10/31/24 06:04 Labs: Abnormal Lab Results - Last 24 Hours (Table) 10/31/24 10/31/24 Range/Units 06:04 06:04 WBC 15.73 H (4.50-10.00) 10*3/uL RBC 3.53 L (4.10-5.20) 10*6/uL Hgb 10.4 L (12.0-15.0) g/dL Hct 31.5 L (37.2-46.3) % Immature Gran # 0.13 H (0.00-0.04) 10*3/uL Neutrophils # 13.51 H (1.80-7.70) 10*3/uL Sodium 132 L (137-145) mmol/L BUN 18 H (7-17) mg/dL Glucose 104 H (74-99) mg/dL AST 54 H (14-36) U/L ALT 85 H (4-34) U/L Alkaline Phosphatase 545 H (38-126) U/L Total Protein 6.1 L (6.3-8.2) g/dL Albumin 3.2 L (3.5-5.0) g/dL Assessment and Plan Plan: Postoperative, robotic cholecystectomy. Leukocytosis still present, somewhat decreased from previous day. Continue IV antibiotics. Patient started on MiraLAX secondary to constipation. Continue to increase activity. Continue medical management.
[2024-10-31] MEDS: polyethylene glycoL 3350 17 GM POWD.PACK PO SCH (13:34)
--- NOTE | 2024-10-31 19:59 | P.DS ---
Providers Date of admission: 10/25/24 19:53 Expected date of discharge: 10/31/24 Attending physician: Vini Ashraf Consults: 10/25/24 19:51 Consult Physician Routine Consulting Provider: Ronaldo Cordova Consult Reason/Comments: cholecystitis Do you want consulting provider notified?: Yes Primary care physician: Dave Emerson [facility] Hospital Course: Chief Complaint: Pain Very pleasant 84-year-old patient who follows with Dr. Dave Emersno. Chronic medical conditions include osteoarthritis in multiple joints and keeps flaring up in different places. Hypertension. [place] 3 years ago with a stent. Patient has a flare of pain yesterday. In the back and the front in the abdomen. Decided to come in. Multiple locations. No fever no chills. No cough. October 27: Have abdominal pain. Seen this afternoon. NPO. Going down for surgery. Patient is no bedside. iv zosyn October 28: Patient seen this morning. Some abdominal pain. On regular diet by surgery. No flatus. No BM. Requesting to stay 1 more day. Lives by herself. Also noted increased. LFTs October 29: Patient seen this morning. Has abdominal pain. Eating little. No bowel movement. Still having some pain. Spoke to nurse increase activity. IV Zosyn. October 30: Abdomen feels a bit distended. Pain present. No nausea vomiting. Some improvement with oral intake. Was up in the chair. Did have the nurse to ambulate the patient. Increasing white count. Remains on IV Zosyn. Not ready for discharge October 31: Patient doing much better. Seen this morning. Has not had a bowel mo vement. Eating better. Ambulating. Pain much improved. On IV Zosyn. No nausea vomiting Active Medications Hydrocodone Bitart/Acetaminophen (Hydrocodone/Apap 10-325mg 1 Each Tab) 1 each PO Q6HR PRN PRN Reason: Moderate Breakthrough Pain Last Admin: 10/31/24 16:38 Dose: 1 each Amlodipine Besylate (Amlodipine 5 Mg Tab) 5 mg PO DAILY [facility] Last Admin: 10/31/24 08:36 Dose: 5 mg Aspirin (Aspirin 81 Mg) 81 mg PO DAILY [facility] Last Admin: 10/31/24 08:35 Dose: 81 mg Atorvastatin Calcium (Atorvastatin 40 Mg Tab) 40 mg PO HS [facility] Last Admin: 10/30/24 20:49 Dose: 40 mg Calcium Carbonate/Glycine (Calcium Carbonate 500 Mg Chewable) 500 mg PO DAILY [facility] Last Admin: 10/31/24 08:34 Dose: 500 mg Cholecalciferol (Cholecalciferol 25 Mcg (1000 Iu) Tablet) 50 mcg PO DAILY [facility] Last Admin: 10/31/24 08:35 Dose: 50 mcg Hydromorphone HCl (Hydromorphone 1 Mg/Ml 1 Ml Syringe) 1 mg IVP Q3HR PRN PRN Reason: Severe Pain (Scale 7 to 10) Last Admin: 10/26/24 23:23 Dose: 0.5 mg Sodium Chloride (Saline 0.9%) 1,000 mls @ 75 mls/hr IV .[id number] [facility] Last Admin: 10/31/24 10:35 Dose: Not Given Piperacillin Sod/Tazobactam (Sod 3.375 gm/ Sodium Chloride) 100 mls @ 25 mls/hr IVPB Q8HR [facility]; Protocol Last Admin: 10/31/24 16:37 Dose: 25 mls/hr Lidocaine (Lidocaine 4% Patch) 1 patch TOPICAL DAILY [facility]; Protocol Last Admin: 10/31/24 10:01 Dose: Not Given Lisinopril (Lisinopril 20 Mg Tab) 20 mg PO DAILY [facility] Last Admin: 10/31/24 08:36 Dose: 20 mg Loratadine (Loratadine 10 Mg Tab) 10 mg PO DAILY [facility] Last Admin: 10/31/24 08:35 Dose: 10 mg Metoprolol Tartrate (Metoprolol Tartrate 25 Mg Tab) 25 mg PO HS [facility] Last Admin: 10/30/24 20:49 Dose: 25 mg Metoprolol Tartrate (Metoprolol Tartrate 50 Mg Tab) 50 mg PO DAILY [facility] Last Admin: 10/31/24 08:35 Dose: 50 mg Naloxone HCl (Naloxone 0.4 Mg/Ml 1 Ml Vial) 0.2 mg IV Q2M PRN PRN Reason: Opioid Reversal Nitrofurantoin Macrocrystals (Nitrofurantoin Monohyd/M-Cryst 100 Mg Cap) 100 mg PO DAILY [facility]; Protocol Last Admin: 10/31/24 08:35 Dose: 100 mg Enbrel (Etanercept) Sureclick 50 Mg/Ml Pen Injector 1 each SQ TH [facility] Last Admin: 10/29/24 14:38 Dose: Not Given Ondansetron HCl (Ondansetron 4 Mg/2 Ml Vial) 4 mg IVP Q8HR PRN PRN Reason: Nausea And Vomiting Last Admin: 10/28/24 11:04 Dose: 4 mg Pantoprazole Sodium (Pantoprazole 40 Mg/10 Ml Vial) 40 mg IV DAILY [facility] Last Admin: 10/31/24 08:36 Dose: 40 mg Polyethylene Glycol (Polyethylene Glycol 3350 17 Gm Powd.Pack) 17 gm PO DAILY [facility] Last Admin: 10/31/24 13:34 Dose: 17 gm Senna (Sennosides 8.6 Mg Tab) 8.6 mg PO BID [facility] Last Admin: 10/31/24 08:35 Dose: 8.6 mg Social history: Lives alone. No smoking or alcohol. Physical examination: VITAL SIGNS:, 98.1, 96, 17, 131 x 64, 90% room air GENERAL: BMI 22.3, resting in bed. EYES: Pupils equal. Conjunctiva akira l. HEENT: External appearance of nose and ears normal, oral cavity grossly normal. NECK: JVD not raised; masses not palpable. HEART: First and second heart sounds are normal; no edema. LUNGS: Respiratory rate normal; clear to auscultation. ABDOMEN: Soft, some abdominal distention and tenderness r, liver spleen not palpable, no masses palpable. PSYCH: Alert and oriented x3; mood and affect akira l. MUSCULOSKELETAL:No Clubbing/cyanosis;muscles-grossly intact. Tenderness to multiple joint INVESTIGATIONS, reviewed in the clinical context: October 31: White count 15.7 hemoglobin 10.4 potassium 3.6 creatinine 0.8 AST 54 ALT 85 alkaline phosphatase 545 October 30: White count 16.6 hemoglobin 9.6 potassium 4 creatinine 0.93 October 29: White count 12.9 hemoglobin 8.9 potassium 3.7 BUN 27 creatinine 1.05. Sodium 128 October 28: White count 10.3 hemoglobin 10.1 potassium 4.3 creatinine 1.1 T3 61 ALT 321 alkaline phosphatase 297 total bilirubin 2.8 Note: White count 7.8 hemoglobin 10.7 platelets 171 sodium 134 potassium 4.1 creatinine 0.75 October 26: White count 9.3 hemoglobin 10.4 platelets 186 potassium 4.4 BUN 20 Lucas 9.6 creatinine 0.8 AST 17 ALT 16 Troponin I less than 0.012 x 2. proBNP 493 October 25: White count 10.6 EKG tracing personally reviewed by me-normal sinus rhythm nonspecific, ST-T wave changes Chest x-ray film personally reviewed by me-nonspecific CT abdomen pelvis with contrast: Distended gallbladder with gallstones. Mild gallbladder wall thickening/edema. Chest CTA: Coronary artery calcification. Negative for PE Assessment plan: - acute cholecystitis: Robotic cholecystectomy, October 27 Regular diet Has not had a bowel movement. Increase activity Oral intake slowly improving - Acute leukocytosis. Continue with IV Zosyn. - Hyponatremia. Encourage solid food intake - Hyperlipidemia Lipitor - Acute postop transaminitis. Repeat labs - Essential hypertension Lopressor, Norvasc, Zestril - Primary osteoarthritis multiple joints Pain medication as needed - CAD with stent about 3 years ago Aspirin. Lopressor. Oral intake slowly improving. Spoke to nurse and the patient up in chair. Increase with activity. Past Medical History Past Medical History: Hypertension Additional Past Medical History / Comment(s): Neuropathy, Arthritis History of Any Multi-Drug Resistant Organisms: None Reported Past Surgical History: Hysterectomy, Joint Replacement, Orthopedic Surgery Additional Past Surgical History / Comment(s): bilat shoulder surgery, left total hip replacement 2022 at [facility] Past Psychological History: No Psychological Hx Reported Smoking Status: Never smoker Past Alcohol Use History: None Reported Past Drug Use History: None Reported Plan - Discharge Summary Discharge Rx Participant: Yes New Discharge Prescriptions: No Action Fexofenadine HCl [Jackeline Allergy] 90 mg PO BID Calcium Carbonate [Calcium] 600 mg PO DAILY Etanercept [Enbrel Sureclick] 50 mg SQ TH Atorvastatin [Lipitor] 40 mg PO HS #30 tab Nitroglycerin Sl Tabs [Nitrostat] 0.4 mg SUBLINGUAL Q5M PRN #20 tab PRN Reason: Chest Pain lisinopriL [Zestril] 20 mg PO DAILY #30 tab amLODIPine [Norvasc] 5 mg PO DAILY #30 tab Metoprolol Tartrate [Lopressor] 50 mg PO DAILY Nitrofurantoin Monohyd/M-Cryst [Macrobid] 100 mg PO DAILY Cholecalciferol [Vitamin D3 (25 Mcg = 1000 Iu)] 50 mcg PO DAILY Metoprolol Tartrate [Lopressor] 25 mg PO HS Discharge Medication List Calcium Carbonate [Calcium] 600 mg PO DAILY 01/30/20 [History] Etanercept [Enbrel Sureclick] 50 mg SQ TH 01/30/20 [History] Fexofenadine HCl [Jackeline Allergy] 90 mg PO BID 01/30/20 [History] Atorvastatin [Lipitor] 40 mg PO HS #30 tab 02/02/20 [Rx] Nitroglycerin Sl Tabs [Nitrostat] 0.4 mg SUBLINGUAL Q5M PRN #20 tab 02/02/20 [Rx] amLODIPine [Norvasc] 5 mg PO DAILY #30 tab 02/02/20 [Rx] lisinopriL [Zestril] 20 mg PO DAILY #30 tab 02/02/20 [Rx] Cholecalciferol [Vitamin D3 (25 Mcg = 1000 Iu)] 50 mcg PO DAILY 10/25/24 [History] Metoprolol Tartrate [Lopressor] 25 mg PO HS 10/25/24 [History] Metoprolol Tartrate [Lopressor] 50 mg PO DAILY 10/25/24 [History] Nitrofurantoin Monohyd/M-Cryst [Macrobid] 100 mg PO DAILY 10/25/24 [History] Follow up Appointment(s)/Referral(s): Dave Emerson MD [Primary Care Provider] - 1-2 days Rashaad Mcqueen DO [Medical Doctor] - 1 Week
[2024-11-01 07:51] VITALS: PULSE 82; RESP 18
[2024-11-01 08:34] VITALS: BP 115/67; TEMP 97.8
--- NOTE | 2024-11-02 14:19 | P.DS ---
Providers Date of admission: 10/25/24 19:53 Expected date of discharge: 11/01/24 Attending physician: Vini Ashraf Consults: 10/25/24 19:51 Consult Physician Routine Consulting Provider: Ronaldo Cordova Consult Reason/Comments: cholecystitis Do you want consulting provider notified?: Yes Primary care physician: Dave Idania [facility] Course: Chief Complaint: Pain Very pleasant 84-year-old patient who follows with Dr. Dave Emerson. Chronic medical conditions include osteoarthritis in multiple joints and keeps flaring up in different places. Hypertension. [place] 3 years ago with a stent. Patient has a flare of pain yesterday. In the back and the front in the abdomen. Decided to come in. Multiple locations. No fever no chills. No cough. October 27: Have abdominal pain. Seen this afternoon. NPO. Going down for surgery. Patient is no bedside. iv zosyn October 28: Patient seen this morning. Some abdominal pain. On regular diet by surgery. No flatus. No BM. Requesting to stay 1 more day. Lives by herself. Also noted increased. LFTs October 29: Patient seen this morning. Has abdominal pain. Eating little. No bowel movement. Still having some pain. Spoke to nurse increase activity. IV Zosyn. October 30: Abdomen feels a bit distended. Pain present. No nausea vomiting. Some improvement with oral intake. Was up in the chair. Did have the nurse to ambulate the patient. Increasing white count. Remains on IV Zosyn. Not ready for discharge October 31: Patient doing much better. Seen this morning. Has not had a bowel mo vement. Eating better. Ambulating. Pain much improved. On IV Zosyn. No nausea vomiting November 01: Patient rates improved. Had 2 l significant bowel movements, overnight. Tolerating diet. Pain much better. Cleared by surgery will be discharged on Augmentin. Patient follow-up with surgeon Dr. Mcqueen. Questions answered Social history: Lives alone. No smoking or alcohol. Physical examination: VITAL SIGNS:, 97.8, 95, 18, 150 x 67, 94% room air GENERAL: BMI 22.3, comfortable EYES: Pupils equal. Conjunctiva akira l. HEENT: External appearance of nose and ears normal, oral cavity grossly normal. NECK: JVD not raised; masses not palpable. HEART: First and second heart sounds are normal; no edema. LUNGS: Respiratory rate normal; clear to auscultation. ABDOMEN: Soft, minimal tenderness soft, liver spleen not palpable, no masses palpable. PSYCH: Alert and oriented x3; mood and affect akira l. MUSCULOSKELETAL:No Clubbing/cyanosis;muscles-grossly intact. Tenderness to multiple joint INVESTIGATIONS, reviewed in the clinical context: October 31: White count 15.7 hemoglobin 10.4 potassium 3.6 creatinine 0.8 AST 54 ALT 85 alkaline phosphatase 545 October 30: White count 16.6 hemoglobin 9.6 potassium 4 creatinine 0.93 October 29: White count 12.9 hemoglobin 8.9 potassium 3.7 BUN 27 creatinine 1.05. Sodium 128 October 28: White count 10.3 hemoglobin 10.1 potassium 4.3 creatinine 1.1 T3 61 ALT 321 alkaline phosphatase 297 total bilirubin 2.8 Note: White count 7.8 hemoglobin 10.7 platelets 171 sodium 134 potassium 4.1 creatinine 0.75 October 26: White count 9.3 hemoglobin 10.4 platelets 186 potassium 4.4 BUN 20 Lucas 9.6 creatinine 0.8 AST 17 ALT 16 Troponin I less than 0.012 x 2. proBNP 493 October 25: White count 10.6 EKG tracing personally reviewed by me-normal sinus rhythm nonspecific, ST-T wave changes Chest x-ray film personally reviewed by me-nonspecific CT abdomen pelvis with contrast: Distended gallbladder with gallstones. Mild gallbladder wall thickening/edema. Chest CTA: Coronary artery calcification. Negative for PE Assessment plan: - acute cholecystitis: Robotic cholecystectomy, October 27 Regular diet Had bowel movement Oral intake improved Discharged on Augmentin for 5 days Follow-up with Dr. Knapp from surgery - Acute leukocytosis. Continue with IV Zosyn. Augmentin - Hyponatremia. Encourage solid food intake - Hyperlipidemia Lipitor - Acute postop transaminitis. Repeat labs - Essential hypertension Lopressor, Norvasc, Zestril - Primary osteoarthritis multiple joints Pain medication as needed - CAD with stent about 3 years ago Aspirin. Lopressor. Disposition: Home Past Medical History Past Medical History: Hypertension Additional Past Medical History / Comment(s): Neuropathy, Arthritis History of Any Multi-Drug Resistant Organisms: None Reported Past Surgical History: Hysterectomy, Joint Replacement, Orthopedic Surgery Additional Past Surgical History / Comment(s): bilat shoulder surgery, left total hip replacement 2022 at [facility] Past Psychological History: No Psychological Hx Reported Smoking Status: Never smoker Past Alcohol Use History: None Reported Past Drug Use History: None Reported Plan - Discharge Summary Discharge Rx Participant: Yes New Discharge Prescriptions: New Aspirin 81 mg PO DAILY tab Psyllium Husk 100% [Metamucil Packet] 6 gm PO DAILY #7 packet Amoxic-Pot Clav 875-125Mg [Augmentin 875-125] 1 tab PO BID #10 tab Continue Fexofenadine HCl [Jackeline Allergy] 90 mg PO BID Calcium Carbonate [Calcium] 600 mg PO DAILY Etanercept [Enbrel Sureclick] 50 mg SQ TH Atorvastatin [Lipitor] 40 mg PO HS #30 tab Nitroglycerin Sl Tabs [Nitrostat] 0.4 mg SUBLINGUAL Q5M PRN #20 tab PRN Reason: Chest Pain lisinopriL [Zestril] 20 mg PO DAILY #30 tab amLODIPine [Norvasc] 5 mg PO DAILY #30 tab Metoprolol Tartrate [Lopressor] 50 mg PO DAILY Cholecalciferol [Vitamin D3 (25 Mcg = 1000 Iu)] 50 mcg PO DAILY Metoprolol Tartrate [Lopressor] 25 mg PO HS Discontinued Nitrofurantoin Monohyd/M-Cryst [Macrobid] 100 mg PO DAILY Discharge Medication List Calcium Carbonate [Calcium] 600 mg PO DAILY 01/30/20 [History] Etanercept [Enbrel Sureclick] 50 mg SQ TH 01/30/20 [History] Fexofenadine HCl [Jackeline Allergy] 90 mg PO BID 01/30/20 [History] Atorvastatin [Lipitor] 40 mg PO HS #30 tab 02/02/20 [Rx] Nitroglycerin Sl Tabs [Nitrostat] 0.4 mg SUBLINGUAL Q5M PRN #20 tab 02/02/20 [Rx] amLODIPine [Norvasc] 5 mg PO DAILY #30 tab 02/02/20 [Rx] lisinopriL [Zestril] 20 mg PO DAILY #30 tab 02/02/20 [Rx] Cholecalciferol [Vitamin D3 (25 Mcg = 1000 Iu)] 50 mcg PO DAILY 10/25/24 [History] Metoprolol Tartrate [Lopressor] 25 mg PO HS 10/25/24 [History] Metoprolol Tartrate [Lopressor] 50 mg PO DAILY 10/25/24 [History] Amoxic-Pot Clav 875-125Mg [Augmentin 875-125] 1 tab PO BID #10 tab 11/01/24 [Rx] Aspirin 81 mg PO DAILY tab 11/01/24 [Rx] Psyllium Husk 100% [Metamucil Packet] 6 gm PO DAILY #7 packet 11/01/24 [Rx] Follow up Appointment(s)/Referral(s): Dave Emerson MD [Primary Care Provider] - 1-2 days Rashaad Mcqueen DO [Medical Doctor] - 1 Week Patient Instructions/Handouts: *Surgery [facility] - Laparoscopic Cholecystectomy Discharge Instructions Discharge Disposition: HOME SELF-CARE
--- NOTE | 2024-11-04 11:08 | CDI ---
Documentation Clarification Form Date: 11/04/2024 11:01:50 AM From: Jil Junior Phone: Admit Date: 10/25/2024 07:53:00 PM Patient Name: Chanel Jarrett Visit Number: [id number] Discharge Date: 11/01/2024 11:15:00 AM ATTENTION: The Clinical Documentation Specialists (CDI) and [facility] Coding Staff appreciate your assistance in clarifying documentation. Please respond to the clarification below the line at the bottom and electronically sign. The CDI & [facility] Coding staff will review the response and follow-up if needed. Please note: Queries are made part of the Legal Health Record. If you have any questions, please contact the author of this message via ITS. Doctor/Provider: Vini Ashraf The final diagnosis of the pathology report states Acute and chronic cholecystitis with cholelithiasis. Coding guidelines do not allow coding professionals to code based on pathology results; therefore, clarification is requested. History/risk factors: 84yo F, Cholecystitis, HLD, HTN, primary OAmultiple joints, CAD w stent, RA, hypomagnesemia Clinical Indicators: an intact, purple-begum gallbladder, 10.5 x 4.5 x 2.5 cm. The lumen is filled with tarry, dark brown bile and less than 10, faceted brown- blackcalculiranging from 0.6 to 0.8 cm in greatest dimension. The mucosa is red-brown and velvety. The wall averages 0.3 cm thick and thecysticduct is patent. Treatment: Cholecystectomy Please clarify if you agree with the pathology report diagnosis of Acute and chronic cholecystitis with cholelithiasis: [ + ] Yes [ ] No [ ] Acute cholecystitis with cholelithiasis only [ ] Chronic cholecystitis with cholelithiasis only [ ] Other (please specify) [ ] Unable to determine (Template Last Revised: July 2020) MTDD
== END 2024-11-01 11:15 | disposition home or self-care (01) | DRG 418 ==
LOC: EC 16:03 → 6NMEDSUR 19:52 → OBSVTOIN 19:53 → 6NMEDSUR 20:44
PROVIDERS: ADMIT Hospitalist; ATTEND Hospitalist
PROC: 8E0W4CZ Robotic Assisted Procedure of Trunk Region, Percutaneous Endoscopic Approach (ICD-10-PCS; 2024-10-27)
PROC: 0FT44ZZ Resection of Gallbladder, Percutaneous Endoscopic Approach (ICD-10-PCS; principal; 2024-10-27 14:40)
DX: K80.12 Calculus of gallbladder with acute and chronic cholecystitis without obstruction (principal); E87.1 Hypo-osmolality and hyponatremia; M06.9 Rheumatoid arthritis, unspecified; I10 Essential (primary) hypertension; E78.5 Hyperlipidemia, unspecified; E83.42 Hypomagnesemia; K82.8 Other specified diseases of gallbladder; I25.10 Atherosclerotic heart disease of native coronary artery without angina pectoris; K59.00 Constipation, unspecified; R74.01 Elevation of levels of liver transaminase levels; D72.829 Elevated white blood cell count, unspecified; M15.9 Polyosteoarthritis, unspecified; Z96.642 Presence of left artificial hip joint; Z95.5 Presence of coronary angioplasty implant and graft; I25.2 Old myocardial infarction; Z79.899 Other long term (current) drug therapy
CPT/HCPCS: 36415; 71046; 71275; 74177; 76705; 80048; 80053; 80076; 83690; 83735; 83880; 84100; 84484; 85025; 85379; 85610; 85730; 88304; 93005; 93306; 94760; 96365; 96375; 99285